=== PATIENT | female | born 1955 | race Caucasian/White ===

== ENCOUNTER 2016-03-15 18:53 | Inpatient (IN) | payer MEDICARE ==
[2016-03-15] MEDS ORDERED: MAGNESIUM SULFATE/D5W 100 ML IV ONE (19:25)
[2016-03-15] MEDS ORDERED: NORMAL SALINE 1000 ML 1,000 ML IV ONE ×3 (19:26→19:59)
[2016-03-15] MEDS ORDERED: VANCOMYCIN HCL INJ 1000 MG VIAL IV ONE (19:57)
--- NOTE | 2016-03-15 19:57 | ER Document Report ---
ED Respiratory Problem - General Stated Complaint: RESPIRATORY DISTRESS Time seen by provider: 19:50 Notes: Patient is a 60-year-old female that comes by EMS for chief complaint of respiratory distress. HEENT was found to be wheezing with poor air movement, given 3 treatments of DuoNeb, given Solu-Medrol, patient states she has been sick with a cough for the past several days and was "too sick to move", family had difficulty moving her reportedly. Patient has a history of asthma/COPD, has inhalers but is not on home oxygen. TRAVEL OUTSIDE OF THE [place] IN LAST 30 DAYS: No - Related Data Allergies/Adverse Reactions: No Known Allergies Allergy (Verified 01/06/15 15:02) Past Medical History - General Information source: Patient, Emergency Med Personnel - Social History Smoking Status: Current Every Day Smoker Frequency of alcohol use: None Drug Abuse: None Lives with: Family Family History: Reviewed & Not Pertinent - Past Medical History Cardiac Medical History: Reports: Hx Hypercholesterolemia, Hx Hypertension Denies: Hx Heart Attack Pulmonary Medical History: Reports: Hx Asthma, Hx COPD GI Medical History: Reports: Hx Gastroesophageal Reflux Disease Musculoskeltal Medical History: Reports Hx Arthritis Skin Medical History: Reports Hx Cellulitis Psychiatric Medical History: Reports: Hx Depression - Not currently depressed Past Surgical History: Reports: Hx Bowel Surgery, Hx Hysterectomy, Hx Tonsillectomy - Immunizations Hx Pneumococcal Vaccination: 03/03/12 Review of Systems - Review of Systems Constitutional: No symptoms reported EENT: No symptoms reported Cardiovascular: See HPI Respiratory: See HPI Gastrointestinal: No symptoms reported Genitourinary: No symptoms reported Female Genitourinary: No symptoms reported Musculoskeletal: No symptoms reported Skin: No symptoms reported Hematologic/Lymphatic: No symptoms reported Neurological/Psychological: No symptoms reported Physical Exam - Vital signs Vitals: Pulse Ox 87 L 03/15/16 19:17 Interpretation: Normal - General General appearance: Anxious In distress: Moderate - Patient with labored breathing and coughing - HEENT Head: Normocephalic, Atraumatic Eyes: Normal Pupils: PERRL - Respiratory Respiratory status: Respiratory distress, Labored, Tachypnea Breath sounds: Decreased air movement, Nonproductive cough, Rhonchi, Wheezing - Cardiovascular Rhythm: Regular, Tachycardia Heart sounds: Normal auscultation, S1 appreciated, S2 appreciated Murmur: No - Abdominal Inspection: Normal Distension: No distension Bowel sounds: Normal Tenderness: Nontender. No: Tender - Back Back: Normal, Nontender - Extremities General upper extremity: Normal inspection, Nontender, Normal color, Normal ROM , Normal temperature General lower extremity: Normal inspection, Nontender, Normal color, Normal ROM , Normal temperature, Normal weight bearing. No: Amado's sign - Neurological Neuro grossly intact: Yes Cognition: Normal Orientation: AAOx4 Jojo Coma Scale Eye Opening: Spontaneous [place] Coma Scale Verbal: Oriented [place] Coma Scale Motor: Obeys Commands [place] Coma Scale Total: 15 Speech: Normal Motor strength normal: LUE, RUE, LLE, RLE Sensory: Normal - Psychological Associated symptoms: Anxious - Skin Skin irregularity: other - Patient with widespread skin breakdown over her lower extremities, thighs, groin, and even on her back. Patient with excoriations all over her arms and hands. Built up urine and excrement in the groin region Course - Re-evaluation Re-evalutation: On initial examination patient in respiratory distress with tachypnea and hypoxia, labored breathing, wheezing and decreased lung sounds throughout. Patient also noted to be tachycardic, hypotensive, sepsis suspected. Referral lines placed, patient immediately placed on BiPAP, has already been given 3 DuoNeb treatments and Solu-Medrol, patient treated with magnesium, treating with broad-spectrum antibiotics. Patient reevaluated multiple times, given additional IV fluids, blood pressure is maintaining around 90s systolic on average. Patient is much improved after BiPAP therapy. Leukocytosis noted at 22.8 with elevation of neutrophils, lactic acid elevated at 4.1, bicarbonate and pH are low. Attempted to place a Woods catheter, however patient appears to have remained immobile for a long time, patient unable to open her legs, we are unable to open her legs to place a Woods catheter. We did clean the groin areas. Patient with widespread skin breakdown, most likely from lying in her excrement. I strongly suspect that a urinary tract infection as the source of her sepsis although this cannot be confirmed. Discussed with Dr. Kay, internal medicine, he will admit to the ICU. - Vital Signs Vital signs: Temp Pulse Resp BP Pulse Ox 23 H 93/73 L 100 03/15/16 19:51 03/15/16 19:51 03/15/16 19:51 - Laboratory Result Diagrams: 03/15/16 19:35 03/15/16 19:35 Laboratory results interpreted by me: 03/15/16 03/15/16 03/15/16 19:35 19:35 19:35 WBC 22.8 H RBC 3.69 L Hgb 10.4 L Hct 33.2 L MCHC 31.3 L RDW 16.2 H Seg Neuts % (Manual) 86 H Lymphocytes % (Manual) 7 L Abs Neuts (Manual) 19.6 H VBG pH 7.27 L Sodium 145.1 H Potassium 3.3 L Carbon Dioxide 20 L Glucose 129 H Lactic Acid Albumin 3.2 L 03/15/16 19:35 WBC RBC Hgb Hct MCHC RDW Seg Neuts % (Manual) Lymphocytes % (Manual) Abs Neuts (Manual) VBG pH Sodium Potassium Carbon Dioxide Glucose Lactic Acid 4.1 H Albumin Critical Care Note - Critical Care Note Total time excluding time spent on procedures (mins): 40 - severe sepsis, respiratory distress, hypoxia Comments: Please allow 40 minutes of critical care time for evaluation and treatment of patient with respiratory distress, SIRS, hypotension, tachycardia. Treatments of BiPAP therapy, IV fluids, antibiotics, magnesium, multiple re-evaluations, consultation and admission to the ICU. Discharge - Discharge Clinical Impression: Respiratory distress, SIRS (systemic inflammatory response syndrome), Tachycardia, COPD exacerbation, Hypoxia Hypotension Qualifiers: Hypotension type: unspecified hypotension type Qualified Code(s): I95.9 - Hypotension, unspecified Disposition: ADMITTED INPATIENT Admitting Provider: Hospitalist - Dr. Kay Unit Admitted: ICU
[2016-03-15] MEDS ORDERED: PIPERACILLIN/TAZOBACTAM 3.375 GM VIAL IV ONE (19:59)
[2016-03-15 20:43] LABS: VENOUS BLOOD BASE EXCESS -5.8 mmol/L; VENOUS BLOOD HCO3 21.4 mmol/L (20-32); VENOUS BLOOD PCO2 47.8 mmHg (35-63); VENOUS BLOOD PH 7.27 (7.30-7.42)
[2016-03-15 20:58] LABS: HEMATOCRIT 33.2 % (36.0-47.0); HEMOGLOBIN 10.4 g/dL (12.0-15.5); MEAN CORPUSCULAR HEMOGLOBIN 28.1 pg (27.0-33.4); MEAN CORPUSCULAR HGB CONC 31.3 g/dL (32.0-36.0); MEAN CORPUSCULAR VOLUME 90 fl (80-97); RED BLOOD COUNT 3.69 10^6/uL (3.72-5.28); RED CELL DISTRIBUTION WIDTH 16.2 % (11.5-14.0); WHITE BLOOD COUNT 22.8 10^3/uL (4.0-10.5)
[2016-03-15 21:03] LABS: ALANINE AMINOTRANSFERASE 19 U/L (9-52); ALBUMIN 3.2 g/dL (3.5-5.0); ALKALINE PHOSPHATASE 117 U/L (38-126); ANION GAP 19 (5-19); ASPARTATE AMINO TRANSFERASE 20 U/L (14-36); BILIRUBIN,TOTAL 0.9 mg/dL (0.2-1.3); BLOOD UREA NITROGEN 16 mg/dL (7-20); CALCIUM 8.6 mg/dL (8.4-10.2); CARBON DIOXIDE 20 mmol/L (22-30); CHLORIDE 106 mmol/L (98-107); CREATINE KINASE 33 U/L (30-135); CREATININE RESULT 0.89 mg/dL (0.52-1.25); GLUCOSE 129 mg/dL (75-110); POTASSIUM 3.3 mmol/L (3.6-5.0); SODIUM 145.1 mmol/L (137-145); TOTAL PROTEIN 6.3 g/dL (6.3-8.2)
[2016-03-15 21:11] LABS: CREATINE KINASE MB 0.84 ng/mL (<4.55)
[2016-03-15 21:12] LABS: TROPONIN I < 0.012 ng/mL
[2016-03-15 21:19] LABS: BASOPHILS % (MANUAL) 0 % (0-2); EOSINOPHILS % (MANUAL) 2 % (0-6); LYMPHOCYTES % (MANUAL) 7 % (13-45); TOTAL CELLS COUNTED 100
[2016-03-15 21:20] LABS: ANISOCYTOSIS SLIGHT; TOXIC GRANULATION SLIGHT
[2016-03-16] MEDS ORDERED: 1/2 NORMAL SALINE 1,000 ML IV ONE (00:22)
[2016-03-16] MEDS ORDERED: ALBUTEROL SULFATE 0.083% NEB 2.5 MG/3 ML AMPUL NEB PRN (00:50)
[2016-03-16 00:59] LABS: VENOUS BLOOD BASE EXCESS -5.7 mmol/L; VENOUS BLOOD HCO3 20.7 mmol/L (20-32); VENOUS BLOOD PCO2 44.6 mmHg (35-63); VENOUS BLOOD PH 7.28 (7.30-7.42)
[2016-03-16] MEDS ORDERED: VANCOMYCIN HCL 0 MG in DEXTROSE 5%-WATER 250 ML IV NR (01:00)
[2016-03-16] MEDS ORDERED: DEXTROSE 50%-WATER 25 GM/50 ML DISP.SYRIN IV PRN ×2 (01:01)
[2016-03-16] MEDS ORDERED: DEXTROSE 40% GEL 15 GM TUBE PO PRN ×2 (01:01)
[2016-03-16] MEDS ORDERED: GLUCAGON,HUMAN RECOMB 1 MG INJ IM PRN (01:01)
[2016-03-16] MEDS ORDERED: INSULIN LISPRO 100 UNIT/ML 3 ML VIAL SUBCUT PRN (01:01)
[2016-03-16] MEDS: POTASSI CL 20 MEQ/50 ML RIDER 50 ML IV SCH ×2 (01:57→07:00)
[2016-03-16] MEDS: POTASSI CL 20 MEQ/1/2NS 1L 1,000 ML IV PRN ×2 (01:58→06:53)
[2016-03-16] MEDS ORDERED: PIPERACILLIN/TAZOBACTAM 4.5 GM VIAL IV PRN (02:24)
[2016-03-16] MEDS ORDERED: VANCOMYCIN HCL INJ 1000 MG VIAL IV PRN (02:25)
[2016-03-16] MEDS ORDERED: VANCOMYCIN HCL 2,000 MG in DEXTROSE 5%-WATER 500 ML IV ONE (04:00)
--- NOTE | 2016-03-16 05:08 | PDOC H&P ---
History of Present Illness Admission Date/PCP: 03/15/16 22:39 Patient complains of: resp distress History of Present Illness: MARTIR CALIX is a 60 year old female with underlying asthma and COPD, not on home O2, who presents to ER via EMS for evaluation of above complaint. Patient has been discussed with emergency room nurse practitioner who evaluated the patient. Patient only mumbles incoherently and is able to provide no history whatsoever in terms of acute or chronic events, review of systems, personal habits, family history, etc. No friends or family are present. Old inpatient records are reviewed.. According to EMS, family stated she has been sick for with a cough for the past several days and was "too sick to move," with family having difficulty moving her reportedly. Patient apparently has been nonambulatory for some time, and has a hospital bed at home. Patient reportedly had urine and feces on her when initially evaluated by EMS. No further information available this point in time. Despite a number of attempts by ER personnel, Woods insertion attempts were unsuccessful due to inability to properly spread her thighs, felt due to chronic stiffness, combined with her body habitus, According to the ER staff. Laboratory results are listed in [employer] and are reviewed. X-ray summary results are listed below, with full report(s) reviewed. . EKG reviewed. Compared to tracing from 01/06/2015. Social history/personal habits: Per old records, was smoking at one time. No further information available this point in time. Allergies/adverse reactions NKDA. Home medications Home medications initially autopopulated into [employer] may not accurately reflect patient's true medications, dosages, and/or frequencies. Order has been entered for staff to contact family, outpatient physician, and/ or pharmacy to more accurately determine medications, dosages, and frequencies and to contact physician when that has been accomplished. REVIEW OF SYSTEMS: See history and present illness. No further information available this point in time. PHYSICAL EXAMINATION: 110.2 kg. Height is not recorded on the chart. Temperature 97.4. Blood pressure 110/74. Pulse 119 and regular. Respirations are 20 and unlabored. 100 percent saturation on BiPAP 50% /. Obese chronically ill appearing disheveled female appearing a number of years older than her stated age. Female emergency room nurse Marianne is present Skin is warm and dry. No grossly obvious evidence of rash in areas of skin examined. No subcutaneous nodules palpated. Per nursing staff, patient has extensive decubiti, combination stage I and stage II, on back and buttocks. Patient has areas of inflammation and excoriation, with eschar, on her upper medial thighs, right greater than left, along with her suprapubic region. ENT: Hearing grossly normal to normal conversation. Does Not protrude tongue on request. No Lock sign. Exam slightly limited by BiPAP mask with attaching straps. Eyes: No scleral icterus. Pupils equal and reactive to light at 5 mm. [place] conjunctivae. No raccoon eyes. Neck is supple and nontender to gentle active range of motion and palpation. Midline trachea. No palpable thyroid nodule mass enlargement or tenderness. Lymphatic: No palpable cervical or clavicular nodes. Neck and lymphatic exams limited by patient body habitus. Exam slightly limited by BiPAP mask with attaching straps. Psychiatric: Can't be adequately evaluated due to her current status. Lungs: Auscultation reveals equal breath sounds bilaterally. No use of accessory respiratory muscles. Slightly coarse breath sounds medially in each hemithorax. No wheezing. Cardiovascular: Heart regular rate and rhythm, without gallop murmur or rub. No carotid or abdominal aortic bruits. Very mild bilateral symmetric ankle and pedal edema. Faintly palpable dorsalis pedis pulses. Abdomen: soft, obese, somewhat distended nontender with positive bowel sounds. Unable to adequately evaluate abdomen for masses or organomegaly due to body habitus and distention. Extremities: Feet are warm and dry. No calf tenderness to compression. No grossly obvious visual evidence of calf swelling. manipulation of lower extremities quite limited due to what feels to be combination of chronic stiffness along with patient not understanding request to relax her muscles and bend her legs at the knees and hips. Neurologic: Moves upper extremities grossly normally. Patellar reflexes absent. Absent Babinski. Light touch can't be determined due to her current status.. Dorsiflexion and plantarflexion of feet 5 / 5 and symmetric. Does look at examiner when spoken to in a normal volume voice. Mumbles quietly, incoherently. Past Medical History Cardiac Medical History: Reports: Hyperlipidema, Hypertension Denies: Myocardial Infarction Pulmonary Medical History: Reports: Asthma, Chronic Obstructive Pulmonary Disease (COPD) Neurological Medical History: Reports: Other - Chronic inability to walk, of uncertain specific etiology. GI Medical History: Reports: Gastroesophageal Reflux Disease Musculoskeltal Medical History: Reports: Arthritis Psychiatric Medical History: Reports: Depression - Not currently depressed, Other - History of opiate dependency Past Surgical History Past Surgical History: Reports: Hysterectomy, Tonsillectomy Social History Information Source: Emergency Med Personnel, [facility] Lives with: Family Smoking Status: Current Every Day Smoker Frequency of Alcohol Use: Occasional Hx Recreational Drug Use: No Hx Prescription Drug Abuse: No - Advance Directive Resuscitation Status: Full Code Surrogate healthcare decision maker:: Her daughter jackelyn [place] old records. Family History Family History: Reviewed & Not Pertinent Parental Family History Reviewed: Yes - per old records Children Family History Reviewed: Yes Sibling(s) Family History Reviewed.: Yes Medication/Allergy Home Medications: Albuterol Sulfate [Proair Respiclick] 2 puff IH QIDP PRN 03/16/16 Amitriptyline HCl [Elavil 150 mg Tablet] 150 mg PO QHS 03/16/16 Cyclobenzaprine HCl [Flexeril 10 mg Tablet] 10 mg PO TID 03/16/16 Duloxetine HCl 30 mg PO DAILY 03/16/16 Ergocalciferol (Vitamin D2) [Drisdol 50,000 unit (1.25MG) Capsule] 50,000 unit PO MO@1000 03/16/16 Fesoterodine Fumarate [Toviaz] 8 mg PO QHS 03/16/16 Fluticasone Propionate [Flonase Nasal [place] 50 Mcg/[place] 16 gm] 1 spray NASL BIDP PRN 03/16/16 Lisinopril [Prinivil] 20 mg PO DAILY 03/16/16 Methadone HCl [Dolophine 10 mg Tablet] 5 mg PO QID 03/16/16 Nystatin [Mycostatin Cream 15 gm] 1 applic TOP QID 03/16/16 Omeprazole 40 mg PO DAILY 03/16/16 Simvastatin [Zocor 40 mg Tablet] 40 mg PO DAILY 03/16/16 Tramadol HCl [Tramadol HCl ER] 300 mg PO DAILY 03/16/16 Allergies/Adverse Reactions: No Known Allergies Allergy (Verified 03/16/16 23:43) Physical Exam Vital Signs: Temp Pulse Resp BP Pulse Ox 23 H 93/73 L 100 03/15/16 19:51 03/15/16 19:51 03/15/16 19:51 Results Impressions: Chest X-Ray 03/15/16 19:21 IMPRESSION: NO ACUTE RADIOGRAPHIC FINDING IN THE CHEST. Assessment & Plan - Diagnosis (1) Acute and chronic respiratory failure with hypercapnia Is this a current diagnosis for this admission?: YesPlan: Patient will be admitted under COPD exacerbation and pneumonia protocol. Scheduled DuoNeb's. PRN albuterol nebs Solu-Medrol IV Pepcid for gastritis prophylaxis. Antibiotics will consist of intravenous Levaquin and vancomycin, along with Zosyn, for possible community-acquired pneumonia, with ICU admission. Pharmacy to assist with vancomycin dosing.. Patient is a full code. Knee high SCDs for DVT prophylaxis, along with subcutaneous Lovenox Time spent in evaluation and management of patient: 65 minutes. (2) Acute encephalopathy Is this a current diagnosis for this admission?: YesPlan: Likely multifactorial, including infection and possible dehydration. Hopefully will resolve with time and treatment. CT scan of brain without contrast. Nothing by mouth for the present time. (3) Anemia Qualifiers: Anemia type: unspecified type Qualified Code(s): D64.9 - Anemia, unspecified Is this a current diagnosis for this admission?: YesPlan: Chronic problem. Repeat CBC with differential. No need for transfusion at present. (4) COPD exacerbation Is this a current diagnosis for this admission?: Yes (5) Hypernatremia Is this a current diagnosis for this admission?: YesPlan: Likely due to an element of dehydration. IV fluids. Follow-up chemistry. (6) Hypokalemia Is this a current diagnosis for this admission?: YesPlan: Potassium supplement. Follow-up chemistry. (7) Hypotension Qualifiers: Hypotension type: unspecified hypotension type Qualified Code(s): I95.9 - Hypotension, unspecified Is this a current diagnosis for this admission?: YesPlan: Likely due to at least an element of dehydration, along with possibly sepsis also. Has responded nicely to IV fluid boluses and maintenance IV fluid. Follow closely. When necessary vasopressor. (8) Multiple excoriations Is this a current diagnosis for this admission?: YesPlan: Local wound care, including bacitracin ointment. (9) Decubitus ulcer of back, unstageable Is this a current diagnosis for this admission?: YesPlan: Innovative mattress. Turn every 2 hours. Dietary consult. Discharge planning to assess for needs; may need half-way placement. (10) Decubitus ulcer of buttock, unstageable Qualifiers: Laterality: unspecified laterality Qualified Code(s): L89.300 - Pressure ulcer of unspecified buttock, unstageable Is this a current diagnosis for this admission?: Yes (11) Unable to ambulate Is this a current diagnosis for this admission?: Yes - Inpatient Certification Based on my medical assessment, after consideration of the patient's comorbidities, presenting symptoms, or acuity I expect that the services needed warrant INPATIENT care.: Yes I certify that my determination is in accordance with my understanding of Medicare's requirements for reasonable and necessary INPATIENT services [42 CFR 412.3e].: Yes Medical Necessity: Significant Comorbidiites Make Outpatient Treatment Too Risky , Need Close Monitoring Due to Risk of Patient Decompensation, Need For IV Fluids, Need For Continuous Telemetry Monitoring, Need for Nebulizer Therapy and Monitoring of Response, Need for IV Antibiotics, Risk of Complication if Not Cared For in Hospital, Risk of Diagnosis Which Will Require Inpatient Eval/ Care/Monitoring Post Hospital Care: D/C or Transfer Summary
[2016-03-16 05:38] LABS: APPEARANCE,URINE TURBID; BILIRUBIN,URINE NEGATIVE (NEGATIVE); GLUCOSE, URINE NEGATIVE (NEGATIVE); KETONES,URINE NEGATIVE (NEGATIVE); LEUKOCYTE ESTERASE,URINE MODERATE (NEGATIVE); NITRITE,URINE POSITIVE (NEGATIVE); PROTEIN,URINE 100 mg/dL (NEGATIVE); URINE SPECIFIC GRAVITY 1.016
[2016-03-16 06:16] LABS: VENOUS BLOOD BASE EXCESS -4.1 mmol/L; VENOUS BLOOD HCO3 23.7 mmol/L (20-32); VENOUS BLOOD PCO2 57.5 mmHg (35-63); VENOUS BLOOD PH 7.23 (7.30-7.42)
[2016-03-16 06:23] LABS: HEMATOCRIT 30.3 % (36.0-47.0); HEMOGLOBIN 8.9 g/dL (12.0-15.5); HGB HCT DIFFERENCE -3.6; MEAN CORPUSCULAR HEMOGLOBIN 27.1 pg (27.0-33.4); MEAN CORPUSCULAR HGB CONC 29.5 g/dL (32.0-36.0); MEAN CORPUSCULAR VOLUME 92 fl (80-97); RED BLOOD COUNT 3.29 10^6/uL (3.72-5.28); RED CELL DISTRIBUTION WIDTH 16.4 % (11.5-14.0)
[2016-03-16 06:29] LABS: ANION GAP 12 (5-19); BLOOD UREA NITROGEN 16 mg/dL (7-20); CALCIUM 8.1 mg/dL (8.4-10.2); CARBON DIOXIDE 23 mmol/L (22-30); CHLORIDE 112 mmol/L (98-107); CREATININE RESULT 0.77 mg/dL (0.52-1.25); GLUCOSE 153 mg/dL (75-110); POTASSIUM 3.4 mmol/L (3.6-5.0); SODIUM 147.1 mmol/L (137-145)
[2016-03-16] MEDS: METHYLPREDNISOLONE INJ 125 MG/2 ML SDV IV SCH ×3 (06:51→21:18)
[2016-03-16 07:10] LABS: BASOPHILS % (MANUAL) 0 % (0-2); EOSINOPHILS % (MANUAL) 0 % (0-6); LYMPHOCYTES % (MANUAL) 2 % (13-45); TOTAL CELLS COUNTED 100
[2016-03-16 07:13] LABS: ACANTHOCYTES 1+; ANISOCYTOSIS 1+; TOXIC GRANULATION 1+
[2016-03-16 07:14] LABS: BURR CELLS 2+
[2016-03-16] MEDS ORDERED: INFLUENZA ADLT QUAD (36MOS+) 2016-17 VAC 0.5 ML SYR IM PRN (08:19)
[2016-03-16] MEDS: IPRATROPIUM/ALBUTEROL 0.5-2.5 MG/3 ML AMPUL NEB SCH ×3 (08:28→20:59)
[2016-03-16] MEDS ORDERED: VANCOMYCIN HCL 1,250 MG in DEXTROSE 5%-WATER 250 ML IV ONE (08:45)
[2016-03-16] MEDS: PIPERACILLIN SODIUM/TAZOBACTAM 4.5 GM in NORMAL SALINE 100 ML IV SCH ×3 (09:14→21:18)
[2016-03-16] MEDS: VANCOMYCIN HCL 1,250 MG in DEXTROSE 5%-WATER 250 ML IV SCH ×2 (09:15→22:45)
[2016-03-16] MEDS: ENOXAPARIN SODIUM INJ 40 MG/0.4 ML DISP.SYRIN SUBCUT SCH (09:25)
--- NOTE | 2016-03-16 09:25 | EKG REPORT ---
SEVERITY:- ABNORMAL ECG - SINUS TACHYCARDIA FIRST DEGREE AV BLOCK LOW VOLTAGE THROUGHOUT BORDERLINE T ABNORMALITIES, ANT-LAT LEADS : Confirmed by: Marily Duarte MD 16-Mar-2016 09:24:00
[2016-03-16] MEDS: FAMOTIDINE INJ/PF 20 MG/2 ML SDV IV SCH ×2 (09:27→21:18)
[2016-03-16] MEDS: 1/2 NORMAL SALINE 1,000 ML IV PRN ×2 (09:27→21:18)
[2016-03-16] MEDS ORDERED: POTASSI CL 20 MEQ/50 ML RIDER 20 MEQ/50 ML RTUPB IV SCH (09:45)
[2016-03-16] MEDS ORDERED: LEVOFLOXACIN 750 MG/D5W RTU 150 ML IV SCH (10:00)
[2016-03-16] MEDS ORDERED: MORPHINE SULFATE 10 MG/ML INJ IV ONE (11:30)
[2016-03-16] MEDS: BACITRACIN ZINC OINTMENT 15 GM TP SCH (12:33)
[2016-03-16] MEDS: LEVOFLOXACIN 750 MG/D5W RTU 750 MG/150 ML RTUPB IV SCH (14:42)
[2016-03-16] MEDS ORDERED: POTASSIUM CHLORIDE 10 MEQ TABLET.SA PO ONE (17:00)
--- NOTE | 2016-03-16 19:37 | XCELERA REPORT ---
[address] [address] Transthoracic Echocardiogram Report Name: MARTIR CALIX Age: 60 yrs Gender: Female : 1955 Patient Status: Inpatient Patient Location: ICU\S\610\S\A Study Date: 03/16/2016 11:25 AM Weight: 243 lb Procedure: A complete two-dimensional transthoracic echocardiogram was performed (2D, M-mode, spectral and color flow Doppler). The study was technically difficult with many images being suboptimal in quality. Reason For Study: abn ct head Ordering Physician: YAZ SAENZ Performed By: Vickie Caballero Interpretation Summary The study was technically difficult with many images being suboptimal in quality. The left ventricular ejection fraction is normal. There is borderline concentric left ventricular hypertrophy. The left ventricle is grossly normal size. Doppler measurements suggest reversible restrictive left ventricular relaxation, which is associated with grade III/IV or moderate diastolic dysfunction Not all wall segments were well visualized. Regional wall motion abnormalities cannot be excluded due to limited visualization. The right ventricle is mildly dilated. The left atrial size is normal. The right atrium is normal. There is a trace amount of mitral regurgitation There is no mitral valve stenosis. No aortic regurgitation is present. There is no aortic valve stenosis There is a trace or physiologic amount of tricuspid regurgitation Tricuspid regurgitation jet envelope not well defined to measure RV systolic pressure accurately. Minimal pericardial effusion. Consider JUSTICE if clinically indicated. May consider mobile cardiac telemetry monitoring (MCT) for ruling out transient AFIB. MMode/2D Measurements \T\ Calculations RVDd: 3.6 cm LVIDd: 4.1 cm FS: 34.5 % Ao root diam: 3.1 cm IVSd: 0.96 cm LVIDs: 2.7 cm EDV(Teich): 72.3 ml Ao root area: 7.5 cm2 LVPWd: 1.0 cm ESV(Teich): 25.9 ml LA dimension: 3.1 cm EF(Teich): 64.1 % Doppler Measurements \T\ Calculations MV E max favian: MV P1/2t max favian: Ao V2 max: LV V1 max P.2 cm/sec 96.7 cm/sec 109.9 cm/sec 1.9 mmHg MV A max favian: MV P1/2t: 38.8 msec Ao max PG: LV V1 max: 47.4 cm/sec MVA(P1/2t): 5.7 cm2 4.8 mmHg 68.6 cm/sec MV E/A: 2.1 MV dec slope: 731.2 cm/sec2 MV dec time: 0.12 sec PA V2 max: TR max favian: 102.7 cm/sec 226.9 cm/sec PA max PG: TR max P.6 mmHg 4.2 mmHg Left Ventricle The left ventricle is grossly normal size. There is borderline concentric left ventricular hypertrophy. The left ventricular ejection fraction is normal. Doppler measurements suggest reversible restrictive left ventricular relaxation, which is associated with grade III/IV or moderate diastolic dysfunction. Not all wall segments were well visualized. Regional wall motion abnormalities cannot be excluded due to limited visualization. Right Ventricle The right ventricle is mildly dilated. The right ventricle appears to be hypertrophied. The right ventricular systolic function is normal. Atria The right atrium is normal. The left atrial size is normal. Interarterial septum not well visualized and not well dopplered. Cannot comment on ASD/PFO presence. Mitral Valve There is mild mitral annular calcification. There is no mitral valve stenosis. There is a trace amount of mitral regurgitation. Aortic Valve The aortic valve is not well visualized secondary to technical limitations. There is no aortic valve stenosis. No aortic regurgitation is present. Tricuspid Valve The tricuspid valve is not well visualized secondary to technical limitations. There is no tricuspid stenosis. There is a trace or physiologic amount of tricuspid regurgitation. Tricuspid regurgitation jet envelope not well defined to measure RV systolic pressure accurately. Pulmonic Valve The pulmonic valve is not well visualized. Great Vessels The aortic root is not well visualized. The inferior vena cava appeared normal and decreased < 50% with respiration (RAP 10-15 mmHg). Effusions Minimal pericardial effusion. Incidental Findings Consider JUSTICE if clinically indicated. May consider mobile cardiac telemetry monitoring (MCT) for ruling out transient AFIB. : YAZ SAENZ > Farzana Murillo
[2016-03-17] MEDS: PIPERACILLIN SODIUM/TAZOBACTAM 4.5 GM in NORMAL SALINE 100 ML IV SCH ×2 (02:39→08:42)
[2016-03-17] MEDS ORDERED: GUAIFENESIN SYRP 200 MG/10 ML UDC PO PRN (02:59)
[2016-03-17 04:53] LABS: HEMATOCRIT 29.8 % (36.0-47.0); HEMOGLOBIN 8.8 g/dL (12.0-15.5); HGB HCT DIFFERENCE -3.4; MEAN CORPUSCULAR HEMOGLOBIN 27.5 pg (27.0-33.4); MEAN CORPUSCULAR HGB CONC 29.6 g/dL (32.0-36.0); MEAN CORPUSCULAR VOLUME 93 fl (80-97); RED BLOOD COUNT 3.21 10^6/uL (3.72-5.28); RED CELL DISTRIBUTION WIDTH 16.6 % (11.5-14.0); WHITE BLOOD COUNT 11.3 10^3/uL (4.0-10.5)
[2016-03-17 05:14] LABS: ANION GAP 11 (5-19); BLOOD UREA NITROGEN 16 mg/dL (7-20); CALCIUM 8.3 mg/dL (8.4-10.2); CARBON DIOXIDE 21 mmol/L (22-30); CHLORIDE 110 mmol/L (98-107); CREATININE RESULT 0.74 mg/dL (0.52-1.25); GLUCOSE 138 mg/dL (75-110); SODIUM 142.4 mmol/L (137-145)
[2016-03-17] MEDS: METHYLPREDNISOLONE INJ 125 MG/2 ML SDV IV SCH ×3 (05:27→21:13)
[2016-03-17 05:35] LABS: POTASSIUM 4.5 mmol/L (3.6-5.0)
[2016-03-17] MEDS: IPRATROPIUM/ALBUTEROL 0.5-2.5 MG/3 ML AMPUL NEB SCH (07:44)
[2016-03-17] MEDS: ENOXAPARIN SODIUM INJ 40 MG/0.4 ML DISP.SYRIN SUBCUT SCH (08:41)
[2016-03-17] MEDS ORDERED: LEVALBUTEROL HCL NEB 1.25 MG/3 ML AMPUL NEB PRN (09:11)
--- NOTE | 2016-03-17 09:25 | PDOC PROGRESS REPORT ---
Subjective Progress Note for:: 03/17/16 Subjective:: Patient is more awake and alert. Patient is off BiPAP. Patient is tolerating oral intake. She complains of shortness of breath earlier and having asthma. She also has left upper extremity weakness for a week. Head CT scan on presentation was abnormal. Patient is nonambulatory however due to chronic debility. Multiple decubitus ulcers. Physical Exam Vital Signs: Temp Pulse Resp BP Pulse Ox 98.1 F 109 H 24 H 132/85 H 98 03/17/16 08:39 03/17/16 08:39 03/17/16 08:39 03/17/16 08:39 03/17/16 08:39 Intake & Output 03/16/16 03/17/16 03/18/16 06:59 06:59 06:59 Intake Total 3217 Output Total 250 1120 Balance -250 2097 Weight 101.3 kg 101.4 kg General appearance: PRESENT: no acute distress, cooperative, morbidly obese Head exam: PRESENT: normocephalic Eye exam: PRESENT: EOMI Mouth exam: PRESENT: moist, neck supple Neck exam: ABSENT: JVD Respiratory exam: PRESENT: rhonchi - Minimal bilateral, unlabored, wheezes - Minimal Cardiovascular exam: PRESENT: RRR. ABSENT: gallop GI/Abdominal exam: PRESENT: hypoactive bowel sounds, soft. ABSENT: distended, tenderness Extremities exam: PRESENT: +1 edema Neurological exam: PRESENT: alert, awake Psychiatric exam: PRESENT: normal mood Skin exam: PRESENT: dry, warm, other - Multiple dried scars both upper and lower extremities. Has multiple wounds on the thigh medial aspect, perineal area, hips and buttocks stage I to 2.. ABSENT: cyanosis Results Laboratory Results: 03/17/16 04:09 03/17/16 04:09 03/16/16 03/17/16 03/17/16 09:21 04:09 04:09 WBC 11.3 H RBC 3.21 L Hgb 8.8 L Hct 29.8 L MCV 93 MCH 27.5 MCHC 29.6 L RDW 16.6 H Plt Count 239 Sodium 142.4 Potassium 4.5 D Chloride 110 H Carbon Dioxide 21 L Anion Gap 11 BUN 16 Creatinine 0.74 Est GFR ( Amer) > 60 Est GFR (Non-Af Amer) > 60 Glucose 138 H Calcium 8.3 L Free T4 2.31 H 03/16/16 06:04 Troponin I < 0.012 Impressions: Chest X-Ray 03/15/16 19:21 IMPRESSION: NO ACUTE RADIOGRAPHIC FINDING IN THE CHEST. Carotid Doppler Study 03/16/16 00:00 IMPRESSION: NO HEMODYNAMICALLY SIGNIFICANT STENOSIS. Head CT 03/16/16 00:00 IMPRESSION: Diminished bernal-white differentiation of the inferior right frontal lobe may indicate evolving ischemia or artifact ; consider CT/MR surveillance within 48-72 hours. Assessment & Plan - Diagnosis (1) Acute and chronic respiratory failure with hypercapnia Is this a current diagnosis for this admission?: Yes (2) Acute encephalopathy Is this a current diagnosis for this admission?: Yes (3) COPD exacerbation Is this a current diagnosis for this admission?: Yes (4) Hypotension Qualifiers: Hypotension type: unspecified hypotension type Qualified Code(s): I95.9 - Hypotension, unspecified Is this a current diagnosis for this admission?: Yes (5) Multiple excoriations Is this a current diagnosis for this admission?: Yes (6) Decubitus ulcer limited to breakdown of skin (stage 2) Qualifiers: Pressure ulcer location: unspecified location Qualified Code(s): L89.92 - Pressure ulcer of unspecified site, stage 2 Is this a current diagnosis for this admission?: Yes (7) UTI (urinary tract infection) Qualifiers: Urinary tract infection type: site unspecified Hematuria presence: with hematuria Qualified Code(s): N39.0 - Urinary tract infection, site not specified (8) Dehydration Is this a current diagnosis for this admission?: Yes (9) Anemia Qualifiers: Anemia type: unspecified type Qualified Code(s): D64.9 - Anemia, unspecified Is this a current diagnosis for this admission?: Yes (10) Ambulatory dysfunction Is this a current diagnosis for this admission?: Yes (11) GERD (gastroesophageal reflux disease) Qualifiers: Esophagitis presence: without esophagitis Qualified Code(s): K21.9 - Gastro-esophageal reflux disease without esophagitis Is this a current diagnosis for this admission?: Yes (12) Hypertension Qualifiers: Hypertension type: essential hypertension Qualified Code(s): I10 - Essential (primary) hypertension Is this a current diagnosis for this admission?: Yes (13) Hyperlipidemia Qualifiers: Hyperlipidemia type: unspecified Qualified Code(s): E78.5 - Hyperlipidemia, unspecified Is this a current diagnosis for this admission?: Yes (14) Depression Qualifiers: Depression Type: unspecified Qualified Code(s): F32.9 - Major depressive disorder, single episode, unspecified Is this a current diagnosis for this admission?: Yes - Time Time Spent with patient: 25-34 minutes - Plan Summary Plan Summary: We will continue IV hydration. Obtain MRI of the brain. Discontinue vancomycin and Zosyn but keep the Levaquin. Follow urine culture. Patient's mental status changes likely was medication induced and metabolic in nature. We will consult senior media planner for placement. Reported family unable to care. Wound care as per protocol. Monitor hematocrit. H&H reviewed and seems to be patient is approaching baseline but we will continue to monitor.
[2016-03-17] MEDS ORDERED: LORAZEPAM 1 MG TABLET PO PRN (10:08)
--- NOTE | 2016-03-17 10:12 | EKG REPORT ---
SEVERITY:- ABNORMAL ECG - JUNCTIONAL TACHYCARDIA LOW VOLTAGE THROUGHOUT ST ELEVATION, CONSIDER ANTEROLATERAL INJURY : Confirmed by: Marily Duarte MD 17-Mar-2016 10:11:25
[2016-03-17] MEDS: FAMOTIDINE INJ/PF 20 MG/2 ML SDV IV SCH ×2 (10:36→21:13)
[2016-03-17] MEDS: LEVOFLOXACIN 750 MG/D5W RTU 750 MG/150 ML RTUPB IV SCH (11:21)
[2016-03-17] MEDS: BACITRACIN ZINC OINTMENT 15 GM TP SCH (12:25)
[2016-03-17] MEDS: LEVALBUTEROL HCL NEB 1.25 MG/3 ML AMPUL NEB SCH ×2 (14:42→21:09)
[2016-03-17] MEDS: IPRATROPIUM BROMIDE 0.02% NEB 0.5 MG/2.5 ML AMPUL NEB SCH ×2 (14:43→21:10)
[2016-03-17] MEDS: 1/2 NORMAL SALINE 1,000 ML IV PRN (15:12)
[2016-03-18] MEDS: LEVALBUTEROL HCL NEB 1.25 MG/3 ML AMPUL NEB SCH ×4 (02:44→20:34)
[2016-03-18] MEDS: IPRATROPIUM BROMIDE 0.02% NEB 0.5 MG/2.5 ML AMPUL NEB SCH ×4 (02:44→20:33)
[2016-03-18] MEDS: METHYLPREDNISOLONE INJ 125 MG/2 ML SDV IV SCH (05:59)
[2016-03-18 07:49] LABS: HEMATOCRIT 27.2 % (36.0-47.0); HEMOGLOBIN 8.4 g/dL (12.0-15.5); MEAN CORPUSCULAR HEMOGLOBIN 27.7 pg (27.0-33.4); MEAN CORPUSCULAR HGB CONC 30.7 g/dL (32.0-36.0); MEAN CORPUSCULAR VOLUME 90 fl (80-97); RED BLOOD COUNT 3.02 10^6/uL (3.72-5.28); RED CELL DISTRIBUTION WIDTH 16.1 % (11.5-14.0); WHITE BLOOD COUNT 6.7 10^3/uL (4.0-10.5)
[2016-03-18] MEDS: FAMOTIDINE INJ/PF 20 MG/2 ML SDV IV SCH ×2 (09:53→22:34)
[2016-03-18] MEDS: ENOXAPARIN SODIUM INJ 40 MG/0.4 ML DISP.SYRIN SUBCUT SCH (09:53)
[2016-03-18] MEDS: BACITRACIN ZINC OINTMENT 15 GM TP SCH (09:53)
--- NOTE | 2016-03-18 11:32 | PDOC PROGRESS REPORT ---
Subjective Progress Note for:: 03/18/16 Subjective:: Patient is awake alert and denies any new complaints. COPD exacerbation is better. Patient reports breathing is better. Denies having any diarrhea. No temperature spikes nausea or vomiting. Patient is wanting to eat. Patient reports she couldn't take care of herself as well as her family. Physical Exam Vital Signs: Temp Pulse Resp BP Pulse Ox 98.2 F 108 H 20 122/86 H 98 03/18/16 07:38 03/18/16 08:00 03/18/16 07:55 03/18/16 07:38 03/18/16 07:38 Intake & Output 03/17/16 03/18/16 03/19/16 06:59 06:59 06:59 Intake Total 3217 3540 Output Total 1120 800 Balance 2097 2740 Weight 101.4 kg 100.4 kg 100.4 kg General appearance: PRESENT: no acute distress, cooperative, morbidly obese Head exam: PRESENT: normocephalic Eye exam: PRESENT: EOMI Mouth exam: PRESENT: moist, neck supple Neck exam: ABSENT: JVD Respiratory exam: PRESENT: rhonchi - Scattered bilateral, unlabored. ABSENT: wheezes Cardiovascular exam: PRESENT: RRR. ABSENT: gallop GI/Abdominal exam: PRESENT: hypoactive bowel sounds, soft. ABSENT: distended, tenderness Extremities exam: PRESENT: +1 edema Neurological exam: PRESENT: alert, awake Psychiatric exam: PRESENT: normal mood. ABSENT: agitated Focused psych exam: ABSENT: restlessness Skin exam: PRESENT: other - Multiple stage I to 2 unstageable wounds on the thigh and buttocks, perineum.. ABSENT: cyanosis Results Laboratory Results: 03/18/16 06:13 03/17/16 04:09 03/18/16 06:13 WBC 6.7 RBC 3.02 L Hgb 8.4 L Hct 27.2 L MCV 90 MCH 27.7 MCHC 30.7 L RDW 16.1 H Plt Count 224 03/16/16 05:10 Catheterized Urine Urine Culture - Final Escherichia Coli 03/16/16 06:04 Troponin I < 0.012 Impressions: Chest X-Ray 03/15/16 19:21 IMPRESSION: NO ACUTE RADIOGRAPHIC FINDING IN THE CHEST. Carotid Doppler Study 03/16/16 00:00 IMPRESSION: NO HEMODYNAMICALLY SIGNIFICANT STENOSIS. Head MRI 03/18/16 00:00 IMPRESSION: No evidence of acute infarct. Head CT 03/18/16 06:00 IMPRESSION: CHRONIC CHANGES OF ATROPHY AND MICROVASCULAR ISCHEMIA. NO ACUTE PROCESS. Assessment & Plan - Diagnosis (1) Acute and chronic respiratory failure with hypercapnia Is this a current diagnosis for this admission?: Yes (2) Acute encephalopathy Is this a current diagnosis for this admission?: Yes (3) COPD exacerbation Is this a current diagnosis for this admission?: Yes (4) Hypotension Qualifiers: Hypotension type: unspecified hypotension type Qualified Code(s): I95.9 - Hypotension, unspecified Is this a current diagnosis for this admission?: Yes (5) Multiple excoriations Is this a current diagnosis for this admission?: Yes (6) Decubitus ulcer limited to breakdown of skin (stage 2) Qualifiers: Pressure ulcer location: unspecified location Qualified Code(s): L89.92 - Pressure ulcer of unspecified site, stage 2 Is this a current diagnosis for this admission?: Yes (7) UTI (urinary tract infection) Qualifiers: Urinary tract infection type: site unspecified Hematuria presence: with hematuria Qualified Code(s): N39.0 - Urinary tract infection, site not specified (8) Dehydration Is this a current diagnosis for this admission?: Yes (9) Anemia Qualifiers: Anemia type: unspecified type Qualified Code(s): D64.9 - Anemia, unspecified Is this a current diagnosis for this admission?: Yes (10) Ambulatory dysfunction Is this a current diagnosis for this admission?: Yes (11) GERD (gastroesophageal reflux disease) Qualifiers: Esophagitis presence: without esophagitis Qualified Code(s): K21.9 - Gastro-esophageal reflux disease without esophagitis Is this a current diagnosis for this admission?: Yes (12) Hypertension Qualifiers: Hypertension type: essential hypertension Qualified Code(s): I10 - Essential (primary) hypertension Is this a current diagnosis for this admission?: Yes (13) Hyperlipidemia Qualifiers: Hyperlipidemia type: unspecified Qualified Code(s): E78.5 - Hyperlipidemia, unspecified Is this a current diagnosis for this admission?: Yes (14) Depression Qualifiers: Depression Type: unspecified Qualified Code(s): F32.9 - Major depressive disorder, single episode, unspecified Is this a current diagnosis for this admission?: Yes - Time Time Spent with patient: 25-34 minutes - Plan Summary Plan Summary: Continue hydration but decrease the rate. Begin diet. CT and MRI did not reveal any acute stroke. We will switch to oral steroids. Continue bronchodilators. Discontinue Levaquin as urine culture shows resistance. Begin ceftriaxone. Consult network planner for placement.
--- NOTE | 2016-03-18 12:17 | EKG REPORT ---
SEVERITY:- DEFECTIVE ECG - SINUS TACHYCARDIA LOW VOLTAGE THROUGHOUT NONSPECIFIC T ABNORMALITIES, ANT-LAT LEADS : Confirmed by: Maximilian Ornelas MD 18-Mar-2016 12:17:01
[2016-03-18] MEDS ORDERED: PROPRANOLOL HCL 10 MG TABLET PO SCH (14:00)
[2016-03-18] MEDS: CEFTRIAXONE 1 GM/D5W RTU 1 GM/50 ML RTUPB IV SCH (14:21)
[2016-03-18] MEDS ORDERED: METHYLPREDNISOLONE INJ 125 MG/2 ML SDV IV ONE (19:30)
[2016-03-18] MEDS ORDERED: FUROSEMIDE INJ/PF 40 MG/4 ML SDV IV ONE (19:30)
[2016-03-18] MEDS ORDERED: FUROSEMIDE INJ/PF 20 MG/2 ML SDV IV ONE (21:45)
[2016-03-18] MEDS ORDERED: AMITRIPTYLINE HCL 75 MG TABLET PO SCH (22:00)
[2016-03-18] MEDS: CLINDAMYCIN 600 MG/D5W RTU 50 ML IV SCH (22:34)
[2016-03-18] MEDS: METHADONE HCL 10 MG TABLET PO SCH (22:34)
[2016-03-19] MEDS: IPRATROPIUM BROMIDE 0.02% NEB 0.5 MG/2.5 ML AMPUL NEB SCH ×4 (01:54→19:41)
[2016-03-19] MEDS: LEVALBUTEROL HCL NEB 1.25 MG/3 ML AMPUL NEB SCH ×4 (01:54→19:42)
[2016-03-19] MEDS: METHADONE HCL 10 MG TABLET PO SCH ×4 (04:11→22:01)
[2016-03-19] MEDS ORDERED: METHYLPREDNISOLONE INJ 125 MG/2 ML SDV IV SCH (06:00)
[2016-03-19] MEDS: 1/2 NORMAL SALINE 1,000 ML IV PRN (06:14)
[2016-03-19] MEDS: CLINDAMYCIN 600 MG/D5W RTU 50 ML IV SCH ×3 (06:15→22:02)
[2016-03-19] MEDS: ENOXAPARIN SODIUM INJ 40 MG/0.4 ML DISP.SYRIN SUBCUT SCH (08:29)
[2016-03-19] MEDS ORDERED: PREDNISONE 20 MG TABLET PO SCH (10:00)
[2016-03-19] MEDS: FAMOTIDINE INJ/PF 20 MG/2 ML SDV IV SCH ×2 (10:22→22:02)
[2016-03-19] MEDS: BACITRACIN ZINC OINTMENT 15 GM TP SCH (10:22)
--- NOTE | 2016-03-19 10:37 | PDOC PROGRESS REPORT ---
Subjective Progress Note for:: 03/19/16 Subjective:: Patient's main complaint is that she cannot find her glasses. She reports that her breathing is doing better. Physical Exam Vital Signs: Temp Pulse Resp BP Pulse Ox 98.5 F 102 H 18 107/63 100 03/19/16 08:02 03/19/16 08:10 03/19/16 08:10 03/19/16 08:02 03/19/16 08:10 Intake & Output 03/18/16 03/19/16 03/20/16 06:59 06:59 06:59 Intake Total 3540 3333 Output Total 800 2000 Balance 2740 1333 Weight 100.4 kg 107.5 kg General appearance: PRESENT: no acute distress Eye exam: PRESENT: conjunctiva pink Mouth exam: PRESENT: moist, tongue midline Neck exam: ABSENT: JVD Respiratory exam: PRESENT: wheezes - Weeks is mostly in the left lung.. ABSENT : rales, rhonchi Cardiovascular exam: PRESENT: RRR. ABSENT: diastolic murmur, rubs, systolic murmur GI/Abdominal exam: PRESENT: normal bowel sounds, soft. ABSENT: distended, guarding, mass, organolmegaly, rebound, tenderness Extremities exam: ABSENT: calf tenderness, clubbing, pedal edema Neurological exam: PRESENT: other - Patient is slightly confused but is able to be reoriented. Psychiatric exam: PRESENT: appropriate affect Skin exam: PRESENT: other - Several excoriations on her thighs. Results Laboratory Results: 03/18/16 06:13 03/17/16 04:09 03/16/16 05:10 Catheterized Urine Urine Culture - Final Escherichia Coli 03/16/16 06:04 Troponin I < 0.012 Impressions: Carotid Doppler Study 03/16/16 00:00 IMPRESSION: NO HEMODYNAMICALLY SIGNIFICANT STENOSIS. Chest X-Ray 03/18/16 00:00 IMPRESSION: Minimal right basilar densities as noted above. Remaining lung gonzalez are clear. Other findings as noted above Head MRI 03/18/16 00:00 IMPRESSION: No evidence of acute infarct. Head CT 03/18/16 06:00 IMPRESSION: CHRONIC CHANGES OF ATROPHY AND MICROVASCULAR ISCHEMIA. NO ACUTE PROCESS. Thyroid Ultrasound 03/19/16 00:00 IMPRESSION: No suspicious findings. Assessment & Plan - Diagnosis (1) Acute and chronic respiratory failure with hypercapnia Is this a current diagnosis for this admission?: YesPlan: This is secondary to an acute COPD exacerbation. The patient is slowly improving. (2) COPD exacerbation Is this a current diagnosis for this admission?: YesPlan: The patient is on steroids, nebulizers, antibiotics. She is slowly improving. (3) Acute encephalopathy Is this a current diagnosis for this admission?: YesPlan: Patient was slightly confused today but overall has improved. This most likely secondary to her urinary tract infection as well as acute COPD exacerbation. (4) Depression Qualifiers: Depression Type: unspecified Qualified Code(s): F32.9 - Major depressive disorder, single episode, unspecified Is this a current diagnosis for this admission?: Yes (5) Anemia Qualifiers: Anemia type: unspecified type Qualified Code(s): D64.9 - Anemia, unspecified Is this a current diagnosis for this admission?: YesPlan: Hemoglobin has drifted down slightly but no evidence for active bleeding. (6) GERD (gastroesophageal reflux disease) Qualifiers: Esophagitis presence: without esophagitis Qualified Code(s): K21.9 - Gastro-esophageal reflux disease without esophagitis Is this a current diagnosis for this admission?: YesPlan: Asymptomatic (7) Hyperlipidemia Qualifiers: Hyperlipidemia type: unspecified Qualified Code(s): E78.5 - Hyperlipidemia, unspecified Is this a current diagnosis for this admission?: YesPlan: Continue with diet (8) Hypernatremia Is this a current diagnosis for this admission?: YesPlan: Resolved. (9) Hypertension Qualifiers: Hypertension type: essential hypertension Qualified Code(s): I10 - Essential (primary) hypertension Is this a current diagnosis for this admission?: YesPlan: Blood pressure stable without medications currently. (10) Hypokalemia Is this a current diagnosis for this admission?: YesPlan: Resolved. (11) Multiple excoriations Is this a current diagnosis for this admission?: YesPlan: Continue with local wound care. (12) Decubitus ulcer of buttock, unstageable Qualifiers: Laterality: unspecified laterality Qualified Code(s): L89.300 - Pressure ulcer of unspecified buttock, unstageable Is this a current diagnosis for this admission?: YesPlan: Continue local wound care. (13) UTI (urinary tract infection) Qualifiers: Urinary tract infection type: site unspecified Hematuria presence: with hematuria Qualified Code(s): N39.0 - Urinary tract infection, site not specified Is this a current diagnosis for this admission?: YesPlan: Growing Escherichia coli that was resistant to Levaquin. Continue with Rocephin. (14) Tobacco dependence Is this a current diagnosis for this admission?: Yes (15) Opiate dependence, continuous Is this a current diagnosis for this admission?: YesPlan: The patient is chronically on methadone. - Time Time Spent with patient: 25-34 minutes - Inpatient Certification Medical Necessity: Need for IV Antibiotics
[2016-03-19] MEDS ORDERED: PREDNISONE 20 MG TABLET PO ONE (12:30)
[2016-03-19] MEDS: CEFTRIAXONE 1 GM/D5W RTU 1 GM/50 ML RTUPB IV SCH (12:40)
[2016-03-20] MEDS: LEVALBUTEROL HCL NEB 1.25 MG/3 ML AMPUL NEB SCH ×3 (01:51→13:53)
[2016-03-20] MEDS: IPRATROPIUM BROMIDE 0.02% NEB 0.5 MG/2.5 ML AMPUL NEB SCH ×3 (01:51→13:53)
[2016-03-20] MEDS: METHADONE HCL 10 MG TABLET PO SCH ×3 (03:56→15:00)
[2016-03-20] MEDS: 1/2 NORMAL SALINE 1,000 ML IV PRN (04:00)
[2016-03-20] MEDS: CLINDAMYCIN 600 MG/D5W RTU 50 ML IV SCH ×2 (06:29→14:59)
[2016-03-20 07:18] LABS: HEMATOCRIT 30.5 % (36.0-47.0); HEMOGLOBIN 9.5 g/dL (12.0-15.5); MEAN CORPUSCULAR HEMOGLOBIN 27.6 pg (27.0-33.4); MEAN CORPUSCULAR HGB CONC 31.2 g/dL (32.0-36.0); MEAN CORPUSCULAR VOLUME 89 fl (80-97); RED BLOOD COUNT 3.44 10^6/uL (3.72-5.28); RED CELL DISTRIBUTION WIDTH 16.1 % (11.5-14.0); WHITE BLOOD COUNT 5.7 10^3/uL (4.0-10.5)
[2016-03-20 07:32] LABS: ANION GAP 11 (5-19); BLOOD UREA NITROGEN 18 mg/dL (7-20); CALCIUM 7.7 mg/dL (8.4-10.2); CARBON DIOXIDE 28 mmol/L (22-30); CHLORIDE 98 mmol/L (98-107); CREATININE RESULT 0.93 mg/dL (0.52-1.25); GLUCOSE 85 mg/dL (75-110); POTASSIUM 3.2 mmol/L (3.6-5.0); SODIUM 136.6 mmol/L (137-145)
[2016-03-20 08:27] LABS: BAND NEUTROPHILS % (MANUAL) 1 % (3-5); BASOPHILS % (MANUAL) 0 % (0-2); EOSINOPHILS % (MANUAL) 0 % (0-6); LYMPHOCYTES % (MANUAL) 27 % (13-45); NUCLEATED RED BLOOD CELLS 1 /100 WBC (0); TOTAL CELLS COUNTED 100
[2016-03-20 08:28] LABS: ANISOCYTOSIS 1+; HYPOCHROMASIA SLIGHT; POLYCHROMASIA SLIGHT; TOXIC GRANULATION SLIGHT
[2016-03-20] MEDS: ENOXAPARIN SODIUM INJ 40 MG/0.4 ML DISP.SYRIN SUBCUT SCH (09:02)
[2016-03-20] MEDS: BACITRACIN ZINC OINTMENT 15 GM TP SCH (09:04)
[2016-03-20] MEDS: FAMOTIDINE INJ/PF 20 MG/2 ML SDV IV SCH (09:19)
--- NOTE | 2016-03-20 09:49 | PDOC DISCHARGE SUMMARY ---
General - Admit/Disc Date/PCP Admission Date/Primary Care Provider: 03/16/16 00:50 Discharge Date: 03/20/16 - Discharge Diagnosis (1) Acute and chronic respiratory failure with hypercapnia Is this a current diagnosis for this admission?: YesSummary: Secondary to acute COPD exacerbation. (2) COPD exacerbation Is this a current diagnosis for this admission?: Yes (3) Acute encephalopathy Is this a current diagnosis for this admission?: YesSummary: Most likely secondary to both acute COPD exacerbation and urinary tract infection with Escherichia coli. (4) Depression Is this a current diagnosis for this admission?: Yes (5) Anemia Is this a current diagnosis for this admission?: Yes (6) GERD (gastroesophageal reflux disease) Is this a current diagnosis for this admission?: Yes (7) Hyperlipidemia Is this a current diagnosis for this admission?: Yes (8) Hypernatremia Is this a current diagnosis for this admission?: Yes (9) Hypertension Is this a current diagnosis for this admission?: Yes (10) Hypokalemia Is this a current diagnosis for this admission?: Yes (11) Multiple excoriations Is this a current diagnosis for this admission?: Yes (12) Decubitus ulcer of buttock, unstageable Is this a current diagnosis for this admission?: Yes (13) UTI (urinary tract infection) Is this a current diagnosis for this admission?: YesSummary: With Escherichia coli. (14) Tobacco dependence Is this a current diagnosis for this admission?: Yes (15) Opiate dependence, continuous Is this a current diagnosis for this admission?: YesSummary: On chronic methadone treatment - Additional Information Resuscitation Status: Full Code Discharge Diet: Diabetic Discharge Activity: Activity As Tolerated Home Medications: Albuterol Sulfate [Proair Respiclick] 2 puff IH QIDP PRN 03/16/16 Amitriptyline HCl [Elavil 150 mg Tablet] 150 mg PO QHS 03/16/16 Duloxetine HCl 30 mg PO DAILY 03/16/16 Ergocalciferol (Vitamin D2) [Drisdol 50,000 unit (1.25MG) Capsule] 50,000 unit PO MO@1000 03/16/16 Fesoterodine Fumarate [Toviaz] 8 mg PO QHS 03/16/16 Fluticasone Propionate [Flonase Nasal Willows 50 Mcg/Willows 16 gm] 1 spray NASL BIDP PRN 03/16/16 Lisinopril [Prinivil] 20 mg PO DAILY 03/16/16 Nystatin [Mycostatin Cream 15 gm] 1 applic TOP QID 03/16/16 Omeprazole 40 mg PO DAILY 03/16/16 Simvastatin [Zocor 40 mg Tablet] 40 mg PO DAILY 03/16/16 Cefuroxime Axetil [Ceftin 500 mg Tablet] 1 tab PO BID #14 tablet 03/20/16 Insulin Lispro [Humalog Insulin (Lispro) 100 unit/mL] 0 - 12 unit SUBCUT Q6HP PRN unit 03/20/16 Methadone HCl [Dolophine 10 mg Tablet] 5 mg PO QID #120 tablet 03/20/16 Prednisone [Deltasone 20 mg Tablet] 10 mg PO DAILY #39 tablet 03/20/16 Tramadol HCl [Tramadol HCl ER] 300 mg PO DAILY #30 tab.er.24h 03/20/16 History of Present Illness History of Present Illness: MARTIR CALIX is a 60 year old female who has a history of COPD who presented with acute encephalopathy as well as an acute COPD exacerbation. The patient was unable to give any history because of her acute encephalopathy however she was noted to have a urinary tract infection. Hospital Course Hospital Course: 60-year-old female who has a history of COPD who presented with acute encephalopathy. The patient was noted to have a urinary tract infection along with an acute COPD exacerbation. The patient's urinary tract infection was treated with IV antibiotics and she eventually grew out Escherichia coli. She will be sent home with a 7 additional days Ceftin by mouth for treatment of her urinary tract infection. Patient also was noted have acute hypoxic respiratory failure secondary to an acute COPD exacerbation. Patient did require BiPAP at one time during the hospitalization. The patient was treated with IV steroids and had improvement summary date of discharge no longer had any wheezing. The patient was had significant weakness and is being discharged to [facility] for PT and OT for strengthening. The patient also has had problems with depression and she's been restarted on her outpatient regiment. Physical Exam Vital Signs: Temp Pulse Resp BP Pulse Ox 98.8 F 104 H 18 101/64 96 03/20/16 04:16 03/20/16 08:08 03/20/16 08:08 03/20/16 04:16 03/20/16 08:08 Intake & Output 03/19/16 03/20/16 03/21/16 06:59 06:59 06:59 Intake Total 3333 1940 Output Total 1999 4100 Balance 1333 -2160 Weight 107.5 kg 108.5 kg General appearance: PRESENT: no acute distress Eye exam: PRESENT: conjunctiva pink Mouth exam: PRESENT: moist, tongue midline Neck exam: ABSENT: carotid bruit, JVD, lymphadenopathy, thyromegaly Respiratory exam: PRESENT: clear to auscultation marko. ABSENT: rales, rhonchi, wheezes Cardiovascular exam: PRESENT: RRR. ABSENT: diastolic murmur, rubs, systolic murmur GI/Abdominal exam: PRESENT: normal bowel sounds, soft. ABSENT: distended, guarding, mass, organolmegaly, rebound, tenderness Extremities exam: ABSENT: calf tenderness, clubbing, pedal edema Neurological exam: PRESENT: alert, awake, oriented to person, oriented to place , oriented to time, oriented to situation Psychiatric exam: PRESENT: appropriate affect Skin exam: PRESENT: dry, intact, warm. ABSENT: cyanosis, rash Results Laboratory Results: 03/20/16 06:21 03/20/16 06:21 03/20/16 03/20/16 06:21 06:21 WBC 5.7 RBC 3.44 L Hgb 9.5 L Hct 30.5 L MCV 89 MCH 27.6 MCHC 31.2 L RDW 16.1 H Plt Count 225 Seg Neutrophils % Not Reportable Lymphocytes % Not Reportable Monocytes % Not Reportable Eosinophils % Not Reportable Basophils % Not Reportable Absolute Neutrophils Not Reportable Absolute Lymphocytes Not Reportable Absolute Monocytes Not Reportable Absolute Eosinophils Not Reportable Absolute Basophils Not Reportable Sodium 136.6 L Potassium 3.2 L Chloride 98 Carbon Dioxide 28 Anion Gap 11 BUN 18 Creatinine 0.93 Est GFR ( Amer) > 60 Est GFR (Non-Af Amer) > 60 Glucose 85 Calcium 7.7 L 03/16/16 06:04 Troponin I < 0.012 Impressions: Carotid Doppler Study 03/16/16 00:00 IMPRESSION: NO HEMODYNAMICALLY SIGNIFICANT STENOSIS. Chest X-Ray 03/18/16 00:00 IMPRESSION: Minimal right basilar densities as noted above. Remaining lung gonzalez are clear. Other findings as noted above Head MRI 03/18/16 00:00 IMPRESSION: No evidence of acute infarct. Head CT 03/18/16 06:00 IMPRESSION: CHRONIC CHANGES OF ATROPHY AND MICROVASCULAR ISCHEMIA. NO ACUTE PROCESS. Thyroid Ultrasound 03/19/16 00:00 IMPRESSION: No suspicious findings. Qualifiers PATEINT BEING DISCHARGED WITH ANY OF THE FOLLOWING DIAGNOSIS?: No Plan Discharge Plan: she is discharged to [facility] for physical therapy and occupational therapy. Time Spent: Greater than 30 Minutes
[2016-03-20] MEDS ORDERED: PREDNISONE 20 MG TABLET PO SCH (10:00)
[2016-03-20] MEDS: CEFTRIAXONE 1 GM/D5W RTU 1 GM/50 ML RTUPB IV SCH (12:54)
[2016-03-20 15:31] VITALS: BP 114/67
== END 2016-03-20 17:15 | DRG 190 ==
LOC: ER 18:53 → UNDOADMIN 22:39 → EH 22:39 → ICU 03-16 04:06 → 4W 03-16 17:03 → 3W 03-18 20:26
PROVIDERS: ADMIT Family Medicine; ATTEND Family Medicine
DX: J44.1 Chronic obstructive pulmonary disease with (acute) exacerbation (principal); J96.22 Acute and chronic respiratory failure with hypercapnia; G93.40 Encephalopathy, unspecified; N39.0 Urinary tract infection, site not specified; E87.0 Hyperosmolality and hypernatremia; F11.20 Opioid dependence, uncomplicated; Z68.41 Body mass index [BMI] 40.0-44.9, adult; E78.5 Hyperlipidemia, unspecified; I10 Essential (primary) hypertension; K21.9 Gastro-esophageal reflux disease without esophagitis; L89.102 Pressure ulcer of unspecified part of back, stage 2; L89.302 Pressure ulcer of unspecified buttock, stage 2; D64.9 Anemia, unspecified; E86.0 Dehydration; E87.6 Hypokalemia; J45.909 Unspecified asthma, uncomplicated; B96.20 Unspecified Escherichia coli [E. coli] as the cause of diseases classified elsewhere; T14.8 Other injury of unspecified body region; F17.210 Nicotine dependence, cigarettes, uncomplicated; F32.9 Major depressive disorder, single episode, unspecified; E66.9 Obesity, unspecified
CPT/HCPCS: 36415; 70450; 70551; 71010; 76536; 80048; 80053; 81001; 82550; 82553; 82803; 82962; 83605; 83735; 84439; 84443; 84484; 85025; 85027; 87040; 87045; 87086; 87088; 87186; 87205; 87493; 87804; 93005; 93010; 93306; 93880; 94660; 96365; 96367; 99291; J0696; J1650; J1940; J1956; J2270; J2543; J2930; J3370; J3475; J3480; J3490; J7030; J7060; J7512; J7620; S0028

== ENCOUNTER 2016-04-08 21:33 | Inpatient (IN) | payer MEDICARE ==
[2016-04-08] MEDS ORDERED: NORMAL SALINE 1000 ML 1,000 ML IV ONE (21:40)
--- NOTE | 2016-04-08 22:33 | ER Document Report ---
ED General - General Stated Complaint: BLOOD PRESSURE PROBLEMS Time seen by provider: 22:33 Mode of Arrival: Stretcher Information source: Outside Facility Records TRAVEL OUTSIDE OF THE [place] IN LAST 30 DAYS: No - HPI Patient complains to provider of: hypotension Onset: Just prior to arrival Onset/Duration: Sudden Notes: Patient is a 60-year-old female sent from local [facility] for low blood pressure, patient has a history of dementia and is difficult to obtain any additional information from her, however she is tachycardic and hypotensive when EMS arrived - Related Data Allergies/Adverse Reactions: No Known Allergies Allergy (Verified 03/16/16 23:43) Past Medical History - General Information source: Outside Facility Records - Social History Smoking Status: Unknown if Ever Smoked Family History: Reviewed & Not Pertinent - Past Medical History Cardiac Medical History: Reports: Hx Hypercholesterolemia, Hx Hypertension Denies: Hx Heart Attack Pulmonary Medical History: Reports: Hx Asthma, Hx COPD GI Medical History: Reports: Hx Gastroesophageal Reflux Disease Musculoskeltal Medical History: Reports Hx Arthritis Skin Medical History: Reports Hx Cellulitis Psychiatric Medical History: Reports: Hx Depression - Not currently depressed Past Surgical History: Reports: Hx Bowel Surgery, Hx Hysterectomy, Hx Tonsillectomy - Immunizations Hx Pneumococcal Vaccination: 03/03/12 Review of Systems - Review of Systems -: Yes ROS unobtainable due to patient's medical condition Physical Exam - Vital signs Vitals: Resp BP 14 113/72 04/08/16 21:41 04/08/16 21:41 Interpretation: Tachycardic - General General appearance: Other - Somnolent, easily arousable In distress: None - HEENT Head: Normocephalic, Atraumatic Eyes: Normal Conjunctiva: Normal Extraocular movements intact: Yes Eyelashes: Normal Pupils: PERRL Mucous membranes: Dry Pharynx: Normal Neck: Normal - Respiratory Respiratory status: No respiratory distress Chest status: Nontender Breath sounds: Normal Chest palpation: Normal - Cardiovascular Rhythm: Regular, Tachycardia - Abdominal Inspection: Normal Distension: Distended Bowel sounds: Normal Tenderness: Other - Mild diffuse tenderness - Back Back: Normal - Extremities General upper extremity: Normal inspection General lower extremity: Normal inspection - Neurological Cognition: Confused Orientation: Disoriented to events [place] Coma Scale Eye Opening: To Voice [place] Coma Scale Verbal: Confused [place] Coma Scale Motor: Withdraws to Pain [place] Coma Scale Total: 11 - Psychological Associated symptoms: Normal affect - Skin Skin Temperature: Warm Skin Moisture: Dry Skin Color: Pale Course - Re-evaluation Re-evalutation: 04/09/16 05:35 Patient resting comfortably, her blood pressure is significantly improved after IV fluids, laboratory evaluation is fairly unremarkable except for a urinary tract infection, there is no leukocytosis, no metabolic derangement 04/09/16 06:29 Patient remains tachycardic, a dose of pain medication was given to her as I believe this may be related to opiate withdrawal since she is opiate dependent, this did not change her heart rate at all, I evaluated patient at bedside, she was a awake and oriented to self, requesting that I turn of the volume of the TV so she could hear better, she remains tachycardic although her blood pressure has improved, I am unsure why she is still tachycardic, I believe it is likely related to an infectious process 04/09/16 06:38 Patient was discussed with Dr. Brown, hospitalist who agrees to admit for further evaluation and treatment - Vital Signs Vital signs: Temp Pulse Resp BP Pulse Ox 98.2 F 16 111/73 98 04/09/16 05:31 04/09/16 05:01 04/09/16 05:01 04/09/16 05:01 - Laboratory Result Diagrams: 04/08/16 23:00 04/09/16 04:17 Laboratory results interpreted by me: 04/08/16 04/08/16 04/09/16 23:00 23:00 03:58 RBC 2.97 L Hgb 8.3 L Hct 26.1 L MCHC 31.8 L RDW 16.9 H BUN 28 H Creatinine 1.98 H Est GFR ( Amer) 31 L Est GFR (Non-Af Amer) 26 L Calcium AST 12 L Total Protein 5.8 L Albumin 3.0 L Ur Leukocyte Esterase LARGE H 04/09/16 04:17 RBC Hgb Hct MCHC RDW BUN 28 H Creatinine 1.57 H Est GFR ( Amer) 41 L Est GFR (Non-Af Amer) 34 L Calcium 8.0 L AST Total Protein Albumin Ur Leukocyte Esterase - Diagnostic Test Radiology reviewed: Image reviewed, Reports reviewed - EKG Interpretation by Me EKG shows normal: Sinus rhythm Rate: Tachycardia Discharge - Discharge Clinical Impression: SIRS (systemic inflammatory response syndrome), Tachycardia Urinary tract infection Qualifiers: Urinary tract infection type: site unspecified Hematuria presence: without hematuria Qualified Code(s): N39.0 - Urinary tract infection, site not specified Condition: Stable Disposition: HOME, SELF-CARE Admitting Provider: Hospitalist Unit Admitted: Telemetry Additional Instructions: Follow up with your primary care provider in one to 2 days. Return to the emergency room immediately if symptoms worsen or any additional concerns. Prescriptions: Sulfamethoxazole/Trimethoprim [Bactrim Ds Tablet] 1 each PO BID #20 tablet Referrals: STEPHANI ODEN MD [Primary Care Provider] - Follow up as needed
[2016-04-08 23:55] LABS: ABSOLUTE BASOPHILS # (AUTO) 0.1 10^3/uL (0.0-0.2); ABSOLUTE EOSINOPHILS # (AUTO) 0.4 10^3/uL (0.0-0.6); ABSOLUTE LYMPHOCYTES (AUTO) 1.5 10^3/uL (0.5-4.7); ABSOLUTE MONOCYTES (AUTO) 0.7 10^3/uL (0.1-1.4); ABSOLUTE NEUT (AUTO) 5.7 10^3/uL (1.7-8.2); BASOPHILS % (AUTO) 0.9 % (0-2); HEMATOCRIT 26.1 % (36.0-47.0); HEMOGLOBIN 8.3 g/dL (12.0-15.5); HGB HCT DIFFERENCE -1.2; LYMPHOCYTES % (AUTO) 17.3 % (13-45); MEAN CORPUSCULAR HEMOGLOBIN 27.9 pg (27.0-33.4); MEAN CORPUSCULAR HGB CONC 31.8 g/dL (32.0-36.0); MEAN CORPUSCULAR VOLUME 88 fl (80-97); MONOCYTES % (AUTO) 8.4 % (3-13); RED BLOOD COUNT 2.97 10^6/uL (3.72-5.28); RED CELL DISTRIBUTION WIDTH 16.9 % (11.5-14.0); SEGMENTED NEUTROPHILS % (AUTO) 68.4 % (42-78); VENOUS BLOOD BASE EXCESS 3.1 mmol/L; VENOUS BLOOD HCO3 29.8 mmol/L (20-32); VENOUS BLOOD PCO2 56.7 mmHg (35-63); VENOUS BLOOD PH 7.34 (7.30-7.42); WHITE BLOOD COUNT 8.4 10^3/uL (4.0-10.5)
[2016-04-09] LABS: PROTHROMBIN TIME 14.8 SEC (11.4-15.4)
[2016-04-09 00:15] LABS: ALANINE AMINOTRANSFERASE 23 U/L (9-52); ALKALINE PHOSPHATASE 96 U/L (38-126); ANION GAP 12 (5-19); ASPARTATE AMINO TRANSFERASE 12 U/L (14-36); BILIRUBIN,TOTAL 0.5 mg/dL (0.2-1.3); BLOOD UREA NITROGEN 28 mg/dL (7-20); CALCIUM 8.5 mg/dL (8.4-10.2); CARBON DIOXIDE 28 mmol/L (22-30); CHLORIDE 102 mmol/L (98-107); CREATININE RESULT 1.98 mg/dL (0.52-1.25); GLUCOSE 96 mg/dL (75-110); POTASSIUM 4.3 mmol/L (3.6-5.0); SODIUM 141.7 mmol/L (137-145); TOTAL PROTEIN 5.8 g/dL (6.3-8.2)
[2016-04-09] MEDS: NORMAL SALINE 1000 ML 1,000 ML IV PRN ×6 (02:54→09:18)
[2016-04-09 04:33] LABS: APPEARANCE,URINE SLIGHTLY-CLOUDY; BILIRUBIN,URINE NEGATIVE (NEGATIVE); GLUCOSE, URINE NEGATIVE (NEGATIVE); KETONES,URINE NEGATIVE (NEGATIVE); LEUKOCYTE ESTERASE,URINE LARGE (NEGATIVE); NITRITE,URINE NEGATIVE (NEGATIVE); PROTEIN,URINE NEGATIVE (NEGATIVE); URINE SPECIFIC GRAVITY 1.013; UROBILINOGEN,URINE NEGATIVE mg/dL (<2.0)
[2016-04-09] MEDS ORDERED: SULFAMETHOXAZOLE/TRIMETHOPRIM 800-160 MG TABLET PO ONE (04:40)
[2016-04-09 04:43] LABS: ANION GAP 10 (5-19); BLOOD UREA NITROGEN 28 mg/dL (7-20); CARBON DIOXIDE 27 mmol/L (22-30); CHLORIDE 105 mmol/L (98-107); CREATININE RESULT 1.57 mg/dL (0.52-1.25); GLUCOSE 92 mg/dL (75-110); POTASSIUM 4.3 mmol/L (3.6-5.0); SODIUM 141.7 mmol/L (137-145)
[2016-04-09] MEDS ORDERED: FENTANYL CITRATE INJ/PF 100 MCG/2 ML AMPUL IV ONE (05:52)
[2016-04-09] MEDS ORDERED: FENTANYL CITRATE INJ/PF 100 MCG/2 ML AMPUL ONE (05:55)
--- NOTE | 2016-04-09 08:08 | EKG REPORT ---
SEVERITY:- ABNORMAL ECG - SINUS TACHYCARDIA FIRST DEGREE AV BLOCK NONSPECIFIC INTRAVENTRICULAR CONDUCTION DELAY NONSPECIFIC ST-T CHANGES, DIFFUSE : Confirmed by: Maximilian Ornelas MD 09-Apr-2016 08:08:07
[2016-04-09] MEDS ORDERED: ONDANSETRON HCL INJ/PF 4 MG/2 ML SDV IV PRN (08:16)
[2016-04-09] MEDS ORDERED: NORMAL SALINE 1000 ML 1,000 ML IV PRN (08:16)
[2016-04-09] MEDS ORDERED: ACETAMINOPHEN 325 MG TABLET PO PRN (08:16)
--- NOTE | 2016-04-09 08:42 | PDOC H&P ---
History of Present Illness Admission Date/PCP: 04/09/16 06:47 STEPHANI ODEN Patient complains of: Hypotension History of Present Illness: MARTIR CALIX is a 60 year old female, with underlying dementia, hypertension , chronic back pain on methadone apparently sent to the hospital for low blood pressure. Patient resides in a local custodial and noted to have a low blood pressure. There was no reported discomfort, respiratory distress or coughing, nausea or vomiting, diarrhea. The patient was brought to the emergency room. The lowest blood pressure was 84 systolic and 52 diastolic. Saline boluses were given and her blood pressure improved. She remained tachycardic however. Urinalysis suggestive of urinary tract infection. No temperature spikes or elevated WBC noted. Patient was given intravenous antibiotic, likewise given fentanyl for pain and was referred for admission. Patient with underlying dementia and unable to provide information. Very unreliable. Information obtained from old records and from the transfer form. Past Medical History Past Medical History: Medication reconciliation pending verification from the patient's pharmacist. Cardiac Medical History: Reports: Hyperlipidema, Hypertension Denies: Myocardial Infarction Pulmonary Medical History: Reports: Asthma, Chronic Obstructive Pulmonary Disease (COPD) GI Medical History: Reports: Gastroesophageal Reflux Disease Musculoskeltal Medical History: Reports: Arthritis, Other - Chronic back pain Psychiatric Medical History: Reports: Depression - Not currently depressed, Other - Opiate dependency Hematology: Reports: Anemia, Other - B12 deficiency Past Surgical History Past Surgical History: Reports: Hysterectomy, Tonsillectomy Social History Information Source: Transfer Record, [facility] Records Smoking Status: Unknown if Ever Smoked Frequency of Alcohol Use: Occasional Hx Recreational Drug Use: No Drugs: None Hx Prescription Drug Abuse: No - Advance Directive Resuscitation Status: Do Not Resuscitate Family History Family History: Other - Unobtainable from the patient Parental Family History Reviewed: Yes Children Family History Reviewed: Unknown Sibling(s) Family History Reviewed.: Unknown Medication/Allergy Home Medications: Albuterol Sulfate [Proair Respiclick] 2 puff IH QIDP PRN 03/16/16 Amitriptyline HCl [Elavil 150 mg Tablet] 150 mg PO QHS 03/16/16 Duloxetine HCl 30 mg PO DAILY 03/16/16 Ergocalciferol (Vitamin D2) [Drisdol 50,000 unit (1.25MG) Capsule] 50,000 unit PO MO@1000 03/16/16 Fesoterodine Fumarate [Toviaz] 8 mg PO QHS 03/16/16 Fluticasone Propionate [Flonase Nasal [place] 50 Mcg/[place] 16 gm] 1 spray NASL BIDP PRN 03/16/16 Lisinopril [Prinivil] 20 mg PO DAILY 03/16/16 Nystatin [Mycostatin Cream 15 gm] 1 applic TOP QID 03/16/16 Omeprazole 40 mg PO DAILY 03/16/16 Simvastatin [Zocor 40 mg Tablet] 40 mg PO DAILY 03/16/16 Cefuroxime Axetil [Ceftin 500 mg Tablet] 1 tab PO BID #14 tablet 03/20/16 Insulin Lispro [Humalog Insulin (Lispro) 100 unit/mL] 0 - 12 unit SUBCUT Q6HP PRN unit 03/20/16 Methadone HCl [Dolophine 10 mg Tablet] 5 mg PO QID #120 tablet 03/20/16 Prednisone [Deltasone 20 mg Tablet] 10 mg PO DAILY #39 tablet 03/20/16 Tramadol HCl [Tramadol HCl ER] 300 mg PO DAILY #30 tab.er.24h 03/20/16 Sulfamethoxazole/Trimethoprim [Bactrim Ds Tablet] 1 each PO BID #20 tablet 04/09 Allergies/Adverse Reactions: No Known Allergies Allergy (Verified 03/16/16 23:43) Review of Systems ROS unobtainable: Due to mental status - Reported out of facility DO NOT RESUSCITATE, has decubitus ulcers on the lumbosacral area and right thigh. Physical Exam Vital Signs: Temp Pulse Resp BP Pulse Ox 98.3 F 20 143/90 H 99 04/09/16 06:48 04/09/16 07:02 04/09/16 07:02 04/09/16 07:02 General appearance: PRESENT: no acute distress, morbidly obese Head exam: PRESENT: atraumatic, normocephalic Eye exam: PRESENT: conjunctiva pink, EOMI, PERRLA - Sluggish. ABSENT: scleral icterus Ear exam: PRESENT: normal external ear exam. ABSENT: drainage Mouth exam: PRESENT: dry mucosa, neck supple, tongue midline Neck exam: ABSENT: carotid bruit, JVD, lymphadenopathy, thyromegaly Respiratory exam: PRESENT: clear to auscultation marko, other - Poor effort. ABSENT: rales, rhonchi, wheezes Cardiovascular exam: PRESENT: RRR, +S1, +S2, tachycardia. ABSENT: diastolic murmur, gallop, rubs, systolic murmur Pulses: PRESENT: +1 pedal pulses bilateral Vascular exam: PRESENT: normal capillary refill GI/Abdominal exam: PRESENT: hypoactive bowel sounds, soft, tenderness - Minimal diffusely. ABSENT: distended, guarding, mass, organolmegaly, rebound Rectal exam: PRESENT: deferred Extremities exam: PRESENT: full ROM. ABSENT: calf tenderness, clubbing, pedal edema Neurological exam: PRESENT: alert, awake, other - Unable to follow commands at this time Psychiatric exam: PRESENT: appropriate affect. ABSENT: agitated Focused psych exam: ABSENT: restlessness Skin exam: PRESENT: dry, rash - Chronic lower extremity hyperpigmentation, lichenification bilaterally, warm. ABSENT: cyanosis Results Impressions: Chest X-Ray 04/08/16 21:40 IMPRESSION: Small left basilar atelectasis, scar, and/or effusion. Assessment & Plan - Diagnosis (1) Hypotension Qualifiers: Hypotension type: unspecified hypotension type Qualified Code(s): I95.9 - Hypotension, unspecified Is this a current diagnosis for this admission?: Yes (2) Acute renal failure Qualifiers: Acute renal failure type: unspecified Qualified Code(s): N17.9 - Acute kidney failure, unspecified Is this a current diagnosis for this admission?: Yes (3) Dehydration Is this a current diagnosis for this admission?: Yes (4) UTI (urinary tract infection) Qualifiers: Urinary tract infection type: site unspecified Hematuria presence: with hematuria Qualified Code(s): N39.0 - Urinary tract infection, site not specified Is this a current diagnosis for this admission?: Yes (5) Decubitus ulcer limited to breakdown of skin (stage 2) Qualifiers: Pressure ulcer location: unspecified location Qualified Code(s): L89.92 - Pressure ulcer of unspecified site, stage 2 Is this a current diagnosis for this admission?: Yes (6) Depression Qualifiers: Depression Type: unspecified Qualified Code(s): F32.9 - Major depressive disorder, single episode, unspecified Is this a current diagnosis for this admission?: Yes (7) GERD (gastroesophageal reflux disease) Qualifiers: Esophagitis presence: without esophagitis Qualified Code(s): K21.9 - Gastro-esophageal reflux disease without esophagitis Is this a current diagnosis for this admission?: Yes (8) Hyperlipidemia Qualifiers: Hyperlipidemia type: unspecified Qualified Code(s): E78.5 - Hyperlipidemia, unspecified Is this a current diagnosis for this admission?: Yes (9) Hypertension Qualifiers: Hypertension type: essential hypertension Qualified Code(s): I10 - Essential (primary) hypertension Is this a current diagnosis for this admission?: Yes (10) Opiate dependence, continuous Is this a current diagnosis for this admission?: Yes (11) Dementia Qualifiers: Dementia type: unspecified type Dementia behavioral disturbance: without behavioral disturbance Qualified Code(s): F03.90 - Unspecified dementia without behavioral disturbance Is this a current diagnosis for this admission?: Yes (12) COPD (chronic obstructive pulmonary disease) Qualifiers: COPD type: unspecified COPD Qualified Code(s): J44.9 - Chronic obstructive pulmonary disease, unspecified Is this a current diagnosis for this admission?: Yes (13) Anemia of chronic disease Is this a current diagnosis for this admission?: Yes (14) Chronic venous stasis dermatitis Qualifiers: Laterality: unspecified laterality Qualified Code(s): I83.10 - Varicose veins of unspecified lower extremity with inflammation Is this a current diagnosis for this admission?: Yes - Time Time Spent: 50 to 70 Minutes - Inpatient Certification Based on my medical assessment, after consideration of the patient's comorbidities, presenting symptoms, or acuity I expect that the services needed warrant INPATIENT care.: Yes I certify that my determination is in accordance with my understanding of Medicare's requirements for reasonable and necessary INPATIENT services [42 CFR 412.3e].: Yes Medical Necessity: Significant Comorbidiites Make Outpatient Treatment Too Risky , Need Close Monitoring Due to Risk of Patient Decompensation, Need For IV Fluids, Need for IV Antibiotics Post Hospital Care: D/C Drafter Landscape Documentation - Plan Summary Plan Summary: The patient will be admitted to [facility]. The patient has an out of facility DO NOT RESUSCITATE form. I will hydrate the patient with normal saline, start intravenous Invanz, culture her urine and blood. I will hold antihypertensive medications at this time. I will continue her methadone at a lower dose. We will monitor creatinine. We'll check TSH and free T4. We will monitor electrolytes. I will also check a KUB for impaction. We will have wound care for her decubitus ulcers. DVT prophylaxis with Lovenox would be placed. Further testing depends on the initial evaluation and response to treatment as outlined above.
[2016-04-09 09:43] LABS: THYROID STIMULATING HORMONE 3.09 uIU/mL (0.47-4.68)
[2016-04-09] MEDS ORDERED: ERTAPENEM SODIUM INJ 1 GM VIAL IV SCH (10:00)
[2016-04-09] MEDS: DOCUSATE SODIUM 100 MG CAPSULE PO SCH ×2 (10:28→17:27)
[2016-04-09] MEDS: DULOXETINE HCL 30 MG CAPSULE.DR PO SCH (10:28)
[2016-04-09] MEDS ORDERED: ENOXAPARIN SODIUM INJ 40 MG/0.4 ML DISP.SYRIN SUBCUT ONE (11:00)
[2016-04-09] MEDS: ERTAPENEM SODIUM 1 GM in NORMAL SALINE 50 ML IV SCH (12:13)
[2016-04-09] MEDS ORDERED: INFLUENZA ADLT QUAD (36MOS+) 2016-17 VAC 0.5 ML SYR IM PRN (15:15)
[2016-04-09] MEDS: METHADONE HCL 10 MG TABLET PO SCH ×2 (16:17→22:46)
[2016-04-10] MEDS: METHADONE HCL 10 MG TABLET PO SCH ×3 (06:17→21:07)
[2016-04-10] MEDS: LANSOPRAZOLE 30 MG TAB.RAP.DR PO SCH (06:18)
[2016-04-10 06:37] LABS: ANION GAP 7 (5-19); BLOOD UREA NITROGEN 15 mg/dL (7-20); CALCIUM 7.9 mg/dL (8.4-10.2); CARBON DIOXIDE 25 mmol/L (22-30); CHLORIDE 110 mmol/L (98-107); CREATININE RESULT 0.85 mg/dL (0.52-1.25); GLUCOSE 65 mg/dL (75-110); MAGNESIUM 1.4 mg/dL (1.6-2.3); PHOSPHORUS 3.5 mg/dL (2.5-4.5); POTASSIUM 4.3 mmol/L (3.6-5.0); SODIUM 141.8 mmol/L (137-145)
[2016-04-10 08:44] LABS: HEMATOCRIT 25.2 % (36.0-47.0); HGB HCT DIFFERENCE -1.5; MEAN CORPUSCULAR HEMOGLOBIN 27.9 pg (27.0-33.4); MEAN CORPUSCULAR HGB CONC 31.5 g/dL (32.0-36.0); MEAN CORPUSCULAR VOLUME 89 fl (80-97); RED BLOOD COUNT 2.84 10^6/uL (3.72-5.28); RED CELL DISTRIBUTION WIDTH 16.6 % (11.5-14.0); WHITE BLOOD COUNT 5.1 10^3/uL (4.0-10.5)
[2016-04-10 08:47] LABS: HEMOGLOBIN 7.9 g/dL (12.0-15.5)
[2016-04-10] MEDS: DULOXETINE HCL 30 MG CAPSULE.DR PO SCH (09:10)
[2016-04-10] MEDS: DOCUSATE SODIUM 100 MG CAPSULE PO SCH ×2 (09:10→17:02)
[2016-04-10] MEDS: ENOXAPARIN SODIUM INJ 40 MG/0.4 ML DISP.SYRIN SUBCUT SCH (09:11)
[2016-04-10 10:25] LABS: HEMATOCRIT 24.7 % (36.0-47.0); MEAN CORPUSCULAR HEMOGLOBIN 28.2 pg (27.0-33.4); MEAN CORPUSCULAR HGB CONC 31.9 g/dL (32.0-36.0); MEAN CORPUSCULAR VOLUME 88 fl (80-97); WHITE BLOOD COUNT 4.5 10^3/uL (4.0-10.5)
[2016-04-10 10:29] LABS: HEMOGLOBIN 7.9 g/dL (12.0-15.5)
[2016-04-10] MEDS: ERTAPENEM SODIUM 1 GM in NORMAL SALINE 50 ML IV SCH (11:17)
[2016-04-10] MEDS ORDERED: NORMAL SALINE 1000 ML 1,000 ML IV PRN (14:13)
--- NOTE | 2016-04-10 14:18 | PDOC PROGRESS REPORT ---
Subjective Progress Note for:: 04/10/16 Subjective:: Patient is more awake and alert. Has baseline underlying confusion however. Patient tolerating oral intake. No reported temperature spikes, nausea or vomiting, respiratory distress. Patient denies any diarrhea. Physical Exam Vital Signs: Temp Pulse Resp BP Pulse Ox 97.5 F 117 H 17 113/63 89 L 04/10/16 11:29 04/10/16 11:29 04/10/16 07:12 04/10/16 11:29 04/10/16 11:29 Intake & Output 04/09/16 04/10/16 04/11/16 06:59 06:59 06:59 Intake Total 1809 Output Total 2475 Balance -666 Weight 97.5 kg General appearance: PRESENT: no acute distress, cooperative, obese Head exam: PRESENT: normocephalic Eye exam: PRESENT: conjunctiva pale Mouth exam: PRESENT: moist, neck supple Neck exam: ABSENT: JVD Respiratory exam: PRESENT: clear to auscultation marko. ABSENT: rhonchi, wheezes Cardiovascular exam: PRESENT: RRR. ABSENT: gallop GI/Abdominal exam: PRESENT: hypoactive bowel sounds, soft. ABSENT: distended, tenderness Extremities exam: ABSENT: pedal edema Neurological exam: PRESENT: alert, awake Psychiatric exam: ABSENT: agitated Focused psych exam: ABSENT: restlessness Skin exam: PRESENT: dry, warm. ABSENT: cyanosis Results Laboratory Results: 04/10/16 09:43 04/10/16 05:09 04/10/16 04/10/16 04/10/16 05:09 08:32 09:43 WBC 5.1 4.5 RBC 2.84 L 2.80 L Hgb 7.9 L 7.9 L Hct 25.2 L 24.7 L MCV 89 88 MCH 27.9 28.2 MCHC 31.5 L 31.9 L RDW 16.6 H 17.0 H Plt Count 252 242 Sodium 141.8 Potassium 4.3 Chloride 110 H Carbon Dioxide 25 Anion Gap 7 BUN 15 Creatinine 0.85 Est GFR ( Amer) > 60 Est GFR (Non-Af Amer) > 60 Glucose 65 L Calcium 7.9 L Phosphorus 3.5 Magnesium 1.4 L Blood Type Antibody Screen 04/10/16 12:23 WBC RBC Hgb Hct MCV MCH MCHC RDW Plt Count Sodium Potassium Chloride Carbon Dioxide Anion Gap BUN Creatinine Est GFR ( Amer) Est GFR (Non-Af Amer) Glucose Calcium Phosphorus Magnesium Blood Type O POSITIVE Antibody Screen NEGATIVE Impressions: Chest X-Ray 04/08/16 21:40 IMPRESSION: Small left basilar atelectasis, scar, and/or effusion. KUB X-Ray 04/09/16 00:00 IMPRESSION: NO RADIOGRAPHIC EVIDENCE FOR ACUTE ABDOMINAL DISEASE. Assessment & Plan - Diagnosis (1) Hypotension Qualifiers: Hypotension type: unspecified hypotension type Qualified Code(s): I95.9 - Hypotension, unspecified Is this a current diagnosis for this admission?: Yes (2) Acute renal failure Qualifiers: Acute renal failure type: unspecified Qualified Code(s): N17.9 - Acute kidney failure, unspecified Is this a current diagnosis for this admission?: Yes (3) Dehydration Is this a current diagnosis for this admission?: Yes (4) UTI (urinary tract infection) Qualifiers: Urinary tract infection type: site unspecified Hematuria presence: with hematuria Qualified Code(s): N39.0 - Urinary tract infection, site not specified Is this a current diagnosis for this admission?: Yes (5) Decubitus ulcer limited to breakdown of skin (stage 2) Qualifiers: Pressure ulcer location: unspecified location Qualified Code(s): L89.92 - Pressure ulcer of unspecified site, stage 2 Is this a current diagnosis for this admission?: Yes (6) Depression Qualifiers: Depression Type: unspecified Qualified Code(s): F32.9 - Major depressive disorder, single episode, unspecified Is this a current diagnosis for this admission?: Yes (7) GERD (gastroesophageal reflux disease) Qualifiers: Esophagitis presence: without esophagitis Qualified Code(s): K21.9 - Gastro-esophageal reflux disease without esophagitis Is this a current diagnosis for this admission?: Yes (8) Hyperlipidemia Qualifiers: Hyperlipidemia type: unspecified Qualified Code(s): E78.5 - Hyperlipidemia, unspecified Is this a current diagnosis for this admission?: Yes (9) Hypertension Qualifiers: Hypertension type: essential hypertension Qualified Code(s): I10 - Essential (primary) hypertension Is this a current diagnosis for this admission?: Yes (10) Opiate dependence, continuous Is this a current diagnosis for this admission?: Yes (11) Dementia Qualifiers: Dementia type: unspecified type Dementia behavioral disturbance: without behavioral disturbance Qualified Code(s): F03.90 - Unspecified dementia without behavioral disturbance Is this a current diagnosis for this admission?: Yes (12) COPD (chronic obstructive pulmonary disease) Qualifiers: COPD type: unspecified COPD Qualified Code(s): J44.9 - Chronic obstructive pulmonary disease, unspecified Is this a current diagnosis for this admission?: Yes (13) Anemia of chronic disease Is this a current diagnosis for this admission?: Yes (14) Chronic venous stasis dermatitis Qualifiers: Laterality: unspecified laterality Qualified Code(s): I83.10 - Varicose veins of unspecified lower extremity with inflammation Is this a current diagnosis for this admission?: Yes - Time Time Spent with patient: 25-34 minutes - Plan Summary Plan Summary: Begin diet. Continue antibiotics. Decrease intravenous fluids however. We will correct magnesium, transfuse 1 unit of packed RBC, recheck hemoglobin and hematocrit in the morning. Continue supportive care. Out of bed with PT.
[2016-04-10] MEDS ORDERED: MAGNESIUM SULFATE/D5W 1 GM/100 ML RTUPB IV SCH (16:00)
[2016-04-10 18:51] LABS: HEMATOCRIT 27.2 % (36.0-47.0); HGB HCT DIFFERENCE -0.2; MEAN CORPUSCULAR HGB CONC 33.1 g/dL (32.0-36.0); MEAN CORPUSCULAR VOLUME 88 fl (80-97); RED BLOOD COUNT 3.11 10^6/uL (3.72-5.28); WHITE BLOOD COUNT 5.2 10^3/uL (4.0-10.5)
[2016-04-10] MEDS ORDERED: MAGNESIUM SULFATE/D5W 1 GM/100 ML RTUPB IV ONE (20:00)
[2016-04-11] MEDS: METHADONE HCL 10 MG TABLET PO SCH ×3 (05:19→21:39)
[2016-04-11] MEDS: LANSOPRAZOLE 30 MG TAB.RAP.DR PO SCH (05:19)
[2016-04-11] MEDS: ENOXAPARIN SODIUM INJ 40 MG/0.4 ML DISP.SYRIN SUBCUT SCH (08:26)
[2016-04-11] MEDS: DOCUSATE SODIUM 100 MG CAPSULE PO SCH ×2 (10:21→17:24)
[2016-04-11] MEDS: DULOXETINE HCL 30 MG CAPSULE.DR PO SCH (10:21)
[2016-04-11] MEDS: ERTAPENEM SODIUM 1 GM in NORMAL SALINE 50 ML IV SCH (12:29)
--- NOTE | 2016-04-11 14:25 | Physician Advisory Note ---
Physician Advisor ProgressNote .: Pursuant to the plan for Cathie [facility], I have reviewed the medical record for this patient. Physician Advisor Statement: Quite a list of co-morbidities! Minor possible documentation opportunities if attending agrees: 1. "ACD likely due to " [CKD? hypothyroidism? ...] 2. Please continue to list "obesity with BMI 43.8", & locations of decubiti in notes. Thanks! CK
[2016-04-11] MEDS ORDERED: NORMAL SALINE 1000 ML 1,000 ML IV PRN (15:33)
--- NOTE | 2016-04-11 15:39 | PDOC PROGRESS REPORT ---
Subjective Progress Note for:: 04/11/16 Subjective:: Patient is more awake and alert. Has chronic baseline underlying confusion. Patient tolerating oral intake. No reported temperature spikes, nausea or vomiting, respiratory distress. Patient denies any diarrhea. Has some abdominal discomfort intermittently and complains of constipation. Physical Exam Vital Signs: Temp Pulse Resp BP Pulse Ox 98.8 F 118 H 18 117/77 97 04/11/16 11:43 04/11/16 14:00 04/11/16 11:43 04/11/16 11:43 04/11/16 11:43 Intake & Output 04/10/16 04/11/16 04/12/16 06:59 06:59 06:59 Intake Total 1809 1804 240 Output Total 1119 0518 600 Balance -603 -395 -360 Weight 97.5 kg 101.8 kg General appearance: PRESENT: no acute distress, cooperative, obese Head exam: PRESENT: normocephalic Eye exam: PRESENT: conjunctiva pale Mouth exam: PRESENT: moist, neck supple Neck exam: ABSENT: JVD Respiratory exam: PRESENT: clear to auscultation marko. ABSENT: rhonchi, wheezes Cardiovascular exam: PRESENT: RRR. ABSENT: gallop GI/Abdominal exam: PRESENT: hypoactive bowel sounds, soft, tenderness - Mild diffusely. ABSENT: distended Extremities exam: ABSENT: pedal edema Neurological exam: PRESENT: alert, awake Skin exam: PRESENT: dry, warm. ABSENT: cyanosis Results Laboratory Results: 04/10/16 18:45 04/10/16 05:09 04/10/16 04/10/16 04/11/16 12:23 18:45 04:47 WBC 5.2 RBC 3.11 L Hgb 9.0 L Hct 27.2 L MCV 88 MCH 29.0 MCHC 33.1 RDW 16.0 H Plt Count 264 Magnesium 1.8 Blood Type O POSITIVE Antibody Screen NEGATIVE Impressions: Chest X-Ray 04/08/16 21:40 IMPRESSION: Small left basilar atelectasis, scar, and/or effusion. KUB X-Ray 04/09/16 00:00 IMPRESSION: NO RADIOGRAPHIC EVIDENCE FOR ACUTE ABDOMINAL DISEASE. Assessment & Plan - Diagnosis (1) Hypotension Qualifiers: Hypotension type: unspecified hypotension type Qualified Code(s): I95.9 - Hypotension, unspecified Is this a current diagnosis for this admission?: Yes (2) Acute renal failure Qualifiers: Acute renal failure type: unspecified Qualified Code(s): N17.9 - Acute kidney failure, unspecified Is this a current diagnosis for this admission?: Yes (3) Dehydration Is this a current diagnosis for this admission?: Yes (4) UTI (urinary tract infection) Qualifiers: Urinary tract infection type: site unspecified Hematuria presence: with hematuria Qualified Code(s): N39.0 - Urinary tract infection, site not specified Is this a current diagnosis for this admission?: Yes (5) Decubitus ulcer limited to breakdown of skin (stage 2) Qualifiers: Pressure ulcer location: unspecified location Qualified Code(s): L89.92 - Pressure ulcer of unspecified site, stage 2 Is this a current diagnosis for this admission?: Yes (6) Depression Qualifiers: Depression Type: unspecified Qualified Code(s): F32.9 - Major depressive disorder, single episode, unspecified Is this a current diagnosis for this admission?: Yes (7) GERD (gastroesophageal reflux disease) Qualifiers: Esophagitis presence: without esophagitis Qualified Code(s): K21.9 - Gastro-esophageal reflux disease without esophagitis Is this a current diagnosis for this admission?: Yes (8) Hyperlipidemia Qualifiers: Hyperlipidemia type: unspecified Qualified Code(s): E78.5 - Hyperlipidemia, unspecified Is this a current diagnosis for this admission?: Yes (9) Hypertension Qualifiers: Hypertension type: essential hypertension Qualified Code(s): I10 - Essential (primary) hypertension Is this a current diagnosis for this admission?: Yes (10) Opiate dependence, continuous Is this a current diagnosis for this admission?: Yes (11) Dementia Qualifiers: Dementia type: unspecified type Dementia behavioral disturbance: without behavioral disturbance Qualified Code(s): F03.90 - Unspecified dementia without behavioral disturbance Is this a current diagnosis for this admission?: Yes (12) COPD (chronic obstructive pulmonary disease) Qualifiers: COPD type: unspecified COPD Qualified Code(s): J44.9 - Chronic obstructive pulmonary disease, unspecified Is this a current diagnosis for this admission?: Yes (13) Anemia of chronic disease Is this a current diagnosis for this admission?: Yes (14) Chronic venous stasis dermatitis Qualifiers: Laterality: unspecified laterality Qualified Code(s): I83.10 - Varicose veins of unspecified lower extremity with inflammation Is this a current diagnosis for this admission?: Yes - Time Time Spent with patient: 25-34 minutes - Plan Summary Plan Summary: We are going to try him some Dulcolax suppositories see if it will help her abdominal discomfort and constipation. We are going to decrease intravenous fluids. Continue current antibiotics and follow cultures. Family wanted to change his [place] [facility] therefore we will consult industrial sociologist. Continue supportive care.
[2016-04-11] MEDS ORDERED: BISACODYL 10 MG SUPP.RECT PR ONE (15:45)
[2016-04-12] MEDS: METHADONE HCL 10 MG TABLET PO SCH ×3 (05:19→21:05)
[2016-04-12] MEDS: LANSOPRAZOLE 30 MG TAB.RAP.DR PO SCH (05:19)
[2016-04-12 05:53] LABS: HEMATOCRIT 28.7 % (36.0-47.0); HEMOGLOBIN 9.3 g/dL (12.0-15.5); HGB HCT DIFFERENCE -0.8; MEAN CORPUSCULAR HGB CONC 32.2 g/dL (32.0-36.0); MEAN CORPUSCULAR VOLUME 87 fl (80-97); RED CELL DISTRIBUTION WIDTH 16.4 % (11.5-14.0); WHITE BLOOD COUNT 4.4 10^3/uL (4.0-10.5)
[2016-04-12] MEDS: ENOXAPARIN SODIUM INJ 40 MG/0.4 ML DISP.SYRIN SUBCUT SCH (08:39)
[2016-04-12] MEDS: DOCUSATE SODIUM 100 MG CAPSULE PO SCH ×2 (10:55→17:37)
[2016-04-12] MEDS: DULOXETINE HCL 30 MG CAPSULE.DR PO SCH (10:56)
--- NOTE | 2016-04-12 11:23 | PDOC PROGRESS REPORT ---
Subjective Progress Note for:: 04/12/16 Subjective:: Patient is more awake and alert and responsive today. Has chronic baseline underlying confusion. Patient tolerating oral intake well. Has nausea but no vomiting. No Respiratory distress nor temperature spikes. Patient denies any diarrhea. Has stomach cramping today. Physical Exam Vital Signs: Temp Pulse Resp BP Pulse Ox 98.4 F 114 H 19 141/99 H 97 04/12/16 07:40 04/12/16 07:40 04/12/16 07:40 04/12/16 07:40 04/12/16 07:40 Intake & Output 04/11/16 04/12/16 04/13/16 06:59 06:59 06:59 Intake Total 1804 8827 Output Total 6703 3470 Balance -271 -1353 Weight 101.8 kg 102.8 kg General appearance: PRESENT: no acute distress, cooperative Head exam: PRESENT: normocephalic Eye exam: PRESENT: conjunctiva pale Mouth exam: PRESENT: moist, neck supple Neck exam: ABSENT: JVD Respiratory exam: PRESENT: clear to auscultation marko. ABSENT: rhonchi, wheezes Cardiovascular exam: PRESENT: RRR, tachycardia GI/Abdominal exam: PRESENT: hyperactive bowel sounds, soft. ABSENT: tenderness Extremities exam: ABSENT: pedal edema Neurological exam: PRESENT: alert, awake, other - Appropriately responds to questions. Skin exam: PRESENT: dry, warm. ABSENT: cyanosis Results Laboratory Results: 04/12/16 05:06 04/10/16 05:09 04/12/16 05:06 WBC 4.4 RBC 3.30 L Hgb 9.3 L Hct 28.7 L MCV 87 MCH 28.0 MCHC 32.2 RDW 16.4 H Plt Count 316 Impressions: Chest X-Ray 04/08/16 21:40 IMPRESSION: Small left basilar atelectasis, scar, and/or effusion. KUB X-Ray 04/09/16 00:00 IMPRESSION: NO RADIOGRAPHIC EVIDENCE FOR ACUTE ABDOMINAL DISEASE. Assessment & Plan - Diagnosis (1) Hypotension Qualifiers: Hypotension type: unspecified hypotension type Qualified Code(s): I95.9 - Hypotension, unspecified Is this a current diagnosis for this admission?: Yes (2) Acute renal failure Qualifiers: Acute renal failure type: unspecified Qualified Code(s): N17.9 - Acute kidney failure, unspecified Is this a current diagnosis for this admission?: Yes (3) Dehydration Is this a current diagnosis for this admission?: Yes (4) UTI (urinary tract infection) Qualifiers: Urinary tract infection type: site unspecified Hematuria presence: with hematuria Qualified Code(s): N39.0 - Urinary tract infection, site not specified Is this a current diagnosis for this admission?: Yes (5) Decubitus ulcer limited to breakdown of skin (stage 2) Qualifiers: Pressure ulcer location: unspecified location Qualified Code(s): L89.92 - Pressure ulcer of unspecified site, stage 2 Is this a current diagnosis for this admission?: Yes (6) Depression Qualifiers: Depression Type: unspecified Qualified Code(s): F32.9 - Major depressive disorder, single episode, unspecified Is this a current diagnosis for this admission?: Yes (7) GERD (gastroesophageal reflux disease) Qualifiers: Esophagitis presence: without esophagitis Qualified Code(s): K21.9 - Gastro-esophageal reflux disease without esophagitis Is this a current diagnosis for this admission?: Yes (8) Hyperlipidemia Qualifiers: Hyperlipidemia type: unspecified Qualified Code(s): E78.5 - Hyperlipidemia, unspecified Is this a current diagnosis for this admission?: Yes (9) Hypertension Qualifiers: Hypertension type: essential hypertension Qualified Code(s): I10 - Essential (primary) hypertension Is this a current diagnosis for this admission?: Yes (10) Opiate dependence, continuous Is this a current diagnosis for this admission?: Yes (11) Dementia Qualifiers: Dementia type: unspecified type Dementia behavioral disturbance: without behavioral disturbance Qualified Code(s): F03.90 - Unspecified dementia without behavioral disturbance Is this a current diagnosis for this admission?: Yes (12) COPD (chronic obstructive pulmonary disease) Qualifiers: COPD type: unspecified COPD Qualified Code(s): J44.9 - Chronic obstructive pulmonary disease, unspecified Is this a current diagnosis for this admission?: Yes (13) Anemia of chronic disease Is this a current diagnosis for this admission?: Yes (14) Chronic venous stasis dermatitis Qualifiers: Laterality: unspecified laterality Qualified Code(s): I83.10 - Varicose veins of unspecified lower extremity with inflammation Is this a current diagnosis for this admission?: Yes - Time Time Spent with patient: 15-24 minutes - Plan Summary Plan Summary: We will continue current medications. Add metoprolol for blood pressure control. The patient's symptoms improved by tomorrow morning we will transfer back to his nursing facility. Discontinue Woods catheter. Continue PT.
[2016-04-12] MEDS: ERTAPENEM SODIUM 1 GM in NORMAL SALINE 50 ML IV SCH (11:25)
[2016-04-12] MEDS ORDERED: METOPROLOL TARTRATE 25 MG TABLET PO ONE (12:00)
[2016-04-12] MEDS: METOPROLOL TARTRATE 25 MG TABLET PO SCH (21:04)
[2016-04-12] MEDS: CEFUROXIME 500 MG TABLET PO SCH (21:05)
[2016-04-13] MEDS: METHADONE HCL 10 MG TABLET PO SCH ×3 (05:44→22:57)
[2016-04-13] MEDS: LANSOPRAZOLE 30 MG TAB.RAP.DR PO SCH (05:44)
[2016-04-13] MEDS: ENOXAPARIN SODIUM INJ 40 MG/0.4 ML DISP.SYRIN SUBCUT SCH (08:37)
[2016-04-13] MEDS: METOPROLOL TARTRATE 25 MG TABLET PO SCH ×2 (09:51→23:00)
[2016-04-13] MEDS: DULOXETINE HCL 30 MG CAPSULE.DR PO SCH (09:51)
[2016-04-13] MEDS: CEFUROXIME 500 MG TABLET PO SCH ×2 (09:51→22:59)
[2016-04-13] MEDS: DOCUSATE SODIUM 100 MG CAPSULE PO SCH ×2 (09:51→17:51)
--- NOTE | 2016-04-13 14:24 | PDOC PROGRESS REPORT ---
Subjective Progress Note for:: 04/13/16 Subjective:: Patient is more awake and alert and responsive today. Has chronic baseline underlying confusion. Patient tolerating oral intake well. Has nausea but no vomiting. Still complaining of not feeling well. No Respiratory distress nor temperature spikes. Patient denies any diarrhea. Still has stomach cramping and discomfort. Physical Exam Vital Signs: Temp Pulse Resp BP Pulse Ox 98.5 F 93 20 108/77 96 04/13/16 11:45 04/13/16 14:00 04/13/16 11:45 04/13/16 11:45 04/13/16 11:45 Intake & Output 04/12/16 04/13/16 04/14/16 06:59 06:59 06:59 Intake Total 1847 995 459 Output Total 3200 1000 Balance -1353 -5 459 Weight 102.8 kg 100.8 kg General appearance: PRESENT: no acute distress, cooperative Head exam: PRESENT: normocephalic Eye exam: PRESENT: EOMI Mouth exam: PRESENT: moist, neck supple Neck exam: ABSENT: JVD Respiratory exam: PRESENT: clear to auscultation marko. ABSENT: rhonchi, wheezes Cardiovascular exam: PRESENT: RRR. ABSENT: gallop GI/Abdominal exam: PRESENT: normal bowel sounds, soft. ABSENT: distended, tenderness Extremities exam: ABSENT: pedal edema Neurological exam: PRESENT: alert, awake Skin exam: PRESENT: dry, warm. ABSENT: cyanosis Results Laboratory Results: 04/12/16 05:06 04/10/16 05:09 Impressions: Chest X-Ray 04/08/16 21:40 IMPRESSION: Small left basilar atelectasis, scar, and/or effusion. KUB X-Ray 04/09/16 00:00 IMPRESSION: NO RADIOGRAPHIC EVIDENCE FOR ACUTE ABDOMINAL DISEASE. Abdomen/Pelvis CT 04/13/16 00:00 IMPRESSION: NO SIGNIFICANT OR ACUTE PROCESS IN THE ABDOMEN OR PELVIS. Assessment & Plan - Diagnosis (1) Hypotension Qualifiers: Hypotension type: unspecified hypotension type Qualified Code(s): I95.9 - Hypotension, unspecified Is this a current diagnosis for this admission?: Yes (2) Acute renal failure Qualifiers: Acute renal failure type: unspecified Qualified Code(s): N17.9 - Acute kidney failure, unspecified Is this a current diagnosis for this admission?: Yes (3) Dehydration Is this a current diagnosis for this admission?: Yes (4) UTI (urinary tract infection) Qualifiers: Urinary tract infection type: site unspecified Hematuria presence: with hematuria Qualified Code(s): N39.0 - Urinary tract infection, site not specified Is this a current diagnosis for this admission?: Yes (5) Decubitus ulcer limited to breakdown of skin (stage 2) Qualifiers: Pressure ulcer location: unspecified location Qualified Code(s): L89.92 - Pressure ulcer of unspecified site, stage 2 Is this a current diagnosis for this admission?: Yes (6) Depression Qualifiers: Depression Type: unspecified Qualified Code(s): F32.9 - Major depressive disorder, single episode, unspecified Is this a current diagnosis for this admission?: Yes (7) GERD (gastroesophageal reflux disease) Qualifiers: Esophagitis presence: without esophagitis Qualified Code(s): K21.9 - Gastro-esophageal reflux disease without esophagitis Is this a current diagnosis for this admission?: Yes (8) Hyperlipidemia Qualifiers: Hyperlipidemia type: unspecified Qualified Code(s): E78.5 - Hyperlipidemia, unspecified Is this a current diagnosis for this admission?: Yes (9) Hypertension Qualifiers: Hypertension type: essential hypertension Qualified Code(s): I10 - Essential (primary) hypertension Is this a current diagnosis for this admission?: Yes (10) Opiate dependence, continuous Is this a current diagnosis for this admission?: Yes (11) Dementia Qualifiers: Dementia type: unspecified type Dementia behavioral disturbance: without behavioral disturbance Qualified Code(s): F03.90 - Unspecified dementia without behavioral disturbance Is this a current diagnosis for this admission?: Yes (12) COPD (chronic obstructive pulmonary disease) Qualifiers: COPD type: unspecified COPD Qualified Code(s): J44.9 - Chronic obstructive pulmonary disease, unspecified Is this a current diagnosis for this admission?: Yes (13) Anemia of chronic disease Is this a current diagnosis for this admission?: Yes (14) Chronic venous stasis dermatitis Qualifiers: Laterality: unspecified laterality Qualified Code(s): I83.10 - Varicose veins of unspecified lower extremity with inflammation Is this a current diagnosis for this admission?: Yes - Time Time Spent with patient: 25-34 minutes - Plan Summary Plan Summary: We will put back the patient on her regular dose of methadone. We will resume amitriptyline as well. CT of the abdomen and pelvis is nondiagnostic and showing no acute abnormality. Hopefully when her medications are at baseline, she will have symptomatic improvement. Continue supportive care for now. Hold transfer for now.
[2016-04-13] MEDS ORDERED: DULOXETINE HCL 30 MG CAPSULE.DR PO SCH (14:30)
[2016-04-13] MEDS ORDERED: AMITRIPTYLINE HCL 75 MG TABLET PO SCH (22:00)
[2016-04-13] MEDS ORDERED: AMITRIPTYLINE HCL 100 MG PO SCH (22:00)
[2016-04-14] MEDS: METHADONE HCL 10 MG TABLET PO SCH ×3 (03:50→15:20)
[2016-04-14] MEDS: LANSOPRAZOLE 30 MG TAB.RAP.DR PO SCH (05:12)
[2016-04-14] MEDS: ENOXAPARIN SODIUM INJ 40 MG/0.4 ML DISP.SYRIN SUBCUT SCH (07:30)
[2016-04-14] MEDS: CEFUROXIME 500 MG TABLET PO SCH (09:20)
[2016-04-14] MEDS: DULOXETINE HCL 30 MG CAPSULE.DR PO SCH (09:20)
[2016-04-14] MEDS: METOPROLOL TARTRATE 25 MG TABLET PO SCH (09:21)
[2016-04-14] MEDS: DOCUSATE SODIUM 100 MG CAPSULE PO SCH (09:21)
--- NOTE | 2016-04-14 10:41 | PDOC TRANSFER SUMMARY ---
General - Admit/Disc Date/PCP Admission Date/Primary Care Provider: 04/09/16 08:16 STEPHANI ODEN Discharge Date: 04/14/16 - Discharge Diagnosis (1) Hypotension Is this a current diagnosis for this admission?: Yes (2) Acute renal failure Is this a current diagnosis for this admission?: Yes (3) Dehydration Is this a current diagnosis for this admission?: Yes (4) UTI (urinary tract infection) Is this a current diagnosis for this admission?: Yes (5) Decubitus ulcer limited to breakdown of skin (stage 2) Is this a current diagnosis for this admission?: Yes (6) Depression Is this a current diagnosis for this admission?: Yes (7) GERD (gastroesophageal reflux disease) Is this a current diagnosis for this admission?: Yes (8) Hyperlipidemia Is this a current diagnosis for this admission?: Yes (9) Hypertension Is this a current diagnosis for this admission?: Yes (10) Opiate dependence, continuous Is this a current diagnosis for this admission?: Yes (11) Dementia Is this a current diagnosis for this admission?: Yes (12) COPD (chronic obstructive pulmonary disease) Is this a current diagnosis for this admission?: Yes (13) Anemia of chronic disease Is this a current diagnosis for this admission?: Yes (14) Chronic venous stasis dermatitis Is this a current diagnosis for this admission?: Yes - Additional Information Resuscitation Status: Do Not Resuscitate Discharge Diet: Cardiac - low-fat low-salt Discharge Activity: Activity As Tolerated, Balance Activity w/Rest Home Medications: Albuterol Sulfate [Proair HFA] 1 puff PO QIDP PRN 04/09/16 Dextran 70/Hypromellose [Artificial Tears Drops] 1 drop OU DAILYP PRN 04/09/16 Duloxetine HCl 30 mg PO DAILY 04/09/16 Ergocalciferol (Vitamin D2) [Drisdol 50,000 unit (1.25MG) Capsule] 50,000 units PO Q7D 04/09/16 Fesoterodine Fumarate [Toviaz] 8 mg PO QHS 04/09/16 Fluticasone Propionate 1 spray NASL BIDP PRN 04/09/16 Nystatin [Mycostatin Cream 15 gm] 1 appful TOP QID 04/09/16 Omeprazole 40 mg PO QAM 04/09/16 Simvastatin [Zocor 40 mg Tablet] 40 mg PO DAILY 04/09/16 Amitriptyline HCl [Elavil 150 mg Tablet] 150 mg PO QHS #30 tablet 04/14/16 Docusate Sodium [Colace 100 mg Capsule] 100 mg PO BID capsule 04/14/16 Methadone HCl [Dolophine 10 mg Tablet] 5 mg PO QID #20 tablet 04/14/16 Metoprolol Tartrate [Lopressor 25 mg Tablet] 25 mg PO Q12 #60 tablet 04/14/16 Additional Information: Clean wound daily with normal saline and apply Allevyn dressing. History of Present Illness Admission Date/PCP: 04/09/16 08:16 STEPHANI ODEN Patient complains of: Hypotension History of Present Illness: MARTIR CALIX is a 60 year old female, with underlying dementia, hypertension , chronic back pain on methadone apparently sent to the hospital for low blood pressure. Patient resides in a local half-way and noted to have a low blood pressure. There was no reported discomfort, respiratory distress or coughing, nausea or vomiting, diarrhea. The patient was brought to the emergency room. The lowest blood pressure was 84 systolic and 52 diastolic. Saline boluses were given and her blood pressure improved. She remained tachycardic however. Urinalysis suggestive of urinary tract infection. No temperature spikes or elevated WBC noted. Patient was given intravenous antibiotic, likewise given fentanyl for pain and was referred for admission. Patient with underlying dementia and unable to provide information. Very unreliable. Information obtained from old records and from the transfer form. Hospital Course Hospital Course: The patient was admitted to [facility]. The patient was hydrated with intravenous fluids. With hydration, hypotension resolved, and her creatinine normalized. Her JERAMIE inhibitor was discontinued as her blood pressure has been normal while on the sequeira. She does have urinary tract infection with Escherichia coli versus was treated with intravenous antibiotic and appropriately completed treatment. Course was noted for abdominal discomfort where KUB did not reveal any obstruction and a CT of the abdomen and pelvis did not reveal any acute abnormality. Patient was resumed back on her medications for pain and her symptomatology resolved. The rest of the hospital stays unremarkable. Physical Exam Vital Signs: Temp Pulse Resp BP Pulse Ox 98.3 F 92 16 108/80 96 04/14/16 07:24 04/14/16 07:24 04/14/16 07:24 04/14/16 07:24 04/14/16 07:24 Intake & Output 04/13/16 04/14/16 04/15/16 06:59 06:59 06:59 Intake Total 995 1125 Output Total 1000 200 Balance -5 1125 -200 Weight 100.8 kg 100.8 kg General appearance: PRESENT: no acute distress, cooperative Head exam: PRESENT: normocephalic Eye exam: PRESENT: EOMI Mouth exam: PRESENT: moist, neck supple Neck exam: ABSENT: JVD Respiratory exam: PRESENT: clear to auscultation marko Cardiovascular exam: PRESENT: RRR. ABSENT: gallop GI/Abdominal exam: PRESENT: hypoactive bowel sounds, soft. ABSENT: distended, tenderness Extremities exam: ABSENT: pedal edema Neurological exam: PRESENT: alert, awake Skin exam: PRESENT: dry, warm. ABSENT: cyanosis Results Laboratory Results: 04/12/16 05:06 04/10/16 05:09 Impressions: Chest X-Ray 04/08/16 21:40 IMPRESSION: Small left basilar atelectasis, scar, and/or effusion. KUB X-Ray 04/09/16 00:00 IMPRESSION: NO RADIOGRAPHIC EVIDENCE FOR ACUTE ABDOMINAL DISEASE. Abdomen/Pelvis CT 04/13/16 00:00 IMPRESSION: NO SIGNIFICANT OR ACUTE PROCESS IN THE ABDOMEN OR PELVIS. Transfer Plan - Disposition Transfer Plan: [facility] The patient will be followed by the physician at the facility. - Time Spent with Patient Time spent with patient: Less than 30 Minutes Qualifiers PATEINT BEING DISCHARGED WITH ANY OF THE FOLLOWING DIAGNOSIS?: No Plan Discharge Plan: Follow-up with primary care physician in one week. Time Spent: Less than 30 Minutes
[2016-04-14 12:24] VITALS: BP 105/65
[2016-04-14] MEDS ORDERED: AMITRIPTYLINE HCL 75 MG TABLET PO SCH (22:00)
== END 2016-04-14 16:00 | DRG 683 ==
LOC: ER 21:33 → EH 04-09 06:47 → UNDOADMIN 04-09 06:47 → EH 04-09 08:16 → 3S 04-09 14:43 → 3W 04-09 20:28
PROVIDERS: ADMIT Internal Medicine; ATTEND Internal Medicine
PROC: 30233N1 Transfusion of Nonautologous Red Blood Cells into Peripheral Vein, Percutaneous Approach (ICD-10-PCS; principal; 2016-04-10)
DX: N17.9 Acute kidney failure, unspecified (principal); N39.0 Urinary tract infection, site not specified; I95.9 Hypotension, unspecified; E86.0 Dehydration; F32.9 Major depressive disorder, single episode, unspecified; K21.9 Gastro-esophageal reflux disease without esophagitis; E78.5 Hyperlipidemia, unspecified; I10 Essential (primary) hypertension; F03.90 Unspecified dementia, unspecified severity, without behavioral disturbance, psychotic disturbance, mood disturbance, and anxiety; J44.9 Chronic obstructive pulmonary disease, unspecified; D63.8 Anemia in other chronic diseases classified elsewhere; I87.2 Venous insufficiency (chronic) (peripheral); G89.29 Other chronic pain; J45.909 Unspecified asthma, uncomplicated; B96.20 Unspecified Escherichia coli [E. coli] as the cause of diseases classified elsewhere; M54.9 Dorsalgia, unspecified; M19.90 Unspecified osteoarthritis, unspecified site; D51.9 Vitamin B12 deficiency anemia, unspecified; L89.42 Pressure ulcer of contiguous site of back, buttock and hip, stage 2; L89.892 Pressure ulcer of other site, stage 2; E78.00 Pure hypercholesterolemia, unspecified; Z66 Do not resuscitate; Z79.891 Long term (current) use of opiate analgesic; Z79.899 Other long term (current) drug therapy; Z90.710 Acquired absence of both cervix and uterus; Z79.4 Long term (current) use of insulin
CPT/HCPCS: 36415; 36430; 51702; 71010; 74000; 74176; 80048; 80053; 81001; 82803; 83605; 83735; 84100; 84439; 84443; 85025; 85027; 85610; 86850; 86900; 86901; 86920; 87040; 87086; 87088; 87186; 93005; 93010; 96361; 96374; 99285; G8978-GP; G8979-GP; J1335; J1650; J3010; J3475; J3490; J7030; P9016

== ENCOUNTER → 2016-12-02 | Outpatient (CLI) | payer MEDICARE, MEDICAID ==
--- NOTE | 2016-12-02 15:05 | RADIOLOGY REPORT (SQ) ---
EXAM DESCRIPTION: CT ABDOMEN NO ORAL OR IV COMPLETED DATE/TIME: 12/02/2016 2:31 pm REASON FOR STUDY: UNSPECIFIED ABDOMINAL HERNIA WITHOUT OBSTRUCTION OR GANGRENE K46.9 UNSPECIFIED AB DOMINAL HERNIA WITHOUT OBSTRUCTION OR GA COMPARISON: 04/13/2016 TECHNIQUE: CT scan of the abdomen performed without intravenous contrast and without oral contrast. Images reviewed with lung, soft tissue, and bone windows. Reconstructed coronal and sagittal MPR im ages reviewed. All images stored on PACS. All CT scanners at this facility use dose modulation, iterative reconstruction, and/or weight based d osing when appropriate to reduce radiation dose to as low as reasonably achievable (ALARA). [facility]: Dose Right [facility]: CareDose [facility]: Dose Right [facility]: Teradose 4D [facility]: [employer] RADIATION DOSE: Up-to-date CT equipment and radiation dose reduction techniques were employed. CTDIv ol: 26.3 mGy. DLP: 970 mGy-cm.mGy. LIMITATIONS: None. FINDINGS: LOWER CHEST: No significant findings. No nodules or infiltrates. NONCONTRASTED LIVER, SPLEEN, ADRENALS: Evaluation limited by lack of IV contrast. No identified sign ificant masses. PANCREAS: No masses. No peripancreatic inflammatory changes. GALLBLADDER: Gallstones. No inflammatory changes to suggest cholecystitis. RIGHT KIDNEY AND URETER: No suspicious masses. Assessment limited by lack of IV contrast. No signif icant calcifications. No hydronephrosis or hydroureter. LEFT KIDNEY AND URETER: No suspicious masses. Assessment limited by lack of IV contrast. No signifi cant calcifications. No hydronephrosis or hydroureter. AORTA AND RETROPERITONEUM: No aneurysm. No retroperitoneal masses or adenopathy. BOWEL AND PERITONEAL CAVITY: Anastomosis sigmoid colon. Abundant fecal material. Redundant, dilated transverse colon approximately 9 cm. No obvious dilatation of the cecum although the majority is ex cluded from the field of view. Descending colon is normal in caliber. No ascites or free air. APPENDIX: Not visualized. ABDOMINAL WALL: Postsurgical changes left lower quadrant anterior abdominal wall. No recurrent herni a identified. BONES: No acute findings. OTHER: No other significant finding. IMPRESSION: Postsurgical changes. Partial colonic obstruction versus pseudo-obstruction. TECHNICAL DOCUMENTATION: JOB ID: [id number] Quality ID # [id number]: Final reports with documentation of one or more dose reduction techniques (e.g., Au tomated exposure control, adjustment of the mA and/or kV according to patient size, use of iterative reconstruction technique) 2010 [employer]- All Rights Reserved
== END ==
LOC: RAD 14:05
PROVIDERS: ATTEND Internal Medicine
DX: K46.9 Unspecified abdominal hernia without obstruction or gangrene (principal)
CPT/HCPCS: 74150

== ENCOUNTER 2017-01-21 16:29 | Day surgery (SDC) | payer MEDICARE, MEDICAID ==
[~2017-01-21 16:29] MED LIST: EPINEPHRINE INJ 1 MG/10 ML DISP.SYRIN ONE; FENTANYL CITRATE INJ/PF 100 MCG/2 ML AMPUL ONE; FLUMAZENIL INJ 0.5 MG/5 ML VIAL ONE; GLUCAGON,HUMAN RECOMB 1 MG INJ ONE; MIDAZOLAM 2 MG/2 ML INJ ONE; NALOXONE HCL INJ/PF 0.4 MG/1 ML SDV ONE
--- NOTE | 2017-01-21 17:33 | Operative Report ---
Operative Report DATE OF SURGERY: 01/21/17 Operative Report: Pre-op diagnosis: History of dilated colon on CAT scan Post-op diagnosis: 1. Dilated transverse and distal ascending colon 2. Limited view of the colon 3. Sigmoid diverticulum Surgery: Colonoscopy Medications: Versed 1mg, Fentanyl 50mcg IV push Tissue removed: None Procedure: After informed consent obtained from patient, conscious sedation was achieved. A digital rectal examination was performed and this was unremarkable. The colonoscope was inserted into the rectum and advanced to the ileocolonic anastomosis in the distal ascending colon. The mucosa was examined into details as the colonoscope was slowly pulled out of the patient. The endoscope was retroflexed in the rectum. Patient tolerated the procedure well. Findings Ascending colon: Normal anastomosis with dilated colon Transverse colon: Marked dilation Descending colon: Limited view due to stool Sigmoid colon: Limited view. Sigmoid diverticula Rectum: Normal except for internal hemorrhoids Plan: Repeat colonoscopy with better preparation OPERATION: .
[2017-01-21 18:41] VITALS: BP 114/91
== END 2017-01-21 18:36 | disposition home or self-care (01) ==
LOC: END 16:29
PROVIDERS: ATTEND Internal Medicine Gastroenterology
PROC: 0DJD8ZZ Inspection of Lower Intestinal Tract, Via Natural or Artificial Opening Endoscopic (ICD-10-PCS; principal; 2017-01-21 16:15)
DX: K57.30 Diverticulosis of large intestine without perforation or abscess without bleeding (principal); K59.39 Other megacolon; K64.8 Other hemorrhoids; I10 Essential (primary) hypertension; D64.9 Anemia, unspecified; J44.9 Chronic obstructive pulmonary disease, unspecified
CPT/HCPCS: 45378; J2250; J0171; J1610; J2310; J3010; J3490

== ENCOUNTER 2017-02-18 15:18 | Day surgery (SDC) | payer MEDICARE, MEDICAID ==
--- NOTE | 2017-02-18 16:41 | Operative Report ---
Operative Report DATE OF SURGERY: 02/18/17 Operative Report: Pre-op diagnosis: Dilated colon on CAT scan Post-op diagnosis: 1. Dilated transverse colon close to ileocolonic anastomotic area Surgery: Colonoscopy Medications: Versed 2mg, Fentanyl 50mcg IV push Tissue removed: None Procedure: After informed consent obtained from patient, conscious sedation was achieved. A digital rectal examination was performed and this was unremarkable. The colonoscope was inserted into the rectum and advanced to the ileocolonic anastomosis in the transverse colon at about 65-70 cm. The appendiceal orifice and the terminal ileum were both identified. The mucosa was examined into details as the colonoscope was slowly pulled out of the patient. The endoscope was retroflexed in the rectum. Patient tolerated the procedure well. Findings Transverse colon: Marked dilation with some residual stool around the anastomosis and the transverse colon. View was slightly limited Descending colon: Normal Sigmoid colon: Normal Rectum: Normal except for internal hemorrhoids Plan: Continue MiraLAX and fiber supplements OPERATION: .
[2017-02-18] MEDS ORDERED: FENTANYL CITRATE INJ/PF 100 MCG/2 ML AMPUL ONE (17:23)
[2017-02-18 17:54] VITALS: BP 132/65
== END 2017-02-18 17:50 ==
LOC: END 15:18
PROVIDERS: ATTEND Internal Medicine Gastroenterology
PROC: 0DJD8ZZ Inspection of Lower Intestinal Tract, Via Natural or Artificial Opening Endoscopic (ICD-10-PCS; principal; 2017-02-18 15:30)
DX: K64.8 Other hemorrhoids (principal); K59.39 Other megacolon; R93.3 Abnormal findings on diagnostic imaging of other parts of digestive tract
CPT/HCPCS: 45378; J2250; J3010; J0171; J1610; J2310; J3490

== ENCOUNTER 2017-05-28 21:49 | Inpatient (IN) | payer MEDICARE, MEDICAID ==
[2017-05-28] MEDS ORDERED: VANCOMYCIN HCL INJ 1000 MG VIAL IV ONE (22:14)
[2017-05-28] MEDS ORDERED: PIPERACILLIN/TAZOBACTAM 4.5 GM VIAL IV ONE (22:14)
[2017-05-28] MEDS ORDERED: NORMAL SALINE 1000 ML 1,000 ML IV ONE (22:16)
--- NOTE | 2017-05-28 22:19 | ER Document Report ---
ED General - General Stated Complaint: FEVER Time Seen by Provider: 05/28/17 21:59 Notes: Patient is 61-year-old female from the [facility] with history of dementia who presents with redness along the skin along the left flank and to the left hip and left leg. She also has a fever. She is also tachycardic. She is unable to give much history due to her dementia and altered mental status. TRAVEL OUTSIDE OF THE [place] IN LAST 30 DAYS: No - Related Data Allergies/Adverse Reactions: No Known Allergies Allergy (Verified 02/18/17 15:28) Past Medical History - Social History Smoking Status: Never Smoker Frequency of alcohol use: None Drug Abuse: None Family History: Reviewed & Not Pertinent, Other - Unobtainable from the patient - Past Medical History Cardiac Medical History: Reports: Hx Hypercholesterolemia, Hx Hypertension Denies: Hx Coronary Artery Disease, Hx Heart Attack Pulmonary Medical History: Reports: Hx Asthma, Hx Bronchitis, Hx COPD Denies: Hx Pneumonia Neurological Medical History: Denies: Hx Cerebrovascular Accident, Hx Seizures GI Medical History: Reports: Hx Gastroesophageal Reflux Disease Musculoskeltal Medical History: Reports Hx Arthritis Skin Medical History: Reports Hx Cellulitis Psychiatric Medical History: Reports: Hx Depression - Not currently depressed Past Surgical History: Reports: Hx Bowel Surgery, Hx Hysterectomy, Hx Tonsillectomy - Immunizations Hx Diphtheria, Pertussis, Tetanus Vaccination: No Hx Pneumococcal Vaccination: 03/03/12 Review of Systems - Review of Systems -: Yes ROS unobtainable due to patient's medical condition - Patient has altered mental status. Physical Exam - Vital signs Vitals: Resp Pulse Ox 29 H 99 05/28/17 21:58 05/28/17 21:58 - Notes Notes: General Appearance: Well nourished, alert, patient does not appear to be in discomfort. She will randomly answer some questions but her answers do not always make sense. Vitals: reviewed, See vital signs table. Head: no swelling or tenderness to the head Eyes: PERRL, EOMI, Conjuctiva clear Mouth: No decreasd moisture Throat: No tonsillar inflammation, No airway obstruction, No lymphadenopathy Neck: Supple, no neck swelling Lungs: No wheezing, No rales, No rhonci, No accessory muscle use, good air exchange bilaterally. Heart: Tachycardic rate, Regular rythm, No murmur, no rub Abdomen: Normal BS, soft, No rigidity, abdomen is distended with mild pain to palpation. Extremities: strength 5/5 in all extremities, good pulses in all extremities, no swelling or tenderness in the extremities, no edema. Skin: warm, dry, appropriate color, patient has erythema redness along the left hip and left thigh and into the left flank. She does have some skin breakdown along the inner thighs. Neuro: speech clear, oriented x 1, awake and alert. Unable to sit up in bed on her own. Does pick up driver her arms on her own. She is able to move her legs some but has overall global weakness. Course - Re-evaluation Re-evalutation: 05/28/17 22:21 Patient comes in with signs of sepsis patient has fever and obvious cellulitis of the left side. I do not see an area of skin breakdown or ulceration at this time. Do not feel any crepitance and she does not have pain out of proportion to suggest necrotizing fasciitis. Will start on broad-spectrum antibiotics and obtain laboratory evaluation. She does have some distended abdomen. I will obtain acute abdominal series. 05/29/17 01:25 Chest x-ray does show evidence of a bowel obstruction. I have ordered a CT scan and also an NG tube to be placed. Reevaluation patient's mental status remains the same. 05/29/17 02:[address] scan shows that the findings on her acute abdominal series are actually more consistent with a chronic process. She does not have a bowel obstruction. An NG tube was placed it just brought back here. NG tube therefore is pulled. Patient does not have a bowel obstruction. Patient is being treated for sepsis with urinary tract infection and cellulitis. I did speak with Dr. Brown, hospitalist, who agrees to accept the patient for admission. On reevaluation the patient's tachycardia is improving. Her blood pressure is normal. Her mental status has improved significantly in the last hour. Dictation of this chart was performed using voice recognition software; therefore, there may be some unintended grammatical errors. - Vital Signs Vital signs: Temp Pulse Resp BP Pulse Ox 103.2 F H 16 103/79 97 05/28/17 23:44 05/29/17 00:01 05/29/17 00:00 05/29/17 00:01 - Laboratory Result Diagrams: 05/28/17 21:23 05/28/17 21:23 Laboratory results interpreted by me: 05/28/17 05/28/17 05/28/17 21:23 21:23 23:43 WBC 14.1 H Hgb 11.1 L Hct 34.7 L RDW 15.4 H Seg Neutrophils % 88.5 H Lymphocytes % 5.8 L Absolute Neutrophils 12.5 H Carbon Dioxide 33 H Glucose 115 H Urine Protein 30 H Urine Blood SMALL H Urine Urobilinogen 4.0 H Ur Leukocyte Esterase MODERATE H - EKG Interpretation by Me Additional EKG results interpreted by me: 05/28/17 22:17 EKG is reviewed and interpreted by me. EKG shows sinus tachycardia with a rate of [address] segment elevation or depression. No ischemic T-wave inversions. VT interval, QRS duration, QTc intervals are within normal range. No old EKG available for comparison at this time. Critical Care Note - Critical Care Note Total time excluding time spent on procedures (mins): 50 Comments: Critical care time spent on this patient not including time spent on procedures approximately 50 minutes due to frequent re-evaluations and management of sepsis. Discharge - Discharge Clinical Impression: SIRS (systemic inflammatory response syndrome) UTI (urinary tract infection) Qualifiers: Urinary tract infection type: site unspecified Hematuria presence: without hematuria Qualified Code(s): N39.0 - Urinary tract infection, site not specified Cellulitis Qualifiers: Site of cellulitis: unspecified site Qualified Code(s): L03.90 - Cellulitis, unspecified Condition: Stable Disposition: ADMITTED INPATIENT Admitting Provider: Hospitalist Unit Admitted: [facility]
[2017-05-28 22:41] LABS: ABSOLUTE BASOPHILS # (AUTO) 0.1 10^3/uL (0.0-0.2); ABSOLUTE EOSINOPHILS # (AUTO) 0.2 10^3/uL (0.0-0.6); ABSOLUTE LYMPHOCYTES (AUTO) 0.8 10^3/uL (0.5-4.7); ABSOLUTE MONOCYTES (AUTO) 0.5 10^3/uL (0.1-1.4); ABSOLUTE NEUT (AUTO) 12.5 10^3/uL (1.7-8.2); BASOPHILS % (AUTO) 0.4 % (0-2); EOSINOPHILS % (AUTO) 1.7 % (0-6); HEMATOCRIT 34.7 % (36.0-47.0); HEMOGLOBIN 11.1 g/dL (12.0-15.5); LYMPHOCYTES % (AUTO) 5.8 % (13-45); MEAN CORPUSCULAR HEMOGLOBIN 29.3 pg (27.0-33.4); MEAN CORPUSCULAR VOLUME 91 fl (80-97); MONOCYTES % (AUTO) 3.6 % (3-13); PLATELET COUNT 246 10^3/uL (150-450); RED CELL DISTRIBUTION WIDTH 15.4 % (11.5-14.0); SEGMENTED NEUTROPHILS % (AUTO) 88.5 % (42-78); TOTAL CELLS COUNTED % (AUTO) 100 %; WHITE BLOOD COUNT 14.1 10^3/uL (4.0-10.5)
[2017-05-28 22:45] LABS: ALANINE AMINOTRANSFERASE 20 U/L (9-52); ALKALINE PHOSPHATASE 109 U/L (38-126); ANION GAP 9 (5-19); ASPARTATE AMINO TRANSFERASE 24 U/L (14-36); BILIRUBIN,DIRECT 0.2 mg/dL (0.0-0.4); BILIRUBIN,TOTAL 0.4 mg/dL (0.2-1.3); BLOOD UREA NITROGEN 15 mg/dL (7-20); CARBON DIOXIDE 33 mmol/L (22-30); CHLORIDE 101 mmol/L (98-107); GLUCOSE 115 mg/dL (75-110); SODIUM 142.7 mmol/L (137-145); TOTAL PROTEIN 7.4 g/dL (6.3-8.2)
[2017-05-29 00:01] LABS: APPEARANCE,URINE TURBID; BILIRUBIN,URINE NEGATIVE (NEGATIVE); COLOR,URINE YELLOW; GLUCOSE, URINE NEGATIVE (NEGATIVE); KETONES,URINE NEGATIVE (NEGATIVE); LEUKOCYTE ESTERASE,URINE MODERATE (NEGATIVE); NITRITE,URINE NEGATIVE (NEGATIVE); PROTEIN,URINE 30 mg/dL (NEGATIVE); URINE SPECIFIC GRAVITY 1.012
[2017-05-29] MEDS ORDERED: LIDOCAINE 2% INJ-PF (20 MG/ML) 10 ML AMPUL NEB ONE (01:23)
[2017-05-29] MEDS ORDERED: LIDOCAINE 1% INJ-PF (10 MG/ML) 30 ML SDV NEB ONE (01:23)
--- NOTE | 2017-05-29 01:43 | RADIOLOGY REPORT (SQ) ---
EXAM DESCRIPTION: ACUTE ABDOMEN SERIES CLINICAL HISTORY: 61 years, Female, fever, abdominal distention COMPARISON: CT, 12/02/2016, report only. CR, chest, report only, 03/18/2016. TECHNIQUE: Five views LIMITATIONS: None. FINDINGS: Chronic dilated large bowel measures up to 12.7 cm in diameter in the right colon, mild right colonic bowel wall thickening, no free air, lower abdominal clips, and mild pulmonary interstitial markings. Chronic deformity of bilateral femoral heads. Mildly enlarged cardiac silhouette. Atherosclerosis. IMPRESSION: 1. Colonic ileus pattern, chronic. Differential diagnosis includes large bowel obstructive process. 2. Mild right colitis pattern. Infectious, inflammatory, neoplastic etiologies are in the differential diagnosis. 3. Mild chronic interstitial lung disease pattern. Differential diagnosis includes atypical pneumonitis and mild pulmonary edema.
--- NOTE | 2017-05-29 02:13 | RADIOLOGY REPORT (SQ) ---
EXAM DESCRIPTION: CT ABD/PELVIS WITH IV ONLY CLINICAL HISTORY: 61 years Female, abdominal pain, obstruction COMPARISON: 12.02.16 TECHNIQUE: IV contrast. Coronal and sagittal reformat. This exam was performed according to our departmental dose-optimization program, which includes automated exposure control, adjustment of the mA and/or kV according to patient size and/or use of iterative reconstruction technique. FINDINGS: No acute findings. No free fluid/air. Small atelectasis or scar bilateral lung bases. Moderate coronary arterial calcification. Calcification associated with the aortic valve. Mild hepatic steatosis. Moderate pancreatic atrophy. Woods catheter and bulb. Dilated transverse colon measuring up to 8.5 cm in diameter consistent with colonic ileus. Atherosclerosis. Chronic bilateral femoral heads with moderate bilateral hip osteoarthritis. Grade 1 L4 and L5 anterolisthesis. Stable. Liver, gallbladder, spleen, adrenals, renal system, pelvic organs, lymphatics, vasculature, and musculoskeleton appear otherwise unremarkable. IMPRESSION: No acute findings. Colonic ileus pattern.
[2017-05-29] MEDS ORDERED: MINERAL OIL ENEMA 133 ML PR ONE (02:25)
[2017-05-29] MEDS ORDERED: MAG HYDROX/AL HYDROX/SIMETH SUSP 30 ML UDCUP PO PRN (02:25)
[2017-05-29] MEDS ORDERED: ACETAMINOPHEN 325 MG TABLET PO PRN (02:25)
[2017-05-29] MEDS ORDERED: MAGNESIUM HYDROXIDE SUSP 30 ML UDCUP PO ONE (02:29)
[2017-05-29] MEDS ORDERED: VANCOMYCIN HCL 0 MG in DEXTROSE 5%-WATER 250 ML IV NR (02:30)
[2017-05-29] MEDS ORDERED: PIPERACILLIN/TAZOBACTAM 4.5 GM VIAL IV PRN (02:43)
[2017-05-29] MEDS: NORMAL SALINE 1000 ML 1,000 ML IV SCH ×3 (03:24→08:46)
[2017-05-29] MEDS ORDERED: PIPERACILLIN/TAZOBACTAM 4.5 GM VIAL IV ONE (04:55)
[2017-05-29] MEDS: HEPARIN SOD (PORCINE) 5,000 UNIT/ML 1 ML SYRINGE SUBCUT SCH ×3 (05:19→21:48)
--- NOTE | 2017-05-29 05:43 | PDOC H&P ---
History of Present Illness Admission Date/PCP: 05/29/17 02:31 Patient complains of: Hypotension History of Present Illness: MARTIR CALIX is a 61 year old long-term detention resident with a past medical history of profound dementia, hypertension, chronic pain on methadone is referred to the emergency room with hypotension, fever, left leg erythema and delirium. In the emergency room she is found to have a blood pressure of 80 /50 and a temperature of 103.5. She is arousable but unable to provide history. CT imaging of the abdomen revealed ileus and constipation, urinalysis shows significant pyuria. She started on empiric antibiotics and referred to the hospitalist for admission. Past Medical History Cardiac Medical History: Reports: Hyperlipidema, Hypertension Denies: Coronary Artery Disease, Myocardial Infarction Pulmonary Medical History: Reports: Asthma, Bronchitis, Chronic Obstructive Pulmonary Disease (COPD) Denies: Pneumonia Neurological Medical History: Denies: Seizures Endocrine Medical History: Reports: Obesity GI Medical History: Reports: Gastroesophageal Reflux Disease Musculoskeltal Medical History: Reports: Arthritis Psychiatric Medical History: Reports: Depression - Not currently depressed Hematology: Reports: Anemia Past Surgical History Past Surgical History: Reports: Hysterectomy, Tonsillectomy Social History Information Source: Emergency Med Personnel, [facility] Records Lives with: Detention Smoking Status: Never Smoker Frequency of Alcohol Use: None Hx Recreational Drug Use: No Drugs: None Hx Prescription Drug Abuse: No - Advance Directive Resuscitation Status: Do Not Resuscitate Family History Family History: Other - Unobtainable from the patient Parental Family History Reviewed: No - Unobtainable Children Family History Reviewed: No - Unobtainable Sibling(s) Family History Reviewed.: No - Unobtainable Medication/Allergy Home Medications: Albuterol Sulfate [Proair HFA] 1 puff PO QIDP PRN 04/09/16 Duloxetine HCl 30 mg PO DAILY 04/09/16 Ergocalciferol (Vitamin D2) [Drisdol 50,000 unit (1.25MG) Capsule] 50,000 units PO Q7D 04/09/16 Fesoterodine Fumarate [Toviaz] 8 mg PO QHS 04/09/16 Fluticasone Propionate 2 spray NASL DAILY 04/09/16 Omeprazole 20 mg PO QAM 04/09/16 Simvastatin [Zocor 40 mg Tablet] 40 mg PO DAILY 04/09/16 Metoprolol Tartrate [Lopressor 25 mg Tablet] 25 mg PO Q12 #60 tablet 04/14/16 Cyclobenzaprine HCl [Flexeril 10 mg Tablet] 10 mg PO BID 01/14/17 Lorazepam [Ativan 0.5 mg Tablet] 0.5 mg PO DAILY PRN 01/14/17 Polyethylene Glycol 3350 [Miralax Powder 17 gm/Packet] 1 packet PO BID 01/14/17 Polyvinyl Alcohol [Liquid Tears] 2 drop OU QID 01/14/17 Amitriptyline HCl [Elavil 150 mg Tablet] 150 mg PO QHS 02/18/17 Ascorbic Acid [Vitamin C] 2 tab PO DAILY 02/18/17 Carvedilol 25 mg PO Q12 02/18/17 Clonidine HCl [Catapres 0.2 mg Tablet] 0.2 mg PO Q12 02/18/17 Cyanocobalamin (Vitamin B-12) [Vitamin B-12 Inj 1000 Mcg/1 ml Vial] 1,000 mcg IM .MONTHLY 02/18/17 Febuxostat [Uloric 40 mg Tablet] 40 mg PO DAILY 02/18/17 Folic Acid 1 mg PO DAILY 02/18/17 Furosemide [Lasix 20 mg Tablet] 20 mg PO QAM 02/18/17 Gabapentin [Neurontin 300 mg Capsule] 300 mg PO Q8 02/18/17 Guar Gum [Benefiber] 1 tbs PO BID 02/18/17 Hydralazine HCl [Apresoline 50 mg Tablet] 50 mg PO TID 02/18/17 Hydrocortisone 10 mg PO DAILY 02/18/17 L.acidoph,Paracasei, B.lactis [Probiotic] 1 each PO BID 02/18/17 Losartan Potassium [Cozaar 50 mg Tablet] 50 mg PO DAILY 02/18/17 Magnesium Oxide [Magnesium] 400 mg PO DAILY 02/18/17 Methadone HCl [Dolophine 10 mg Tablet] 5 mg PO QID 02/18/17 Montelukast Sodium [Singulair 10 mg Tablet] 10 mg PO DAILY 02/18/17 Multivitamin/Iron/Folic Acid [Centrum Adults Tablet] 1 each PO DAILY 02/18/17 [place]-3 Fatty Acids/Fish Oil [Fish Oil 1,000 mg Capsule] 2 each PO BID 02/18/17 Potassium Chloride 10 meq PO DAILY 02/18/17 Ranitidine HCl [Zantac] 300 mg PO BID 02/18/17 Ropinirole HCl [Requip] 1 mg PO BID 02/18/17 Allergies/Adverse Reactions: No Known Allergies Allergy (Verified 02/18/17 15:28) Review of Systems ROS unobtainable: Due to mental status - Profound dementia unobtainable Physical Exam Vital Signs: Temp Pulse Resp BP Pulse Ox 97.6 F 97 15 82/45 L 100 05/29/17 03:55 05/29/17 04:05 05/29/17 03:58 05/29/17 03:58 05/29/17 03:58 Intake & Output 05/27/17 05/28/17 05/29/17 11:59 11:59 11:59 Weight 120.3 kg General appearance: PRESENT: no acute distress, morbidly obese. ABSENT: disheveled Head exam: PRESENT: atraumatic, normocephalic Eye exam: PRESENT: conjunctiva pink, EOMI, PERRLA. ABSENT: scleral icterus Ear exam: PRESENT: normal external ear exam Mouth exam: PRESENT: moist, tongue midline Neck exam: ABSENT: carotid bruit, JVD, lymphadenopathy, thyromegaly Respiratory exam: PRESENT: clear to auscultation marko. ABSENT: rales, rhonchi, wheezes Cardiovascular exam: PRESENT: RRR. ABSENT: diastolic murmur, rubs, systolic murmur Pulses: PRESENT: normal dorsalis pedis pul Vascular exam: PRESENT: normal capillary refill GI/Abdominal exam: PRESENT: distended, firm, hernia, hypoactive bowel sounds, normal bowel sounds, soft. ABSENT: guarding, mass, organolmegaly, rebound, tenderness Rectal exam: PRESENT: deferred Extremities exam: PRESENT: full ROM, +1 edema - Left leg with circumferential erythema and 2 x 2 centimeter stage II decubiti lower left leg without exudate. ABSENT: calf tenderness, clubbing, pedal edema Musculoskeletal exam: PRESENT: full ROM Neurological exam: PRESENT: altered, reflexes normal, CN II-XII grossly intact. ABSENT: oriented to time, oriented to situation Psychiatric exam: PRESENT: appropriate affect, normal mood. ABSENT: homicidal ideation, suicidal ideation Skin exam: PRESENT: dry, erythema - Erythema of the groin, intact, warm. ABSENT : cyanosis, rash Results Impressions: Acute Abdomen Series 05/28/17 22:16 IMPRESSION: 1. Colonic ileus pattern, chronic. Differential diagnosis includes large bowel obstructive process. 2. Mild right colitis pattern. Infectious, inflammatory, neoplastic etiologies are in the differential diagnosis. 3. Mild chronic interstitial lung disease pattern. Differential diagnosis includes atypical pneumonitis and mild pulmonary edema. Abdomen/Pelvis CT 05/29/17 01:07 IMPRESSION: No acute findings. Colonic ileus pattern. Assessment & Plan - Diagnosis (1) SIRS (systemic inflammatory response syndrome) Is this a current diagnosis for this admission?: Yes Plan: Cellulitis of the left leg versus UTI, empiric antibiotics IV fluid challenge, follow-up CBC, blood and urine culture (2) Encephalopathy Is this a current diagnosis for this admission?: Yes Plan: Multifactorial secondary to acute illness, methadone and possibly hypercapnia given elevated bicarb. Follow-up ABG versus trial low-dose Narcan. (3) Cellulitis Qualifiers: Site of cellulitis: unspecified site Qualified Code(s): L03.90 - Cellulitis , unspecified Is this a current diagnosis for this admission?: Yes Plan: History of chronic venous stasis, elevate left lower leg, follow-up blood culture, empiric antibiotics initiated (4) Urinary tract infection Qualifiers: Urinary tract infection type: site unspecified Hematuria presence: without hematuria Qualified Code(s): N39.0 - Urinary tract infection, site not specified Is this a current diagnosis for this admission?: Yes Plan: Empiric antibiotics follow-up microbiology and CBC (5) Ileus Is this a current diagnosis for this admission?: Yes Plan: Secondary to Sirs and constipation, correct the above and fleet enema (6) Constipation Is this a current diagnosis for this admission?: Yes Plan: Fleet enema (7) Tinea corporis Is this a current diagnosis for this admission?: Yes Plan: Diflucan - Time Time Spent: 50 to 70 Minutes - Inpatient Certification Medical Necessity: Need Close Monitoring Due to Risk of Patient Decompensation
[2017-05-29] MEDS ORDERED: NALOXONE HCL INJ/PF 0.4 MG/1 ML SDV IV ONE (05:44)
[2017-05-29] MEDS ORDERED: PIPERACILLIN SODIUM/TAZOBACTAM 4.5 GM in NORMAL SALINE 100 ML IV SCH (06:00)
[2017-05-29 06:24] LABS: ABSOLUTE BASOPHILS # (AUTO) 0.1 10^3/uL (0.0-0.2); ABSOLUTE EOSINOPHILS # (AUTO) 0.1 10^3/uL (0.0-0.6); ABSOLUTE MONOCYTES (AUTO) 0.5 10^3/uL (0.1-1.4); ABSOLUTE NEUT (AUTO) 14.6 10^3/uL (1.7-8.2); BASOPHILS % (AUTO) 0.6 % (0-2); EOSINOPHILS % (AUTO) 0.4 % (0-6); HEMATOCRIT 33.8 % (36.0-47.0); HEMOGLOBIN 10.9 g/dL (12.0-15.5); MEAN CORPUSCULAR HEMOGLOBIN 28.9 pg (27.0-33.4); MEAN CORPUSCULAR HGB CONC 32.2 g/dL (32.0-36.0); MEAN CORPUSCULAR VOLUME 90 fl (80-97); MONOCYTES % (AUTO) 2.9 % (3-13); PLATELET COUNT 174 10^3/uL (150-450); RED BLOOD COUNT 3.76 10^6/uL (3.72-5.28); RED CELL DISTRIBUTION WIDTH 15.5 % (11.5-14.0); SEGMENTED NEUTROPHILS % (AUTO) 90.1 % (42-78); TOTAL CELLS COUNTED % (AUTO) 100 %; WHITE BLOOD COUNT 16.2 10^3/uL (4.0-10.5)
[2017-05-29 06:29] LABS: ANION GAP 7 (5-19); BLOOD UREA NITROGEN 13 mg/dL (7-20); CALCIUM 8.3 mg/dL (8.4-10.2); CARBON DIOXIDE 34 mmol/L (22-30); CHLORIDE 104 mmol/L (98-107); GLUCOSE 127 mg/dL (75-110); POTASSIUM 3.5 mmol/L (3.6-5.0); SODIUM 144.5 mmol/L (137-145)
[2017-05-29] MEDS: IPRATROPIUM/ALBUTEROL 0.5-2.5 MG/3 ML AMPUL NEB SCH ×2 (07:57→20:16)
[2017-05-29] MEDS ORDERED: DOCUSATE SODIUM 100 MG/10 ML UDC PO SCH (10:00)
[2017-05-29] MEDS: VANCOMYCIN HCL 1,000 MG in DEXTROSE 5%-WATER 250 ML IV SCH ×2 (11:00→21:48)
[2017-05-29] MEDS: FLUCONAZOLE 100 MG TABLET PO SCH (11:00)
[2017-05-29] MEDS: DOCUSATE SODIUM 100 MG CAPSULE PO SCH ×2 (11:01→17:58)
[2017-05-29] MEDS ORDERED: POTASSIUM CHLORIDE 10 MEQ TABLET.SA PO ONE (12:46)
--- NOTE | 2017-05-29 12:46 | PDOC PROGRESS REPORT ---
Subjective Progress Note for:: 05/29/17 Subjective:: Feeling better this morning. Denies abdominal pain. Denies fever or chills. Received Narcan last night and mental status has improved, although patient with underlying dementia. Reason For Visit: SEPSIS, UTI, CELLULITIS, ILIUS, MORBID OBESITY Physical Exam Vital Signs: Temp Pulse Resp BP Pulse Ox 98.7 F 91 14 113/62 99 05/29/17 11:21 05/29/17 11:21 05/29/17 11:21 05/29/17 11:21 05/29/17 11:21 Intake & Output 05/28/17 05/29/17 05/30/17 06:59 06:59 06:59 Intake Total 1013 300 Output Total 700 850 Balance 313 -550 Weight 120.3 kg GEN: NAD, well-developed, well-nourished CV: RRR, NL S1S2 LUNGS: CTA bilaterally ABDOMEN Soft, NT, +BS EXTERMITIES: Mild erythema left lower extremity, slight woman. 2+ bilateral lower extremity edema. NEURO: Alert, oriented to name, moving extremities 4 Results Laboratory Results: 05/29/17 05:48 05/29/17 05:48 05/29/17 05/29/17 05:48 05:48 WBC 16.2 H RBC 3.76 Hgb 10.9 L Hct 33.8 L MCV 90 MCH 28.9 MCHC 32.2 RDW 15.5 H Plt Count 174 Seg Neutrophils % 90.1 H Lymphocytes % 6.0 L Monocytes % 2.9 L Eosinophils % 0.4 Basophils % 0.6 Absolute Neutrophils 14.6 H Absolute Lymphocytes 1.0 Absolute Monocytes 0.5 Absolute Eosinophils 0.1 Absolute Basophils 0.1 Sodium 144.5 Potassium 3.5 L Chloride 104 Carbon Dioxide 34 H Anion Gap 7 BUN 13 Creatinine 0.89 Est GFR ( Amer) > 60 Est GFR (Non-Af Amer) > 60 Glucose 127 H Calcium 8.3 L Impressions: Acute Abdomen Series 05/28/17 22:16 IMPRESSION: 1. Colonic ileus pattern, chronic. Differential diagnosis includes large bowel obstructive process. 2. Mild right colitis pattern. Infectious, inflammatory, neoplastic etiologies are in the differential diagnosis. 3. Mild chronic interstitial lung disease pattern. Differential diagnosis includes atypical pneumonitis and mild pulmonary edema. Abdomen/Pelvis CT 05/29/17 01:07 IMPRESSION: No acute findings. Colonic ileus pattern. Assessment & Plan - Diagnosis (1) SIRS (systemic inflammatory response syndrome) Is this a current diagnosis for this admission?: Yes Plan: Likely secondary to cellulitis and UTI. Continue antibiotics regimen with Zosyn and fluconazole. Continue normal saline and to monitor patient. (2) Cellulitis Qualifiers: Site of cellulitis: unspecified site Qualified Code(s): L03.90 - Cellulitis , unspecified Is this a current diagnosis for this admission?: Yes Plan: Continue antibiotics with Zosyn for now. Also on Fluconazole. (3) Ileus Is this a current diagnosis for this admission?: Yes (4) Urinary tract infection Qualifiers: Urinary tract infection type: site unspecified Hematuria presence: without hematuria Is this a current diagnosis for this admission?: Yes Plan: Continue antibiotic regimen. Follow-up urine and blood cultures results. (5) Acute encephalopathy Plan: Improved. Because likely multifactorial including infection, narcotics. Status post treatment Narcan by admission. We will continue to hold methadone for now. Tylenol as needed for pain.
[2017-05-29] MEDS: PIPERACILLIN SODIUM/TAZOBACTAM 4.5 GM in NORMAL SALINE 100 ML IV SCH ×3 (13:58→23:16)
[2017-05-30] MEDS: HEPARIN SOD (PORCINE) 5,000 UNIT/ML 1 ML SYRINGE SUBCUT SCH ×3 (05:32→21:21)
[2017-05-30] MEDS: PIPERACILLIN SODIUM/TAZOBACTAM 4.5 GM in NORMAL SALINE 100 ML IV SCH ×4 (05:33→23:13)
[2017-05-30 05:48] LABS: ABSOLUTE EOSINOPHILS # (AUTO) 0.2 10^3/uL (0.0-0.6); ABSOLUTE LYMPHOCYTES (AUTO) 0.9 10^3/uL (0.5-4.7); ABSOLUTE MONOCYTES (AUTO) 0.4 10^3/uL (0.1-1.4); ABSOLUTE NEUT (AUTO) 4.7 10^3/uL (1.7-8.2); BASOPHILS % (AUTO) 0.3 % (0-2); EOSINOPHILS % (AUTO) 2.6 % (0-6); HEMATOCRIT 29.8 % (36.0-47.0); HEMOGLOBIN 9.8 g/dL (12.0-15.5); LYMPHOCYTES % (AUTO) 15.2 % (13-45); MEAN CORPUSCULAR HEMOGLOBIN 29.3 pg (27.0-33.4); MEAN CORPUSCULAR HGB CONC 32.7 g/dL (32.0-36.0); MEAN CORPUSCULAR VOLUME 89 fl (80-97); MONOCYTES % (AUTO) 6.8 % (3-13); PLATELET COUNT 156 10^3/uL (150-450); RED BLOOD COUNT 3.34 10^6/uL (3.72-5.28); RED CELL DISTRIBUTION WIDTH 15.6 % (11.5-14.0); SEGMENTED NEUTROPHILS % (AUTO) 75.1 % (42-78); TOTAL CELLS COUNTED % (AUTO) 100 %; WHITE BLOOD COUNT 6.2 10^3/uL (4.0-10.5)
[2017-05-30 06:03] LABS: ANION GAP 7 (5-19); BLOOD UREA NITROGEN 8 mg/dL (7-20); CALCIUM 8.7 mg/dL (8.4-10.2); CARBON DIOXIDE 32 mmol/L (22-30); CHLORIDE 104 mmol/L (98-107); GLUCOSE 84 mg/dL (75-110); POTASSIUM 3.2 mmol/L (3.6-5.0); SODIUM 143.2 mmol/L (137-145)
[2017-05-30] MEDS: IPRATROPIUM/ALBUTEROL 0.5-2.5 MG/3 ML AMPUL NEB SCH ×2 (08:00→21:06)
--- NOTE | 2017-05-30 08:40 | RADIOLOGY REPORT (SQ) ---
EXAM DESCRIPTION: KUB/ABDOMEN (SINGLE VIEW) COMPLETED DATE/TIME: 05/30/2017 8:14 am REASON FOR STUDY: Ileus COMPARISON: CT abdomen pelvis 05/29/[id number] abdomen 12/02/2016 NUMBER OF VIEWS: One view. TECHNIQUE: Supine radiographic image of the abdomen acquired. LIMITATIONS: None. FINDINGS: BOWEL GAS PATTERN: Gaseous distension of colon out of proportion to small bowel and stomac h. Question colonic ileus. CALCIFICATIONS: No suspicious calcifications. SOFT TISSUES: No gross mass or suggestion of organomegaly. HARDWARE: Periumbilical anterior abdominal wall surgical emanuel. BONES: Advanced arthritis both hips OTHER: No other significant finding. IMPRESSION: Gaseous distension of colon out of proportion to small bowel and stomach, question colon ic ileus TECHNICAL DOCUMENTATION: JOB ID: [id number] [employer]- All Rights Reserved Reading location - IP/workstation name: [email or web address]
[2017-05-30] MEDS: FLUCONAZOLE 100 MG TABLET PO SCH (10:10)
[2017-05-30] MEDS: DOCUSATE SODIUM 100 MG CAPSULE PO SCH ×2 (10:10→17:27)
[2017-05-30] MEDS: VANCOMYCIN HCL 1,000 MG in DEXTROSE 5%-WATER 250 ML IV SCH ×2 (10:10→21:22)
--- NOTE | 2017-05-30 17:04 | PDOC PROGRESS REPORT ---
Subjective Progress Note for:: 05/30/17 Subjective:: Feeling better this morning. Denies abdominal pain, no nausea or vomiting. Patient mostly bedbound. Denies fever or chills. Tolerating clear liquid diet. Reason For Visit: SEPSIS, UTI, CELLULITIS, ILIUS, MORBID OBESITY Physical Exam Vital Signs: Temp Pulse Resp BP Pulse Ox 98.6 F 98 18 128/86 H 97 05/30/17 12:27 05/30/17 14:00 05/30/17 12:27 05/30/17 12:27 05/30/17 12:27 Intake & Output 05/29/17 05/30/17 05/31/17 06:59 06:59 06:59 Intake Total 1013 5038 0 Output Total 700 2750 1500 Balance 313 2288 -1500 Weight 120.3 kg 118.2 kg GEN: NAD, well-developed, well-nourished CV: RRR, NL S1S2 LUNGS: CTA bilaterally ABDOMEN Soft, NT, +BS EXTERMITIES: Mild erythema left lower extremity, slight erytherma but improving. 2+ bilateral lower extremity edema. NEURO: Alert, oriented to name, moving extremities 4 Results Laboratory Results: 05/30/17 05:22 05/30/17 05:22 05/30/17 05/30/17 05:22 05:22 WBC 6.2 RBC 3.34 L Hgb 9.8 L Hct 29.8 L MCV 89 MCH 29.3 MCHC 32.7 RDW 15.6 H Plt Count 156 Seg Neutrophils % 75.1 Lymphocytes % 15.2 Monocytes % 6.8 Eosinophils % 2.6 Basophils % 0.3 Absolute Neutrophils 4.7 Absolute Lymphocytes 0.9 Absolute Monocytes 0.4 Absolute Eosinophils 0.2 Absolute Basophils 0.0 Sodium 143.2 Potassium 3.2 L Chloride 104 Carbon Dioxide 32 H Anion Gap 7 BUN 8 Creatinine 0.67 Est GFR ( Amer) > 60 Est GFR (Non-Af Amer) > 60 Glucose 84 Calcium 8.7 Magnesium 2.1 Impressions: Acute Abdomen Series 05/28/17 22:16 IMPRESSION: 1. Colonic ileus pattern, chronic. Differential diagnosis includes large bowel obstructive process. 2. Mild right colitis pattern. Infectious, inflammatory, neoplastic etiologies are in the differential diagnosis. 3. Mild chronic interstitial lung disease pattern. Differential diagnosis includes atypical pneumonitis and mild pulmonary edema. Abdomen/Pelvis CT 05/29/17 01:07 IMPRESSION: No acute findings. Colonic ileus pattern. KUB X-Ray 05/30/17 00:00 IMPRESSION: Gaseous distension of colon out of proportion to small bowel and stomach, question colonic ileus Assessment & Plan - Diagnosis (1) SIRS (systemic inflammatory response syndrome) Is this a current diagnosis for this admission?: Yes Plan: Likely secondary to cellulitis and UTI. Urine culture growing C albicans/C Dubliniesis cultures negative 24 hours. Will continue antibiotics regimen with Zosyn and fluconazole for now. Continue normal saline and to monitor patient. Patient uses diaper as outpatient. Wants to hold off DC Woods. Consider DC Woods in a.m. (2) Cellulitis Qualifiers: Site of cellulitis: unspecified site Qualified Code(s): L03.90 - Cellulitis , unspecified Is this a current diagnosis for this admission?: Yes Plan: Leukocytosis has markedly improved today. Continue antibiotics with Zosyn for now. Continue to follow blood culture. (3) Ileus Is this a current diagnosis for this admission?: Yes Plan: Imaging studies suspicious for ileus, patient tolerating p.o., passing gas and moving her bowel. We will institute trial of advancing diet. (4) Urinary tract infection Qualifiers: Urinary tract infection type: site unspecified Hematuria presence: without hematuria Qualified Code(s): N39.0 - Urinary tract infection, site not specified Is this a current diagnosis for this admission?: Yes Plan: Continue antibiotic regimen. Continue to follow urine and blood cultures results. (5) Acute encephalopathy Plan: Improved. This was likely multifactorial including infection, narcotics. Status post treatment Narcan by admission. We will continue to hold methadone for now. Tylenol as needed for pain. (6) Hypokalemia Is this a current diagnosis for this admission?: Yes Plan: Potassium is 3.2 today. Will replete with KCl 40 M EQ p.o. 1. Follow-up Chem- 7 in a.m.
[2017-05-30] MEDS ORDERED: POTASSIUM CHLORIDE 10 MEQ TABLET.SA PO ONE (18:00)
[2017-05-31] MEDS: PIPERACILLIN SODIUM/TAZOBACTAM 4.5 GM in NORMAL SALINE 100 ML IV SCH ×3 (05:23→17:23)
[2017-05-31] MEDS: HEPARIN SOD (PORCINE) 5,000 UNIT/ML 1 ML SYRINGE SUBCUT SCH ×3 (05:25→21:54)
[2017-05-31 06:14] LABS: ABSOLUTE EOSINOPHILS # (AUTO) 0.3 10^3/uL (0.0-0.6); ABSOLUTE LYMPHOCYTES (AUTO) 0.8 10^3/uL (0.5-4.7); ABSOLUTE MONOCYTES (AUTO) 0.4 10^3/uL (0.1-1.4); ABSOLUTE NEUT (AUTO) 3.3 10^3/uL (1.7-8.2); BASOPHILS % (AUTO) 0.6 % (0-2); EOSINOPHILS % (AUTO) 5.7 % (0-6); HEMATOCRIT 29.5 % (36.0-47.0); HEMOGLOBIN 9.8 g/dL (12.0-15.5); LYMPHOCYTES % (AUTO) 17.6 % (13-45); MEAN CORPUSCULAR HEMOGLOBIN 29.6 pg (27.0-33.4); MEAN CORPUSCULAR HGB CONC 33.3 g/dL (32.0-36.0); MEAN CORPUSCULAR VOLUME 89 fl (80-97); MONOCYTES % (AUTO) 7.7 % (3-13); PLATELET COUNT 167 10^3/uL (150-450); RED BLOOD COUNT 3.31 10^6/uL (3.72-5.28); RED CELL DISTRIBUTION WIDTH 15.2 % (11.5-14.0); SEGMENTED NEUTROPHILS % (AUTO) 68.4 % (42-78); TOTAL CELLS COUNTED % (AUTO) 100 %; WHITE BLOOD COUNT 4.8 10^3/uL (4.0-10.5)
[2017-05-31 07:10] LABS: ANION GAP 11 (5-19); BLOOD UREA NITROGEN 4 mg/dL (7-20); CALCIUM 8.8 mg/dL (8.4-10.2); CARBON DIOXIDE 29 mmol/L (22-30); CHLORIDE 104 mmol/L (98-107); GLUCOSE 83 mg/dL (75-110); POTASSIUM 3.3 mmol/L (3.6-5.0); SODIUM 143.6 mmol/L (137-145)
[2017-05-31] MEDS: IPRATROPIUM/ALBUTEROL 0.5-2.5 MG/3 ML AMPUL NEB SCH ×2 (09:01→20:02)
[2017-05-31] MEDS: DOCUSATE SODIUM 100 MG CAPSULE PO SCH ×2 (09:14→17:23)
[2017-05-31] MEDS: FLUCONAZOLE 100 MG TABLET PO SCH (09:14)
[2017-05-31] MEDS: VANCOMYCIN HCL 1,000 MG in DEXTROSE 5%-WATER 250 ML IV SCH ×2 (10:10→21:53)
[2017-05-31 10:31] LABS: VANCOMYCIN,TROUGH 13.6 ug/mL (5.0-20.0)
--- NOTE | 2017-05-31 15:43 | PDOC PROGRESS REPORT ---
Subjective Progress Note for:: 05/31/17 Subjective:: Feels continuing to improve. Denies abdominal pain, no nausea or vomiting. Patient mostly bedbound. Denies fever or chills. Tolerating clear liquid diet. Reason For Visit: SEPSIS, UTI, CELLULITIS, ILIUS, MORBID OBESITY Physical Exam Vital Signs: Temp Pulse Resp BP Pulse Ox 97.2 F 103 H 15 137/82 H 97 05/31/17 11:53 05/31/17 14:00 05/31/17 11:53 05/31/17 11:53 05/31/17 11:53 Intake & Output 05/30/17 05/31/17 06/01/17 06:59 06:59 06:59 Intake Total 5038 1659 200 Output Total 2750 4850 900 Balance 6418 -6173 -610 Weight 118.2 kg 117.3 kg GEN: NAD, well-developed, well-nourished CV: RRR, NL S1S2 LUNGS: CTA bilaterally ABDOMEN Soft, NT, +BS EXTERMITIES: Erythema left lower extremity, improving. 2+ bilateral lower extremity edema. NEURO: Alert, oriented x 3 Results Laboratory Results: 05/31/17 05:23 05/31/17 05:23 05/31/17 05/31/17 05:23 05:23 WBC 4.8 RBC 3.31 L Hgb 9.8 L Hct 29.5 L MCV 89 MCH 29.6 MCHC 33.3 RDW 15.2 H Plt Count 167 Seg Neutrophils % 68.4 Lymphocytes % 17.6 Monocytes % 7.7 Eosinophils % 5.7 Basophils % 0.6 Absolute Neutrophils 3.3 Absolute Lymphocytes 0.8 Absolute Monocytes 0.4 Absolute Eosinophils 0.3 Absolute Basophils 0.0 Sodium 143.6 Potassium 3.3 L Chloride 104 Carbon Dioxide 29 Anion Gap 11 BUN 4 L Creatinine 0.63 Est GFR ( Amer) > 60 Est GFR (Non-Af Amer) > 60 Glucose 83 Calcium 8.8 Impressions: Acute Abdomen Series 05/28/17 22:16 IMPRESSION: 1. Colonic ileus pattern, chronic. Differential diagnosis includes large bowel obstructive process. 2. Mild right colitis pattern. Infectious, inflammatory, neoplastic etiologies are in the differential diagnosis. 3. Mild chronic interstitial lung disease pattern. Differential diagnosis includes atypical pneumonitis and mild pulmonary edema. Abdomen/Pelvis CT 05/29/17 01:07 IMPRESSION: No acute findings. Colonic ileus pattern. KUB X-Ray 05/30/17 00:00 IMPRESSION: Gaseous distension of colon out of proportion to small bowel and stomach, question colonic ileus Assessment & Plan - Diagnosis (1) SIRS (systemic inflammatory response syndrome) Is this a current diagnosis for this admission?: Yes (2) Cellulitis Qualifiers: Site of cellulitis: unspecified site Qualified Code(s): L03.90 - Cellulitis , unspecified Is this a current diagnosis for this admission?: Yes (3) Ileus Is this a current diagnosis for this admission?: Yes (4) Urinary tract infection Qualifiers: Urinary tract infection type: site unspecified Hematuria presence: without hematuria Qualified Code(s): N39.0 - Urinary tract infection, site not specified Is this a current diagnosis for this admission?: Yes (6) Hypokalemia Is this a current diagnosis for this admission?: Yes - Plan Summary Plan Summary: (1) SIRS (systemic inflammatory response syndrome) Is this a current diagnosis for this admission?: Yes Plan: Likely secondary to cellulitis and UTI. Urine culture growing C albicans/C Dubliniesis and cultures negative 48 hours. Will continue abx with vanco and zosyn for now, continue fluconazole. (2) Cellulitis Qualifiers: Site of cellulitis: unspecified site Qualified Code(s): L03.90 - Cellulitis , unspecified Is this a current diagnosis for this admission?: Yes Plan: Leukocytosis has markedly improved today. Continue antibiotics with Zosyn and vanco for now. Continue to follow blood culture. (3) Possible Ileus Is this a current diagnosis for this admission?: Yes Plan: Imaging studies suspicious for ileus, but patient tolerating p.o., passing gas and moving her bowel. (4) Urinary tract infection Qualifiers: Urinary tract infection type: site unspecified Hematuria presence: without hematuria Qualified Code(s): N39.0 - Urinary tract infection, site not specified Is this a current diagnosis for this admission?: Yes Plan: Continue antibiotic regimen. Continue to follow urine and blood cultures results. (5) Acute encephalopathy Plan: Improved. This was likely multifactorial including infection, narcotics. Status post treatment with Narcan by admission. We will continue to hold methadone for now. Tylenol as needed for pain. (6) Hypokalemia Is this a current diagnosis for this admission?: Yes Plan: Potassium is 3.3 today. Will replete with KCl 40 M EQ p.o. 1. Follow-up Chem- 7 in a.m.
[2017-05-31] MEDS ORDERED: POTASSIUM CHLORIDE 10 MEQ TABLET.SA PO ONE (16:00)
[2017-06-01] MEDS: PIPERACILLIN SODIUM/TAZOBACTAM 4.5 GM in NORMAL SALINE 100 ML IV SCH ×3 (00:29→12:04)
[2017-06-01] MEDS: HEPARIN SOD (PORCINE) 5,000 UNIT/ML 1 ML SYRINGE SUBCUT SCH ×3 (05:55→22:09)
[2017-06-01 06:19] LABS: ABSOLUTE EOSINOPHILS # (AUTO) 0.4 10^3/uL (0.0-0.6); ABSOLUTE LYMPHOCYTES (AUTO) 0.9 10^3/uL (0.5-4.7); ABSOLUTE MONOCYTES (AUTO) 0.4 10^3/uL (0.1-1.4); ABSOLUTE NEUT (AUTO) 2.6 10^3/uL (1.7-8.2); BASOPHILS % (AUTO) 0.7 % (0-2); EOSINOPHILS % (AUTO) 8.4 % (0-6); HEMATOCRIT 30.7 % (36.0-47.0); HEMOGLOBIN 10.2 g/dL (12.0-15.5); LYMPHOCYTES % (AUTO) 21.7 % (13-45); MEAN CORPUSCULAR HEMOGLOBIN 29.5 pg (27.0-33.4); MEAN CORPUSCULAR HGB CONC 33.2 g/dL (32.0-36.0); MEAN CORPUSCULAR VOLUME 89 fl (80-97); MONOCYTES % (AUTO) 8.6 % (3-13); PLATELET COUNT 192 10^3/uL (150-450); RED BLOOD COUNT 3.45 10^6/uL (3.72-5.28); RED CELL DISTRIBUTION WIDTH 15.3 % (11.5-14.0); SEGMENTED NEUTROPHILS % (AUTO) 60.6 % (42-78); TOTAL CELLS COUNTED % (AUTO) 100 %; WHITE BLOOD COUNT 4.2 10^3/uL (4.0-10.5)
[2017-06-01 06:50] LABS: ANION GAP 9 (5-19); BLOOD UREA NITROGEN 3 mg/dL (7-20); CARBON DIOXIDE 30 mmol/L (22-30); CHLORIDE 105 mmol/L (98-107); GLUCOSE 87 mg/dL (75-110); POTASSIUM 3.3 mmol/L (3.6-5.0); SODIUM 144.3 mmol/L (137-145)
[2017-06-01] MEDS ORDERED: POTASSIUM CHLORIDE 10 MEQ TABLET.SA PO ONE (07:44)
[2017-06-01] MEDS: IPRATROPIUM/ALBUTEROL 0.5-2.5 MG/3 ML AMPUL NEB SCH ×2 (08:51→19:58)
[2017-06-01] MEDS: DOCUSATE SODIUM 100 MG CAPSULE PO SCH (09:42)
[2017-06-01] MEDS: VANCOMYCIN HCL 1,000 MG in DEXTROSE 5%-WATER 250 ML IV SCH (09:49)
[2017-06-01] MEDS ORDERED: POLYVINYL ALCOHOL 1.4% OPH SOLN 15 ML OU PRN (11:44)
[2017-06-01] MEDS ORDERED: FLUTICASONE NASAL SPRAY 50 MCG/SPRY 120 SPRAY/16 GM NASL PRN (11:44)
[2017-06-01] MEDS ORDERED: DOCUSATE SODIUM 100 MG CAPSULE PO PRN (11:54)
--- NOTE | 2017-06-01 12:33 | PDOC PROGRESS REPORT ---
Subjective Progress Note for:: 06/01/17 Subjective:: The patient is a 61-year-old female with a past medical history of advanced dementia, hypertension, chronic pain on methadone, bedbound at baseline who is a [facility] and was admitted on 05/29/17 for left lower leg cellulitis and UTI. The patient is seen on morning rounds. She is found sitting upright in bed on room air. She is fully conversational and speaking full sentences. She states that she is feeling much better today and is asking if I can resume her home medications. She seems to be quite lucid at the moment and is able to discuss the names and doses of her medications. She states that she feels that she will be well enough to return to [facility] within the next day or 2. Her only concern at the present is frequent bowel movements. She denies abdominal pain, nausea and vomiting. She tolerated clear liquids today. She has no other questions or concerns. Reason For Visit: SEPSIS, UTI, CELLULITIS, ILIUS, MORBID OBESITY Physical Exam Vital Signs: Temp Pulse Resp BP Pulse Ox 98.2 F 94 18 145/88 H 96 06/01/17 07:40 06/01/17 08:51 06/01/17 08:51 06/01/17 07:40 06/01/17 08:51 Intake & Output 05/31/17 06/01/17 06/02/17 06:59 06:59 06:59 Intake Total 1659 1966 Output Total 4850 4300 Balance -3191 -2334 Weight 117.3 kg 115.3 kg General appearance: PRESENT: no acute distress, obese, well-developed, well- nourished Head exam: PRESENT: atraumatic, normocephalic Eye exam: PRESENT: conjunctiva pink, EOMI, PERRLA. ABSENT: scleral icterus Ear exam: PRESENT: normal external ear exam Mouth exam: PRESENT: moist, tongue midline Neck exam: ABSENT: carotid bruit, JVD, lymphadenopathy, thyromegaly Respiratory exam: PRESENT: clear to auscultation marko, symmetrical, unlabored. ABSENT: rales, rhonchi, wheezes Cardiovascular exam: PRESENT: RRR, +S1, +S2. ABSENT: diastolic murmur, rubs, systolic murmur Pulses: PRESENT: normal dorsalis pedis pul Vascular exam: PRESENT: normal capillary refill GI/Abdominal exam: PRESENT: normal bowel sounds, soft. ABSENT: distended, guarding, mass, organolmegaly, rebound, tenderness Rectal exam: PRESENT: deferred Extremities exam: PRESENT: full ROM, +2 edema - Bilateral lower extremities, other - Erythema to LLE. ABSENT: calf tenderness, clubbing, pedal edema Neurological exam: PRESENT: alert, awake, oriented to person, oriented to place , oriented to time, oriented to situation, CN II-XII grossly intact. ABSENT: motor sensory deficit Psychiatric exam: PRESENT: appropriate affect, normal mood. ABSENT: homicidal ideation, suicidal ideation Skin exam: PRESENT: dry, intact, warm. ABSENT: cyanosis, rash Results Laboratory Results: 06/01/17 05:46 06/01/17 05:46 06/01/17 06/01/17 05:46 05:46 WBC 4.2 RBC 3.45 L Hgb 10.2 L Hct 30.7 L MCV 89 MCH 29.5 MCHC 33.2 RDW 15.3 H Plt Count 192 Seg Neutrophils % 60.6 Lymphocytes % 21.7 Monocytes % 8.6 Eosinophils % 8.4 H Basophils % 0.7 Absolute Neutrophils 2.6 Absolute Lymphocytes 0.9 Absolute Monocytes 0.4 Absolute Eosinophils 0.4 Absolute Basophils 0.0 Sodium 144.3 Potassium 3.3 L Chloride 105 Carbon Dioxide 30 Anion Gap 9 BUN 3 L Creatinine 0.71 Est GFR ( Amer) > 60 Est GFR (Non-Af Amer) > 60 Glucose 87 Calcium 9.0 Impressions: Acute Abdomen Series 05/28/17 22:16 IMPRESSION: 1. Colonic ileus pattern, chronic. Differential diagnosis includes large bowel obstructive process. 2. Mild right colitis pattern. Infectious, inflammatory, neoplastic etiologies are in the differential diagnosis. 3. Mild chronic interstitial lung disease pattern. Differential diagnosis includes atypical pneumonitis and mild pulmonary edema. Abdomen/Pelvis CT 05/29/17 01:07 IMPRESSION: No acute findings. Colonic ileus pattern. KUB X-Ray 05/30/17 00:00 IMPRESSION: Gaseous distension of colon out of proportion to small bowel and stomach, question colonic ileus Assessment & Plan - Diagnosis (1) Sepsis Is this a current diagnosis for this admission?: Yes Plan: Improved. Secondary to left lower extremity cellulitis and UTI as evidenced by ABC of 16.2, fever of 103.2, heart rate 126, respiratory rate of 29, and worsening of mental status. Blood cultures have no growth to date. Urine culture demonstrated Blanca. The patient has been admitted to [facility] [place] on continuous cardiac telemetry. She was provided IV fluid resuscitation and empirically placed on vancomycin and Zosyn. We will transition to Bactrim today. Supplemental oxygen was provided as needed to maintain oxygen saturations greater than 90% (2) Cellulitis Qualifiers: Site of cellulitis: other site Qualified Code(s): L03.818 - Cellulitis of other sites Is this a current diagnosis for this admission?: Yes Plan: Cellulitis noted to left lower extremity upon admission appears to be improving. Blood cultures have no growth to date. The patient was empirically placed on vancomycin and Zosyn; she is received 4 days of this antibiotic combination. She has no history of MRSA, however, does live in a long-term care facility and so is at risk. We will transition to Bactrim today. (3) Ileus Is this a current diagnosis for this admission?: Yes Plan: Imaging studies were suspicious for ileus, but the patient is tolerating clear liquids, passing gas, and having regular bowel movements. Will advance diet as tolerated. (4) Urinary tract infection Qualifiers: Urinary tract infection type: site unspecified Hematuria presence: without hematuria Qualified Code(s): N39.0 - Urinary tract infection, site not specified Is this a current diagnosis for this admission?: Yes Plan: Blood cultures have no growth to date. Urine culture showed Blanca. Previous urine cultures are reviewed; E. coli. The patient was empirically placed on vancomycin and Zosyn upon admission. She is now afebrile, leukocytosis is resolved, heart rate and blood pressure are normal. Will transition to p.o. Bactrim based upon previous urine cultures. The patient did receive 3 days of Diflucan. (5) Acute encephalopathy Is this a current diagnosis for this admission?: Yes Plan: Resolved. This was likely multifactorial related to infection, narcotics, and polypharmacy. She did have to receive Narcan on admission. We will transition to Bactrim today and observe for signs of worsening infection. We have also resumed a portion of her home medications: Metoprolol, simvastatin , Cymbalta, Flonase, LiquiTears and vitamin D supplement. We will continue to hold methadone as the patient has had minimal report of pain. Also holding Flexeril, Percocet, and amitriptyline. (6) Hypokalemia Is this a current diagnosis for this admission?: Yes Plan: Potassium is 3.3 today; likely secondary to poor p.o. intake. Anticipate improvement with advancing diet. Will replace with KCl 40 MEQ p.o. 1. (7) Opiate dependence, continuous Is this a current diagnosis for this admission?: Yes Plan: The patient did require Narcan upon admission. We are holding her methadone and oxycodone without report of pain or evidence of withdrawal at this time. - Time Time Spent with patient: 35 or more minutes Anticipated discharge: SNF - Patient is a resident of [facility] Within: within 24 hours
[2017-06-01] MEDS: SULFAMETHOXAZOLE/TRIMETHOPRIM 800-160 MG TABLET PO SCH (17:45)
[2017-06-01] MEDS ORDERED: PIPERACILLIN SODIUM/TAZOBACTAM 4.5 GM in NORMAL SALINE 100 ML IV SCH (18:00)
[2017-06-01] MEDS ORDERED: SIMVASTATIN 40 MG TABLET PO SCH (22:00)
[2017-06-01] MEDS: METOPROLOL TARTRATE 25 MG TABLET PO SCH (22:09)
[2017-06-02] MEDS: SULFAMETHOXAZOLE/TRIMETHOPRIM 800-160 MG TABLET PO SCH ×2 (05:53→17:52)
[2017-06-02] MEDS: HEPARIN SOD (PORCINE) 5,000 UNIT/ML 1 ML SYRINGE SUBCUT SCH ×2 (05:54→14:27)
[2017-06-02] MEDS ORDERED: LANSOPRAZOLE 15 MG TAB.RAP.DR PO SCH (06:00)
[2017-06-02 06:27] LABS: HEMATOCRIT 30.7 % (36.0-47.0); HEMOGLOBIN 10.1 g/dL (12.0-15.5); MEAN CORPUSCULAR HEMOGLOBIN 29.4 pg (27.0-33.4); MEAN CORPUSCULAR HGB CONC 32.9 g/dL (32.0-36.0); MEAN CORPUSCULAR VOLUME 89 fl (80-97); PLATELET COUNT 178 10^3/uL (150-450); RED BLOOD COUNT 3.44 10^6/uL (3.72-5.28); RED CELL DISTRIBUTION WIDTH 15.6 % (11.5-14.0); WHITE BLOOD COUNT 5.3 10^3/uL (4.0-10.5)
[2017-06-02 07:02] LABS: ANION GAP 9 (5-19); BLOOD UREA NITROGEN 5 mg/dL (7-20); CALCIUM 8.8 mg/dL (8.4-10.2); CARBON DIOXIDE 28 mmol/L (22-30); CHLORIDE 106 mmol/L (98-107); GLUCOSE 87 mg/dL (75-110); POTASSIUM 3.7 mmol/L (3.6-5.0); SODIUM 142.5 mmol/L (137-145)
[2017-06-02] MEDS: IPRATROPIUM/ALBUTEROL 0.5-2.5 MG/3 ML AMPUL NEB SCH (09:07)
[2017-06-02] MEDS ORDERED: DULOXETINE HCL 30 MG CAPSULE.DR PO SCH (10:00)
[2017-06-02] MEDS ORDERED: ERGOCALCIFEROL (VITAMIN D2) 50000 UNIT (1.25 MG) CAPSULE PO SCH (10:00)
[2017-06-02] MEDS: LACTOBACILLUS ACIDOPHILUS 250 MG TAB PO SCH ×2 (10:41→17:52)
[2017-06-02] MEDS: METOPROLOL TARTRATE 25 MG TABLET PO SCH (10:41)
--- NOTE | 2017-06-02 12:00 | PDOC TRANSFER SUMMARY ---
General - Admit/Disc Date/PCP Admission Date/Primary Care Provider: 05/29/17 02:31 Discharge Date: 06/02/17 - Discharge Diagnosis (1) Sepsis Is this a current diagnosis for this admission?: Yes Summary: Resolved. Secondary to left lower leg cellulitis and urinary tract infection colonized with Blanca. She received aggressive IV fluid resuscitation and was empirically placed on vancomycin and Zosyn. Cultures are negative, urine culture grew Blanca. The patient's systemic symptoms rapidly improved. The patient was transitioned to p.o. Bactrim for discharge. (2) Cellulitis Is this a current diagnosis for this admission?: Yes Summary: Improving. Blood cultures are negative. Patient will complete a course of p.o. Bactrim. (3) Ileus Is this a current diagnosis for this admission?: Yes Summary: Imaging studies were suspicious for ileus, but the patient was capable of tolerating clear liquids, passing gas and having regular bowel movements. Her diet was successfully advanced to a cardiac diet. (4) Urinary tract infection Is this a current diagnosis for this admission?: Yes Summary: Urinalysis positive for urinary tract infection. Blood cultures have no growth to date. Urine culture shows Blanca. She did receive a 3 day course of Diflucan. She was empirically placed on vancomycin and Zosyn. Her leukocytosis has resolved, heart rate and blood pressure have normalized, the patient is afebrile. She is transitioned to p.o. Bactrim based upon a previous urine culture sensitivities. (5) Acute encephalopathy Is this a current diagnosis for this admission?: Yes Summary: Resolved. This is likely multifactorial related to infection, narcotics, and polypharmacy. Of note, the patient did require narcotic upon admission. The patient's narcotic medications were held during this admission; she did not receive Flexeril, oxycodone, or methadone. Her pain was adequately managed with Tylenol and repositioning. Recommend discontinuation of opiate medications. (6) Hypokalemia Is this a current diagnosis for this admission?: Yes Summary: Secondary to GI losses (loose stools). Improved with p.o. intake. (7) Opiate dependence, continuous Is this a current diagnosis for this admission?: Yes - Additional Information Resuscitation Status: Do Not Resuscitate Discharge Diet: Cardiac Discharge Activity: Activity As Tolerated, Balance Activity w/Rest Prescriptions: Lactobacillus Acidophilus [Bacid 250 mg Tablet] 250 mg PO BID #30 tab Sulfamethoxazole/Trimethoprim [Septra-Ds 800-160 mg Tablet] 1 tab PO Q12 #14 tablet Home Medications: Acetaminophen [Tylenol 8 Hour] 650 mg PO Q4HP PRN 05/29/17 Albuterol Sulfate [Proair HFA] 1 puff IH QIDP PRN 05/29/17 Amitriptyline HCl [Elavil 100 mg Tablet] 150 mg PO QHS 05/29/17 Bisacodyl [Dulcolax 5 mg Tablet] 5 mg PO MOFR 05/29/17 Clotrimazole/Betamethasone Dip [Lotrisone Cream] 1 applic TOP BIDP PRN 05/29/17 Duloxetine HCl [Cymbalta] 30 mg PO DAILY 05/29/17 Ergocalciferol (Vitamin D2) [Vitamin D2] 50,000 unit PO Q7D 05/29/17 Fesoterodine Fumarate [Toviaz] 8 mg PO QHS 05/29/17 Fluticasone Propionate [Flonase Nasal [place] 50 Mcg/[place] 16 gm] 1 spray NASL BIDP PRN 05/29/17 Guaifenesin [Robitussin Syrup 200 mg/10 ml Ud Cup] 10 ml PO Q4HP PRN 05/29/17 Metoprolol Tartrate [Lopressor 25 mg Tablet] 25 mg PO Q12 05/29/17 Omeprazole 20 mg PO DAILY 05/29/17 Polyvinyl Alcohol [Liquitears] 1 drop OU DAILYP PRN 05/29/17 Simvastatin [Zocor 40 mg Tablet] 40 mg PO QHS 05/29/17 Acetaminophen [Tylenol 325 mg Tablet] 650 mg PO Q4HP PRN tablet 06/02/17 Docusate Sodium [Colace 100 mg Capsule] 100 mg PO BIDP PRN capsule 06/02/17 Lactobacillus Acidophilus [Bacid 250 mg Tablet] 250 mg PO BID #30 tab 06/02/17 Sulfamethoxazole/Trimethoprim [Septra-Ds 800-160 mg Tablet] 1 tab PO Q12 #14 tablet 06/02/17 History of Present Illness Admission Date/PCP: 05/29/17 02:31 History of Present Illness: MARTIR CALIX is a 61 year old long-term [facility] resident with a past medical history of profound dementia, hypertension, chronic pain on methadone is referred to the emergency room with hypotension, fever, left leg erythema and delirium. In the emergency room she is found to have a blood pressure of 80 /50 and a temperature of 103.5. She is arousable but unable to provide history. CT imaging of the abdomen revealed ileus and constipation, urinalysis shows significant pyuria. She started on empiric antibiotics and referred to the hospitalist for admission. Hospital Course Hospital Course: The patient was admitted with sepsis secondary to left lower leg cellulitis and urinary tract infection. She was empirically placed on IV vancomycin and Zosyn. Blood cultures are negative to date. Urine culture showed Blanca. She received 3 days of Diflucan therapy. She has been transitioned from IV antibiotics to p.o. Bactrim and was observed for an additional day. She remains afebrile, normal blood pressures and heart rate, and normal WBC count. At time of discharge, the patient is alert and oriented 4, vital signs are stable, maintaining oxygen saturation on room air, tolerating a regular diet, and pain-free without opiate medications during this admission. She is provided prescriptions for Bactrim and lactobacillus. She is discharged to [facility] where she is a long-term resident. Physical Exam Vital Signs: Temp Pulse Resp BP Pulse Ox 99.3 F 118 H 18 134/75 H 97 06/02/17 11:04 06/02/17 11:04 06/02/17 11:04 06/02/17 11:04 06/02/17 11:04 Intake & Output 06/01/17 06/02/17 06/03/17 06:59 06:59 06:59 Intake Total 1966 1331 375 Output Total 4300 1825 1100 Balance -2334 -494 -725 Weight 115.3 kg 113.9 kg General appearance: PRESENT: no acute distress, obese, well-developed, well- nourished Head exam: PRESENT: atraumatic, normocephalic Eye exam: PRESENT: conjunctiva pink, EOMI, PERRLA. ABSENT: scleral icterus Ear exam: PRESENT: normal external ear exam Mouth exam: PRESENT: moist, tongue midline Neck exam: ABSENT: carotid bruit, JVD, lymphadenopathy, thyromegaly Respiratory exam: PRESENT: clear to auscultation marko, symmetrical, unlabored. ABSENT: rales, rhonchi, wheezes Cardiovascular exam: PRESENT: RRR, +S1, +S2. ABSENT: diastolic murmur, rubs, systolic murmur Pulses: PRESENT: normal dorsalis pedis pul Vascular exam: PRESENT: normal capillary refill GI/Abdominal exam: PRESENT: normal bowel sounds, soft. ABSENT: distended, guarding, mass, organolmegaly, rebound, tenderness Rectal exam: PRESENT: deferred Extremities exam: PRESENT: full ROM. ABSENT: calf tenderness, clubbing, pedal edema Neurological exam: PRESENT: alert, awake, oriented to person, oriented to place , oriented to time, oriented to situation, CN II-XII grossly intact. ABSENT: motor sensory deficit Psychiatric exam: PRESENT: appropriate affect, normal mood. ABSENT: homicidal ideation, suicidal ideation Skin exam: PRESENT: dry, intact, warm. ABSENT: cyanosis, rash Results Laboratory Results: 06/02/17 05:19 06/02/17 05:19 06/02/17 06/02/17 05:19 05:19 WBC 5.3 RBC 3.44 L Hgb 10.1 L Hct 30.7 L MCV 89 MCH 29.4 MCHC 32.9 RDW 15.6 H Plt Count 178 Sodium 142.5 Potassium 3.7 Chloride 106 Carbon Dioxide 28 Anion Gap 9 BUN 5 L Creatinine 0.68 Est GFR ( Amer) > 60 Est GFR (Non-Af Amer) > 60 Glucose 87 Calcium 8.8 Impressions: Acute Abdomen Series 05/28/17 22:16 IMPRESSION: 1. Colonic ileus pattern, chronic. Differential diagnosis includes large bowel obstructive process. 2. Mild right colitis pattern. Infectious, inflammatory, neoplastic etiologies are in the differential diagnosis. 3. Mild chronic interstitial lung disease pattern. Differential diagnosis includes atypical pneumonitis and mild pulmonary edema. Abdomen/Pelvis CT 05/29/17 01:07 IMPRESSION: No acute findings. Colonic ileus pattern. KUB X-Ray 05/30/17 00:00 IMPRESSION: Gaseous distension of colon out of proportion to small bowel and stomach, question colonic ileus Transfer Plan - Disposition Transfer Plan: Discharge to [facility] with the patient is a long-term care resident. - Time Spent with Patient Time spent with patient: Less than 30 Minutes Qualifiers - * PATEINT BEING DISCHARGED WITH ANY OF THE FOLLOWING DIAGNOSIS?: No
[2017-06-02 18:09] VITALS: BP 141/90
== END 2017-06-02 19:38 | DRG 871 ==
LOC: ER 21:49 → EH 05-29 02:31 → 3W 05-29 03:34
PROVIDERS: ADMIT Internal Medicine; ATTEND Internal Medicine
PROC: 3E0F73Z Introduction of Anti-inflammatory into Respiratory Tract, Via Natural or Artificial Opening (ICD-10-PCS; principal; 2017-05-29)
DX: A41.9 Sepsis, unspecified organism (principal); G93.41 Metabolic encephalopathy; L03.116 Cellulitis of left lower limb; B37.49 Other urogenital candidiasis; K56.7 Ileus, unspecified; Z68.41 Body mass index [BMI] 40.0-44.9, adult; I10 Essential (primary) hypertension; G89.29 Other chronic pain; E66.9 Obesity, unspecified; E87.6 Hypokalemia; F03.90 Unspecified dementia, unspecified severity, without behavioral disturbance, psychotic disturbance, mood disturbance, and anxiety; J44.9 Chronic obstructive pulmonary disease, unspecified; E78.5 Hyperlipidemia, unspecified; M19.90 Unspecified osteoarthritis, unspecified site; K21.9 Gastro-esophageal reflux disease without esophagitis; I87.8 Other specified disorders of veins; B35.4 Tinea corporis; Z66 Do not resuscitate; Z86.59 Personal history of other mental and behavioral disorders; Z79.891 Long term (current) use of opiate analgesic; Z79.899 Other long term (current) drug therapy
CPT/HCPCS: 36415; 74018; 74022; 74177; 80048; 80053; 80202; 81001; 83605; 83735; 85025; 85027; 87040; 87086; 94640; 96365; 96368; 99291; J1644; J2310; J2543; J3370; J3490; J7030; J7060; J7620

== ENCOUNTER 2018-01-03 20:43 | Emergency (ER) | payer MEDICARE, MEDICAID ==
[2018-01-03] MEDS ORDERED: NORMAL SALINE 1000 ML 1,000 ML IV ONE ×2 (21:07→23:18)
[2018-01-03] MEDS ORDERED: METOCLOPRAMIDE HCL INJ/PF 10 MG/2 ML SDV IV ONE (21:09)
[2018-01-03 21:13] LABS: ABSOLUTE BASOPHILS # (AUTO) 0.1 10^3/uL (0.0-0.2); ABSOLUTE EOSINOPHILS # (AUTO) 0.2 10^3/uL (0.0-0.6); ABSOLUTE LYMPHOCYTES (AUTO) 1.5 10^3/uL (0.5-4.7); ABSOLUTE MONOCYTES (AUTO) 0.7 10^3/uL (0.1-1.4); BASOPHILS % (AUTO) 0.6 % (0-2); EOSINOPHILS % (AUTO) 1.9 % (0-6); HEMATOCRIT 37.7 % (36.0-47.0); LYMPHOCYTES % (AUTO) 15.6 % (13-45); MEAN CORPUSCULAR HEMOGLOBIN 31.9 pg (27.0-33.4); MEAN CORPUSCULAR HGB CONC 34.4 g/dL (32.0-36.0); MEAN CORPUSCULAR VOLUME 93 fl (80-97); MONOCYTES % (AUTO) 7.5 % (3-13); PLATELET COUNT 256 10^3/uL (150-450); RED BLOOD COUNT 4.07 10^6/uL (3.72-5.28); RED CELL DISTRIBUTION WIDTH 13.9 % (11.5-14.0); SEGMENTED NEUTROPHILS % (AUTO) 74.4 % (42-78); TOTAL CELLS COUNTED % (AUTO) 100 %; WHITE BLOOD COUNT 9.4 10^3/uL (4.0-10.5)
[2018-01-03 21:22] LABS: ALANINE AMINOTRANSFERASE 12 U/L (9-52); ALBUMIN 3.9 g/dL (3.5-5.0); ALKALINE PHOSPHATASE 81 U/L (38-126); ANION GAP 13 (5-19); ASPARTATE AMINO TRANSFERASE 13 U/L (14-36); BILIRUBIN,DIRECT 0.2 mg/dL (0.0-0.4); BILIRUBIN,TOTAL 0.7 mg/dL (0.2-1.3); BLOOD UREA NITROGEN 9 mg/dL (7-20); CARBON DIOXIDE 27 mmol/L (22-30); CHLORIDE 102 mmol/L (98-107); GLUCOSE 110 mg/dL (75-110); POTASSIUM 3.3 mmol/L (3.6-5.0); SODIUM 142.1 mmol/L (137-145); TOTAL PROTEIN 6.8 g/dL (6.3-8.2)
--- NOTE | 2018-01-03 22:57 | RADIOLOGY REPORT (SQ) ---
EXAM DESCRIPTION: CT ABDOMEN PELVIS WITH IV CONTRAST COMPLETED DATE/TME: 01/03/2018 21:08 CLINICAL HISTORY: 62 years, Female, pain, tachy COMPARISON: Prior CT 05/29/2017 TECHNIQUE: 420 Images stored on PACS. All CT scanners at this facility use dose modulation, iterative reconstruction, and/or weight based dosing when appropriate to reduce radiation dose to as low as reasonably achievable (ALARA). [facility]: Dose Right [facility]: CareDose [facility]: Dose Right [facility]: Teradose 4D [facility]: Smart [employer] LIMITATIONS: None. FINDINGS: Limited evaluation of the lung bases shows an area of somewhat nodular scarring in the posterior left lung base, similar to the prior exam. Osseous structures are grossly intact. Trace of pericardial fluid noted. Diffuse fatty infiltrative change to the liver. Stable cyst or hemangioma in the anterior aspect of the liver. The gallbladder appears mildly distended. Questionable tiny gallstones. The spleen, adrenal glands, pancreas, and kidneys are unremarkable. Rather extensive atheromatous changes. Postsurgical changes of the rectosigmoid colon. No gross evidence for bowel obstruction. Mild distention of the colon is again noted, likely reflecting ileus and appearing similar to the prior exam. IMPRESSION: Mild distention of the colon likely reflecting colonic ileus, similar to the prior exam. Extensive atheromatous changes. Fatty infiltrative change to the liver. Questionable tiny gallstones.. TECHNICAL DOCUMENTATION: Quality ID # [id number]: Final reports with documentation of one or more dose reduction techniques (e.g., Automated exposure control, adjustment of the mA and/or kV according to patient size, use of iterative reconstruction technique) 2010 [employer]- All Rights Reserved
[2018-01-03] MEDS ORDERED: IBUPROFEN 800 MG TABLET PO ONE (23:18)
[2018-01-03 23:54] LABS: BILIRUBIN,URINE NEGATIVE (NEGATIVE); GLUCOSE, URINE NEGATIVE (NEGATIVE); KETONES,URINE NEGATIVE (NEGATIVE); LEUKOCYTE ESTERASE,URINE LARGE (NEGATIVE); NITRITE,URINE NEGATIVE (NEGATIVE); PROTEIN,URINE NEGATIVE (NEGATIVE); URINE SPECIFIC GRAVITY 1.006; UROBILINOGEN,URINE NEGATIVE mg/dL (<2.0)
[2018-01-03 23:55] LABS: APPEARANCE,URINE TURBID; COLOR,URINE DARK YELLOW
[2018-01-04] MEDS ORDERED: CEFTRIAXONE 1 GM/D5W RTU 1 GM/50 ML RTUPB IV ONE (00:30)
[2018-01-04] MEDS ORDERED: RINGERS SOLUTION,LACTATED 1,000 ML IV ONE (01:40)
--- NOTE | 2018-01-04 01:56 | ER Document Report ---
ED GI/ - General Chief Complaint: Diarrhea Stated Complaint: DIARRHEA Time Seen by Provider: 01/03/18 20:53 Notes: Pt. is a morbidly obese Pt. from an [facility]. Pt. stated she is in this facility because "no one wanted to take care of me." Pt. stated that she can not really stand on her own, has kyphosis and wears an adult diaper and her family placed her in this facility for snf care. PT. stated around Friday of last week she started with constipation. Patient states staff was giving her laxatives to help her have bowel movements. Patient then stated her bowel movements turned into diarrhea and staff then started giving her Imodium. Patient states that the diarrhea has been continuous and this evening she started with abdominal pain which is why she presents to the emergency room. Patient states at times the diarrhea just "continuously runs out of me." Patient is complaining of a subjective fever states staff took her temperature and it was 100.1 Fahrenheit at the facility. Pt. denies CP, SOB, nausea or vomiting, dysuria. PMH: depression, GERD, hyperlipidema, HTN, Renal failure, UTI, anxiety, constipation, COPD Meds: Calcium, Iron, Immodium, Zocor, Senna, Cymbalta, Zantac, Buspar, Lopressor , Miralax, Symbicort, [place], Flexeril, Albuterol, Trazadone, Colace Allergies: none Pt. is a DNR TRAVEL OUTSIDE OF THE [place] IN LAST 30 DAYS: No - Related Data Allergies/Adverse Reactions: No Known Allergies Allergy (Verified 02/18/17 15:28) Past Medical History - General Information source: Patient, Outside Facility Records - Social History Smoking Status: Unknown if Ever Smoked Lives with: [facility] Family History: Other - Unobtainable from the patient Patient has suicidal ideation: No Patient has homicidal ideation: No - Past Medical History Cardiac Medical History: Reports: Hx Hypercholesterolemia, Hx Hypertension Denies: Hx Coronary Artery Disease, Hx Heart Attack Pulmonary Medical History: Reports: Hx Asthma, Hx Bronchitis, Hx COPD Denies: Hx Pneumonia Neurological Medical History: Denies: Hx Cerebrovascular Accident, Hx Seizures Renal/ Medical History: Denies: Hx Peritoneal Dialysis GI Medical History: Reports: Hx Gastroesophageal Reflux Disease Musculoskeletal Medical History: Reports Hx Arthritis Skin Medical History: Reports Hx Cellulitis Psychiatric Medical History: Reports: Hx Depression - Not currently depressed Past Surgical History: Reports: Hx Bowel Surgery, Hx Hysterectomy, Hx Tonsillectomy - Immunizations Hx Diphtheria, Pertussis, Tetanus Vaccination: No Hx Pneumococcal Vaccination: 03/03/12 Review of Systems - Review of Systems Constitutional: See HPI EENT: No symptoms reported Cardiovascular: See HPI Respiratory: See HPI Gastrointestinal: See HPI Genitourinary: See HPI Female Genitourinary: No symptoms reported Musculoskeletal: No symptoms reported Skin: No symptoms reported Hematologic/Lymphatic: No symptoms reported Neurological/Psychological: No symptoms reported Physical Exam - Vital signs Vitals: Temp Pulse Resp BP Pulse Ox 98.4 F 131 H 16 118/73 94 01/03/18 20:51 01/03/18 20:51 01/03/18 20:51 01/03/18 20:51 01/03/18 20:51 - Notes Notes: GENERAL: Morbidly obese, alert, interacts well. No acute distress. HEAD: Normocephalic, atraumatic. EYES: Pupils equal, round, and reactive to light. Extraocular movements intact. ENT: Oral mucosa moist, tongue midline. NECK: Full range of motion. Supple. Trachea midline. LUNGS: Clear to auscultation bilaterally, no wheezes, rales, or rhonchi. No respiratory distress. HEART: Tachycardic rate and rhythm. No murmur ABDOMEN: Soft, Non-distended. Bowel sounds present in all 4 quadrants. Generalized tenderness all 4 quadrants more so upon palpation. EXTREMITIES: Moves all 4 extremities spontaneously. normal radial and dorsalis pedis pulses bilaterally. No cyanosis. Nonpitting edema bilateral lower extremities. BACK: no cervical, thoracic, lumbar midline tenderness. NEUROLOGICAL: Alert and oriented x3. Normal speech. cranial nerves II through XII grossly intact PSYCH: Normal affect, normal mood. SKIN: Warm, dry, normal turgor. Course - Re-evaluation Re-evalutation: Initially discussed case with who trended the pts vitals from recent visits. It was found pts HR was normally in the 100s. BP has been around 100 systolic entire visit. Pt. stated she no longer has an abdominal pain and also has not have anymore episodes of diarrhea since coming to the ED. recommends one more liter of fluids at this time, LR. Pt. has had a total of 2 litters of NSS and 1 litter of LR. Pts current HR is 112. BP 104/63 No signs of leukocytosis, patient able to p.o. fluids in the emergency room Pt. wishes to go back to the nursing facility. Discussed need to continue with fluids and taking ABX for UTI. Return precautions discussed. 01/04/18 04:12 - Vital Signs Vital signs: Temp Pulse Resp BP Pulse Ox 98.4 F 131 H 15 104/63 96 01/03/18 20:51 01/03/18 20:51 01/04/18 04:01 01/04/18 04:00 01/04/18 04:01 - Laboratory Result Diagrams: 01/03/18 21:00 01/03/18 21:00 Laboratory results interpreted by me: 01/03/18 01/03/18 21:00 23:02 Potassium 3.3 L AST 13 L Urine Blood MODERATE H Ur Leukocyte Esterase LARGE H Discharge - Discharge Clinical Impression: Unable to ambulate Urinary tract infection Qualifiers: Urinary tract infection type: acute cystitis Hematuria presence: without hematuria Qualified Code(s): N30.00 - Acute cystitis without hematuria Abdominal pain Qualifiers: Abdominal location: generalized Qualified Code(s): R10.84 - Generalized abdominal pain Diarrhea Qualifiers: Diarrhea type: unspecified type Qualified Code(s): R19.7 - Diarrhea, unspecified Condition: Stable Disposition: SNF-Other Instructions: Abdominal Pain ([facility]), Cephalexin ([facility]), Urinary Tract Infection ( [facility]) Additional Instructions: As we discussed you have been seen and treated in the emergency room for a urinary tract infection. You should take antibiotics as prescribed. Please continue to stay well-hydrated. Please return to the emergency room for any other worsening symptoms. Prescriptions: Cephalexin Monohydrate [Keflex 500 mg Capsule] 500 mg PO BID 7 Days #14 capsule Referrals: LEONID MARIE MD [Primary Care Provider] - Follow up as needed
[2018-01-04 05:07] VITALS: BP 93/67
== END 2018-01-04 05:07 ==
LOC: ER 20:43
DX: R19.7 Diarrhea, unspecified (principal); N30.00 Acute cystitis without hematuria; R10.84 Generalized abdominal pain; R27.0 Ataxia, unspecified; E66.01 Morbid (severe) obesity due to excess calories; M40.209 Unspecified kyphosis, site unspecified; J44.9 Chronic obstructive pulmonary disease, unspecified; K59.00 Constipation, unspecified; I10 Essential (primary) hypertension; F32.9 Major depressive disorder, single episode, unspecified; E78.00 Pure hypercholesterolemia, unspecified; K21.9 Gastro-esophageal reflux disease without esophagitis; F41.9 Anxiety disorder, unspecified; Z79.899 Other long term (current) drug therapy; Z79.51 Long term (current) use of inhaled steroids; Z79.891 Long term (current) use of opiate analgesic; R00.0 Tachycardia, unspecified
CPT/HCPCS: 99285; 96361; 96375; 96365; 36415; 87040; 87045; 87086; 87205; 85025; 87088; 80053; 81001; 87186; 87493; 74177; A9270; J2765; J7030 ×2; J7120; J0696

== ENCOUNTER 2018-08-18 21:02 | Emergency (ER) | payer MEDICARE, MEDICAID ==
[2018-08-18] MEDS ORDERED: IPRATROPIUM/ALBUTEROL 0.5-2.5 MG/3 ML AMPUL NEB ONE (21:04)
[2018-08-18] MEDS ORDERED: METHYLPREDNISOLONE INJ 125 MG/2 ML SDV IV ONE (21:04)
--- NOTE | 2018-08-18 21:40 | RADIOLOGY REPORT (SQ) ---
EXAM DESCRIPTION: XR CHEST 1 VIEW COMPLETED DATE/TME: 08/18/2018 21:04 CLINICAL HISTORY: 62 years, Female, difficulty breathing Comparison: None FINDINGS: No focal lung consolidation. No pleural effusion. No pneumothorax. Mild cardiomegaly. No acute osseous abnormality. Soft tissues are unremarkable. IMPRESSION: Mild cardiomegaly. No focal lung consolidation.
[2018-08-18] MEDS ORDERED: ONDANSETRON HCL INJ/PF 4 MG/2 ML SDV IV ONE (21:47)
--- NOTE | 2018-08-18 22:53 | ER Document Report ---
ED General - General Chief Complaint: Nausea/Vomiting Stated Complaint: NAUSEA/VOMITING Time Seen by Provider: 08/18/18 22:51 Primary Care Provider: LEONID MARIE MD [Primary Care Provider] - Follow up as needed Notes: Patient is a 62-year-old female presents with complaint of intractable nausea and vomiting. Some mild abdominal distention. No significant abdominal pain. No fevers. No diarrhea. No blood in her stool. No blood in her emesis. Denies any chest pain or shortness of breath. No other complaints at this time. She does stay at the [facility]. She denies noticing any recent changes in her medications. TRAVEL OUTSIDE OF THE [place] IN LAST 30 DAYS: No - Related Data Allergies/Adverse Reactions: No Known Allergies Allergy (Verified 02/18/17 15:28) Past Medical History - Social History Smoking Status: Former Smoker Frequency of alcohol use: None Drug Abuse: None Family History: Other - Unobtainable from the patient Patient has suicidal ideation: No Patient has homicidal ideation: No - Past Medical History Cardiac Medical History: Reports: Hx Hypercholesterolemia, Hx Hypertension Denies: Hx Coronary Artery Disease, Hx Heart Attack Pulmonary Medical History: Reports: Hx Asthma, Hx Bronchitis, Hx COPD Denies: Hx Pneumonia Neurological Medical History: Denies: Hx Cerebrovascular Accident, Hx Seizures Renal/ Medical History: Denies: Hx Peritoneal Dialysis GI Medical History: Reports: Hx Gastroesophageal Reflux Disease Musculoskeletal Medical History: Reports Hx Arthritis Skin Medical History: Reports Hx Cellulitis Psychiatric Medical History: Reports: Hx Depression - Not currently depressed Past Surgical History: Reports: Hx Bowel Surgery, Hx Hysterectomy, Hx Tonsillectomy - Immunizations Hx Diphtheria, Pertussis, Tetanus Vaccination: No Hx Pneumococcal Vaccination: 03/03/12 Review of Systems - Review of Systems Notes: My Normal Review Basic REVIEW OF SYSTEMS: CONSTITUTIONAL : Denies fever, chills, or sweats. Denies recent illness. EENT: Denies eye, ear, throat, or mouth pain or symptoms. Denies nasal or sinus congestion. CARDIOVASCULAR: Denies chest pain. RESPIRATORY: Denies cough, cold, or chest congestion. Denies shortness of breath, difficulty breathing, or wheezing. GASTROINTESTINAL: Denies abdominal pain. Vomiting GENITOURINARY: Denies difficulty urinating, painful urination, burning, frequency, or blood in urine. MUSCULOSKELETAL: Denies neck or back pain or joint pain or swelling. SKIN: Denies rash or skin lesions. NEUROLOGICAL: Denies altered mental status or loss of consciousness. Denies headache. Denies weakness or paralysis or loss of use of either side. Denies problems with gait or speech. Denies sensory or motor loss. ALL OTHER SYSTEMS REVIEWED AND NEGATIVE. Physical Exam - Vital signs Vitals: Temp Pulse Resp BP Pulse Ox 98.7 F 94 20 102/41 L 100 08/18/18 21:03 08/18/18 21:03 08/18/18 21:03 08/18/18 21:03 08/18/18 21:03 - Notes Notes: General Appearance: Well nourished, alert, cooperative, no acute distress, no obvious discomfort. Actively vomiting. Vitals: reviewed, See vital signs table. Eyes: PERRL, EOMI, Conjuctiva clear Mouth: No decreasd moisture Lungs: No wheezing, No rales, No rhonci, No accessory muscle use, good air exchange bilaterally. Heart: Normal rate, Regular rythm, No murmur, no rub Abdomen: Normal BS, soft, No rigidity, no diffuse abdominal tenderness palpation., No guarding, no rebound, no abdominal masses, no organomegaly Extremities: good pulses in all extremities, no swelling or tenderness in the extremities, no edema. Skin: warm, dry, appropriate color, no rash Neuro: speech clear, oriented x 3, normal affect, responds appropriately to questions. Course - Re-evaluation Re-evalutation: 08/19/18 06:50 CT scan did not show any concerning findings. In reviewing the CT scan she does have moderate amount of stool enlargement stool down her rectum and sigmoid colon. She had will be gaseous distention behind that. This may be why she was having some vomiting and nausea. I did give her an enema and she had a large amount of stool come out. She is feeling improved. She has not had any further vomiting and she is been tolerating p.o. without difficulty. She is afebrile and does not have a leukocytosis. Her heart rate is slightly tachycardic. His heart rate has ran anywhere from low 90s to low 100s. In reviewing her previous records this is actually normal for her. Blood pressure has been normal. Feel she is safe to be discharged home. I strongly encouraged her return to ER if she has recurrent vomiting, fevers, abdominal pain, or if she feels unwell in any way. Patient agrees with plan will be discharged home. Dictation of this chart was performed using voice recognition software; therefore, there may be some unintended grammatical errors. - Vital Signs Vital signs: Temp Pulse Resp BP Pulse Ox 98.7 F 94 15 119/82 98 08/18/18 21:03 08/18/18 21:03 08/19/18 03:01 08/19/18 03:01 08/19/18 03:01 - Laboratory Result Diagrams: 08/18/18 22:45 08/18/18 22:45 Laboratory results interpreted by me: 08/18/18 08/18/18 22:45 22:45 RDW 14.3 H Glucose 117 H - EKG Interpretation by Me Additional EKG results interpreted by me: 08/18/18 22:52 EKG is reviewed and interpreted by me. EKG shows sinus rhythm with a rate of [address] segment elevation or depression. No ischemic T wave inversions. IA interval slightly prolonged. QRS duration is within normal range. QTc interval is borderline. Discharge - Discharge Clinical Impression: Vomiting Qualifiers: Vomiting type: unspecified Vomiting Intractability: non-intractable Nausea presence: unspecified Qualified Code(s): R11.10 - Vomiting, unspecified Condition: Good Disposition: HOME, SELF-CARE Additional Instructions: Please take his medicine as prescribed. Please return to the ER if you have fevers, abdominal pain, recurring vomiting, or if you feel unwell in any way. Follow-up with your doctor in 2 to 3 days for reevaluation. Prescriptions: Ondansetron [Zofran Odt 4 mg Tablet] 1 tab PO Q4H PRN #10 tab.rapdis PRN Reason: For Nausea/Vomiting Referrals: LEONID MARIE MD [Primary Care Provider] - 08/21/18
[2018-08-18 22:57] LABS: ABSOLUTE EOSINOPHILS # (AUTO) 0.1 10^3/uL (0.0-0.6); ABSOLUTE LYMPHOCYTES (AUTO) 1.4 10^3/uL (0.5-4.7); ABSOLUTE MONOCYTES (AUTO) 0.5 10^3/uL (0.1-1.4); ABSOLUTE NEUT (AUTO) 6.3 10^3/uL (1.7-8.2); BASOPHILS % (AUTO) 0.5 % (0-2); EOSINOPHILS % (AUTO) 1.3 % (0-6); HEMATOCRIT 38.6 % (36.0-47.0); HEMOGLOBIN 12.8 g/dL (12.0-15.5); LYMPHOCYTES % (AUTO) 16.4 % (13-45); MEAN CORPUSCULAR HEMOGLOBIN 31.9 pg (27.0-33.4); MEAN CORPUSCULAR HGB CONC 33.2 g/dL (32.0-36.0); MEAN CORPUSCULAR VOLUME 96 fl (80-97); MONOCYTES % (AUTO) 5.8 % (3-13); PLATELET COUNT 210 10^3/uL (150-450); RED BLOOD COUNT 4.02 10^6/uL (3.72-5.28); RED CELL DISTRIBUTION WIDTH 14.3 % (11.5-14.0); TOTAL CELLS COUNTED % (AUTO) 100 %; WHITE BLOOD COUNT 8.3 10^3/uL (4.0-10.5)
[2018-08-18] MEDS ORDERED: NORMAL SALINE 1000 ML 500 ML IV ONE (23:10)
[2018-08-18 23:15] LABS: ALANINE AMINOTRANSFERASE 28 U/L (9-52); ALBUMIN 4.4 g/dL (3.5-5.0); ALKALINE PHOSPHATASE 82 U/L (38-126); ANION GAP 10 (5-19); ASPARTATE AMINO TRANSFERASE 21 U/L (14-36); BILIRUBIN,DIRECT 0.3 mg/dL (0.0-0.4); BILIRUBIN,TOTAL 0.5 mg/dL (0.2-1.3); BLOOD UREA NITROGEN 14 mg/dL (7-20); CALCIUM 9.6 mg/dL (8.4-10.2); CARBON DIOXIDE 29 mmol/L (22-30); CHLORIDE 104 mmol/L (98-107); GLUCOSE 117 mg/dL (75-110); POTASSIUM 4.1 mmol/L (3.6-5.0); SODIUM 142.5 mmol/L (137-145); TOTAL PROTEIN 7.5 g/dL (6.3-8.2)
--- NOTE | 2018-08-18 23:53 | RADIOLOGY REPORT (SQ) ---
EXAM DESCRIPTION: XR ABDOMEN 2 VIEWS SUPINE ERECT COMPLETED DATE/TME: 08/18/2018 23:11 CLINICAL HISTORY: 62 years, Female, vomiting COMPARISON: Prior study from 01/03/2018 NUMBER OF VIEWS: Five TECHNIQUE: Five frontal views of the abdomen were obtained. LIMITATIONS: None. FINDINGS: Severe right hip joint osteoarthrosis with remodeling of the femoral head as well as superior/slight lateral subluxation of the hip joint itself. Similar findings are evident about the contralateral hip. Multiple surgical clips project about the lower abdomen. Gas and a moderate amount of stool are noted about the large bowel. However, there is minimal small bowel gas which limits the evaluation of its caliber. No subdiaphragmatic free air is appreciated. No suspicious soft tissue calcifications are appreciated. IMPRESSION: Indeterminate bowel gas pattern. copyright 2010 [employer]- All Rights Reserved
[2018-08-19] MEDS: ALBUTEROL SULFATE 0.083% NEB 2.5 MG/3 ML AMPUL NEB SCH ×2 (01:33→02:06)
--- NOTE | 2018-08-19 04:44 | RADIOLOGY REPORT (SQ) ---
CLINICAL HISTORY: intractable vomiting. CREAT 0.81 COMPARISON: None. TECHNIQUE: CT ABDOMEN PELVIS WITH IV CONTRAST on 08/19/2018 12:00 AM CDT This exam was performed according to our departmental dose-optimization program, which includes automated exposure control, adjustment of the mA and/or kV according to patient size and/or use of iterative reconstruction technique. FINDINGS: There is mild bibasilar atelectasis. Abdomen: Liver is fatty in attenuation. There is no biliary dilatation. Gallbladder is normally distended. The pancreas and spleen are normal in appearance. Adrenal glands are normal. Kidneys are mildly atrophic. Abdominal aorta is densely calcified without aneurysm. There is no free air. There is no retroperitoneal adenopathy. Pelvis: Distal colon resection was performed. Urinary bladder is unremarkable. There is no free fluid. Hysterectomy was performed. Appendix is not clearly seen. Prior ventral hernia pelvis performed. Skeleton: There are no acute osseous findings. No suspicious bony lesions. There are severe degenerative changes of both hips. IMPRESSION: No acute inflammatory process. No renal or ureteral calculi.
[2018-08-19] MEDS ORDERED: MINERAL OIL 30 ML UDCUP PR ONE (04:56)
[2018-08-19 07:43] VITALS: BP 129/95
--- NOTE | 2018-08-19 07:54 | EKG REPORT ---
SEVERITY:- NORMAL ECG - SINUS RHYTHM : Confirmed by: Marily Duarte MD 19-Aug-2018 07:53:47
== END 2018-08-19 08:00 | disposition home or self-care (01) ==
LOC: ER 21:02
DX: R11.10 Vomiting, unspecified (principal); R14.0 Abdominal distension (gaseous); E78.00 Pure hypercholesterolemia, unspecified; I10 Essential (primary) hypertension; J44.9 Chronic obstructive pulmonary disease, unspecified; Z90.710 Acquired absence of both cervix and uterus
CPT/HCPCS: 93005; 99285; 96374; 36415; 85025; 80053; 74019; 71045; 74177; 93010; J3490; J2405; J7030

== ENCOUNTER 2019-11-18 21:59 | Emergency (ER) | payer MEDICARE, MEDICAID ==
[2019-11-18] MEDS ORDERED: ACETAMINOPHEN 325 MG TABLET PO ONE (22:21)
[2019-11-18] MEDS ORDERED: HYDROCODONE/ACETAMINOPHEN 5-325 MG TABLET PO ONE (22:21)
--- NOTE | 2019-11-18 22:24 | ER Document Report ---
ED Fall - General Chief Complaint: Fall Injury Stated Complaint: FALL Time Seen by Provider: 11/18/19 22:13 Primary Care Provider: ANGÉLICA DASH MD [Primary Care Provider] - Follow up as needed Notes: Patient is a 64-year-old female that comes emergency department by EMS from [facility] for chief complaint of a mechanical fall. By report and per patient statement patient was attempting to get out of bed to use the bathroom and then attempted to get back into bed when she fell and "landed on my leg". She reports some pain in the right lower back, right hip, and right leg areas. She denies head injury, she denies any other areas of injury. She is not on a blood thinner. Patient is minimally ambulatory at baseline and requires a lot of assistance. Patient is oriented to person, place, events, although patient actually had a CAT scan of the head earlier today performed by her provider for questionable altered mental status although that was reportedly negative and patient is reportedly at her baseline now. Past medical history includes some dementia, asthma/COPD, obesity, hypertension, hyperlipidemia. TRAVEL OUTSIDE OF THE [place] IN LAST 30 DAYS: No - Related data Allergies/Adverse Reactions: No Known Allergies Allergy (Verified 08/19/18 07:51) Past Medical History - General Information source: Patient, Transfer Record, Emergency Med Personnel - Social History Smoking Status: Never Smoker Frequency of alcohol use: None Drug Abuse: None Lives with: [facility] Family History: Other - Unobtainable from the patient - Past Medical History Cardiac Medical History: Reports: Hx Hypercholesterolemia, Hx Hypertension Denies: Hx Coronary Artery Disease, Hx Heart Attack Pulmonary Medical History: Reports: Hx Asthma, Hx Bronchitis, Hx COPD Denies: Hx Pneumonia Neurological Medical History: Denies: Hx Cerebrovascular Accident, Hx Seizures Renal/ Medical History: Denies: Hx Peritoneal Dialysis GI Medical History: Reports: Hx Gastroesophageal Reflux Disease Musculoskeletal Medical History: Reports Hx Arthritis Skin Medical History: Reports Hx Cellulitis Psychiatric Medical History: Reports: Hx Depression - Not currently depressed Past Surgical History: Reports: Hx Bowel Surgery, Hx Hysterectomy, Hx Tonsillectomy - Immunizations Hx Diphtheria, Pertussis, Tetanus Vaccination: No Hx Pneumococcal Vaccination: 03/03/12 Review of Systems - Review of Systems Constitutional: No symptoms reported EENT: No symptoms reported Cardiovascular: No symptoms reported Respiratory: No symptoms reported Gastrointestinal: No symptoms reported Genitourinary: No symptoms reported Female Genitourinary: No symptoms reported Musculoskeletal: See HPI Skin: No symptoms reported Hematologic/Lymphatic: No symptoms reported Neurological/Psychological: No symptoms reported Physical Exam - Vital signs Vitals: Temp Pulse Resp BP Pulse Ox 98.1 F 95 20 120/75 95 11/18/19 22:22 11/18/19 22:22 11/18/19 22:22 11/18/19 22:22 11/18/19 22:22 - Notes Notes: GENERAL: Alert, interacts well. No acute distress. HEAD: Normocephalic, atraumatic. EYES: Pupils equal, round, and reactive to light. Extraocular movements intact. ENT: Oral mucosa moist, tongue midline. Oropharynx unremarkable. Airway patent. NECK: Full range of motion. Supple. Trachea midline. No lymphadenopathy. LUNGS: Clear to auscultation bilaterally, no wheezes, rales, or rhonchi. No res piratory distress. Non-tender chest wall. HEART: Regular rate and rhythm. No murmur ABDOMEN: Soft, non-tender. Non-distended. EXTREMITIES: Tenderness over the right proximal femoral head area, generally over the right anterior knee, and also generally over the right lateral ankle. No swelling, contusion, or other signs of trauma noted. Normal distal neurovascular exam. Otherwise unremarkable extremity exam. BACK: There is some generalized tenderness over the lower lumbar area and over the right paralumbar musculature. No signs of trauma. No saddle anesthesia, normal distal neurovascular exam. Moves all extremities in full range of motion. NEUROLOGICAL: Alert and oriented x3. Normal speech. Cranial nerves II through XII grossly intact. Strength 5/5 in all extremities. PSYCH: Normal affect, normal mood. SKIN: Warm, dry, normal turgor. No rashes or lesions noted. Course - Re-evaluation Re-evalutation: There is some mild generalized tenderness over the lower back but no signs of trauma, patient is generally tender over the right leg and hip but there are no signs of trauma, patient is smiling, talkative, well-appearing. She denies head injury, headache, or any other complaints. No neurological deficits reported. Patient is reportedly not ambulatory without assistance at baseline and she states regret at getting up on her own. Imaging performed and all unremarkable, reevaluation patient with no complaints, states she is ready to go back to her long-term care facility. Discussed expectations, follow-up, return precautions. Patient states appreciation and agreement. - Vital Signs Vital signs: Temp Pulse Resp BP Pulse Ox 97.9 F 94 20 114/62 94 11/19/19 04:09 11/19/19 04:09 11/19/19 04:09 11/19/19 04:09 11/19/19 04:09 Discharge - Discharge Clinical Impression: Right hip pain, Right leg pain Fall Qualifiers: Encounter type: initial encounter Qualified Code(s): W19.XXXA - Unspecified fall, initial encounter Lower back pain Qualifiers: Chronicity: acute Back pain laterality: right Sciatica presence: without sciatica Qualified Code(s): M54.5 - Low back pain Condition: Stable Disposition: HOME, SELF-CARE Additional Instructions: The imaging is normal, no concerning injuries are seen. You probably will have some soreness but this should simply resolve with time. Apply ice to your leg, heat to your lower back, take Tylenol for pain, follow-up closely with primary care. Return if you worsen including severe worsening pain, numbness, inability to control your bowel or bladder, or any other concerning or worsening symptoms. Referrals: ANGÉLICA DASH MD [Primary Care Provider] - Follow up as needed
--- NOTE | 2019-11-18 23:23 | RADIOLOGY REPORT (SQ) ---
EXAM DESCRIPTION: CT LUMBAR SPINE WITHOUT IV CONTRAST COMPLETED DATE/TME: 11/18/2019 22:20 CLINICAL HISTORY: 64 years, Female, fall, pain COMPARISON: 10/03/2014 CT TECHNIQUE: 439 Images stored on PACS. All CT scanners at this facility use dose modulation, iterative reconstruction, and/or weight based dosing when appropriate to reduce radiation dose to as low as reasonably achievable (ALARA). [facility]: Dose Right [facility]: CareDose [facility]: Dose Right [facility]: Teradose 4D [facility]: [place] LIMITATIONS: None. FINDINGS: 5 lumbar type vertebral bodies, for the purposes of this exam. Vertebral body height is preserved. Stable anterolisthesis of L4 with respect to L5 and L5 with respect to S1, secondary to advanced facet arthropathy at these levels. Alignment is otherwise preserved. Limited evaluation of extraspinal anatomic structures shows nonobstructing renal calculi as well as vascular calcifications. Large amount of stool in the rectal vault. Disc space narrowing with endplate degenerative change at the L4-5 and L5-S1 levels. At least mild to moderate neural foraminal narrowing bilaterally at these levels. No CT evidence for significant central canal stenosis. Evaluation of spinal canal contents limited due to CT technique. Degenerative changes of the lower thoracic spine. Remaining disc spaces are preserved. IMPRESSION: Little change from the 2015 exam. There are degenerative changes with minor anterolisthesis at L4-5 and L5-S1. TECHNICAL DOCUMENTATION: Quality ID # [id number]: Final reports with documentation of one or more dose reduction techniques (e.g., Automated exposure control, adjustment of the mA and/or kV according to patient size, use of iterative reconstruction technique) copyright 2011 [employer]- All Rights Reserved
--- NOTE | 2019-11-18 23:42 | RADIOLOGY REPORT (SQ) ---
CLINICAL HISTORY: fall, pain COMPARISON: None. TECHNIQUE: XR KNEE 1-2 VIEWS 11/18/2019 10:20 PM CDT FINDINGS: There is no fracture. There is severe narrowing of the lateral knee compartment. There is mild narrowing of the patellofemoral and medial knee compartments. Soft tissues are unremarkable. There is diffuse osteopenia. IMPRESSION: No acute osseous findings.
--- NOTE | 2019-11-18 23:43 | RADIOLOGY REPORT (SQ) ---
CLINICAL HISTORY: fall, pain COMPARISON: None. TECHNIQUE: XR ANKLE 3 OR MORE VIEWS 11/18/2019 10:20 PM CDT FINDINGS: There is no fracture. Joint spaces are preserved. There is mostly lateral soft tissue swelling. There is a calcaneal spur. Bones are osteopenic. IMPRESSION: No acute osseous findings.
--- NOTE | 2019-11-18 23:46 | RADIOLOGY REPORT (SQ) ---
EXAM DESCRIPTION: AP pelvis and additional view of right hip RadLex: XR HIP 2 OR MORE VIEWS Views: 2 CLINICAL HISTORY: 64 years Female; fall, pain; COMPARISON: CT 08/19/2018 FINDINGS: Overall pelvic alignment is anatomic. There is severe chronic remodeling of the femoral heads and acetabula bilaterally. On the right, there is superior migration of the femoral head by approximately 50%. No acute fracture. There has been no significant change since 08/19/2018. IMPRESSION: 1. Severe chronic changes of both hips, similar to the 08/19/2018 CT scan. 2. No acute fractures
[2019-11-19 04:09] VITALS: BP 114/62
== END 2019-11-19 04:14 | disposition home or self-care (01) ==
LOC: ER 21:59
DX: M54.5 Low back pain (principal); M25.551 Pain in right hip; M79.604 Pain in right leg; R10.31 Right lower quadrant pain; W19.XXXA Unspecified fall, initial encounter; I10 Essential (primary) hypertension; J44.9 Chronic obstructive pulmonary disease, unspecified
CPT/HCPCS: 99285; 73610; 73502; 73560; 72131; A9270 ×2; 70450

== ENCOUNTER → 2019-11-18 | Outpatient (CLI) | payer MEDICARE, MEDICAID ==
--- NOTE | 2019-11-18 13:32 | RADIOLOGY REPORT (SQ) ---
EXAM DESCRIPTION: CT HEAD WITHOUT IMAGES COMPLETED DATE/TIME: 11/18/2019 12:48 pm REASON FOR STUDY: (R41.82)ALTERED MENTAL STATUS, UNSPECIFIED R41.82 ALTERED MENTAL STATUS, UNSPECIF IED COMPARISON: 03/18/2016 TECHNIQUE: Axial images acquired through the brain without intravenous contrast. Images reviewed wi th bone, brain and subdural windows. Additional sagittal and coronal reconstructions were generated. Images stored on PACS. All CT scanners at this facility use dose modulation, iterative reconstruction, and/or weight based d osing when appropriate to reduce radiation dose to as low as reasonably achievable (ALARA). [facility]: Dose Right [facility]: CareDose [facility]: Dose Right [facility]: Teradose 4D [facility]: Smart [employer] RADIATION DOSE: CT Rad equipment meets quality standard of care and radiation dose reduction techniq ues were employed. CTDIvol: 48.6 mGy. DLP: 905 mGy-cm. mGy. LIMITATIONS: None. FINDINGS: VENTRICLES: Prominent ventricles secondary to involutional atrophy. CEREBRUM: No masses. No hemorrhage. No midline shift. No evidence for acute infarction. Areas of l ow density in the white matter most likely chronic small vessel ischemic changes. CEREBELLUM: No masses. No hemorrhage. No alteration of density. No evidence for acute infarction. EXTRAAXIAL SPACES: No fluid collections. No masses. ORBITS AND GLOBE: No intra- or extraconal masses. Normal contour of globe without masses. CALVARIUM: No fracture. PARANASAL SINUSES: No fluid or mucosal thickening. SOFT TISSUES: No mass or hematoma. OTHER: No significant finding IMPRESSION: Involutional changes with chronic microvascular ischemia. No acute intracranial imaging findings. EVIDENCE OF ACUTE STROKE: NO. COMMENT: Quality ID # [id number]: Final reports with documentation of one or more dose reduction techniques (e.g., Automated exposure control, adjustment of the mA and/or kV according to patient size, use of iterative reconstruction technique) TECHNICAL DOCUMENTATION: JOB ID: [id number] 2010 [employer]- All Rights Reserved Reading location - IP/workstation name: [email or web address]
== END ==
LOC: RAD 12:30
PROVIDERS: ATTEND Nurse Practitioner Family
DX: R41.82 Altered mental status, unspecified (principal)
CPT/HCPCS: 70450

== ENCOUNTER 2019-11-19 19:49 | Emergency (ER) | payer MEDICARE, MEDICAID ==
[2019-11-19] MEDS ORDERED: KETOROLAC TROMETHAMINE INJ/PF 30 MG/1 ML SDV IV ONE (20:37)
[2019-11-19] MEDS ORDERED: METHYLPREDNISOLONE INJ 125 MG/2 ML SDV IV ONE (20:37)
[2019-11-19] MEDS ORDERED: NORMAL SALINE 1000 ML 1,000 ML IV ONE (20:38)
[2019-11-19 20:44] LABS: ABSOLUTE BASOPHILS # (AUTO) 0.1 10^3/uL (0.0-0.2); ABSOLUTE EOSINOPHILS # (AUTO) 0.3 10^3/uL (0.0-0.6); ABSOLUTE LYMPHOCYTES (AUTO) 1.2 10^3/uL (0.5-4.7); ABSOLUTE MONOCYTES (AUTO) 0.7 10^3/uL (0.1-1.4); ABSOLUTE NEUT (AUTO) 6.8 10^3/uL (1.7-8.2); BASOPHILS % (AUTO) 0.8 % (0-2); HEMATOCRIT 37.3 % (36.0-47.0); HEMOGLOBIN 12.8 g/dL (12.0-15.5); LYMPHOCYTES % (AUTO) 13.5 % (13-45); MEAN CORPUSCULAR HEMOGLOBIN 33.7 pg (27.0-33.4); MEAN CORPUSCULAR HGB CONC 34.4 g/dL (32.0-36.0); MEAN CORPUSCULAR VOLUME 98 fl (80-97); MONOCYTES % (AUTO) 7.9 % (3-13); PLATELET COUNT 240 10^3/uL (150-450); RED BLOOD COUNT 3.81 10^6/uL (3.72-5.28); RED CELL DISTRIBUTION WIDTH 14.4 % (11.5-14.0); SEGMENTED NEUTROPHILS % (AUTO) 74.8 % (42-78); TOTAL CELLS COUNTED % (AUTO) 100 %; WHITE BLOOD COUNT 9.1 10^3/uL (4.0-10.5)
--- NOTE | 2019-11-19 20:47 | ER Document Report ---
ED General - General Chief Complaint: Altered Mental Status Stated Complaint: ALTERED MENTAL STATUS Time Seen by Provider: 11/19/19 20:22 Primary Care Provider: ANGÉLICA DASH MD [Primary Care Provider] - Follow up as needed TRAVEL OUTSIDE OF THE [place] IN LAST 30 DAYS: No - HPI Context: This is a 64-year-old female presenting via EMS from [facility] for evaluation of altered mental status. Apparently patient has had trouble with worsening altered mental status for at least 1 day. Patient was seen here in the ED yesterday after having a reported mechanical fall. Patient was thoroughly evaluated and not found to have any evidence of a acute injury requiring intervention. Patient had a CAT scan done yesterday that was ordered by her PCP for a report of altered mental status of unknown duration that was reportedly negative, reviewed by this MD and also found to be negative for any acute findings. This MD evaluated and reviewed the work-up and imaging done yesterday. Patient states she is also having low back pain that she states is worse today. Patient had a lumbar CT done that was negative for acute injury. Patient was diagnosed with acute back pain without sciatica. Patient returns today stating that her back pain is not improved. Patient states any movement exacerbates the pain and nothing seems to alleviate the pain. Patient rates her pain as a 5 out of 5 and states the pain is sharp in her lower back. Patient denies chest pain, shortness of breath, nausea vomiting, abdominal pain, loss of sense of taste, loss of sense of smell. Associated symptoms: Other - See HPI Exacerbated by: Movement Relieved by: Other - See HPI Similar symptoms previously: Yes Recently seen / treated by doctor: Yes - Seen and this ED yesterday for complaint of back pain and fall - Related Data Allergies/Adverse Reactions: No Known Allergies Allergy (Verified 08/19/18 07:51) Past Medical History - General Information source: Patient, Emergency Med Personnel, [facility] Records - Social History Smoking Status: Former Smoker Chew tobacco use (# tins/day): No Frequency of alcohol use: None Drug Abuse: None Lives with: Long-Term Family History: Reviewed & Not Pertinent, Other - Unobtainable from the patient Patient has homicidal ideation: No - Past Medical History Cardiac Medical History: Reports: Hx Hypercholesterolemia, Hx Hypertension Denies: Hx Coronary Artery Disease, Hx Heart Attack Pulmonary Medical History: Reports: Hx Asthma, Hx Bronchitis, Hx COPD Denies: Hx Pneumonia Neurological Medical History: Denies: Hx Cerebrovascular Accident, Hx Seizures Renal/ Medical History: Denies: Hx Peritoneal Dialysis GI Medical History: Reports: Hx Gastroesophageal Reflux Disease Musculoskeletal Medical History: Reports Hx Arthritis Skin Medical History: Reports Hx Cellulitis Psychiatric Medical History: Reports: Hx Depression - Not currently depressed Past Surgical History: Reports: Hx Bowel Surgery, Hx Hysterectomy, Hx Tonsillectomy - Immunizations Hx Diphtheria, Pertussis, Tetanus Vaccination: No Hx Pneumococcal Vaccination: 03/03/12 Review of Systems - Review of Systems Constitutional: See HPI EENT: No symptoms reported Cardiovascular: No symptoms reported Respiratory: No symptoms reported Gastrointestinal: No symptoms reported Genitourinary: No symptoms reported Female Genitourinary: No symptoms reported Musculoskeletal: Back pain Skin: No symptoms reported Hematologic/Lymphatic: No symptoms reported Neurological/Psychological: See HPI -: Yes All other systems reviewed and negative Physical Exam - Vital signs Vitals: Temp 99.5 F 11/19/19 19:50 - Notes Notes: CONSTITUTIONAL [Vital signs reviewed, Patient appears comfortable, Alert and oriented X 3, Normal stature.] HEAD [Atraumatic, Normocephalic.] EYES [Eyes are normal to inspection, No discharge from eyes, Extraocular muscles intact, Sclera are normal, Conjunctiva are normal.] NECK [Normal ROM, No jugular venous distention, No meningeal signs, no carotid bruit.] RESPIRATORY CHEST [Chest is nontender, Breath sounds normal, No respiratory distress.] CARDIOVASCULAR [Tachycardia, No murmurs, Normal S1 S2, No rub, No gallop.] ABDOMEN [Abdomen is nontender, No pulsatile masses, No other masses, Bowel sounds normal, No distension, No peritoneal signs, No hernias. No aortic bruits] BACK [Patient straight leg raise is positive bilaterally at less than 20 degrees.] UPPER EXTREMITY [Inspection normal, No cyanosis, No clubbing, No edema, 2+ radial pulses.] LOWER EXTREMITY No cyanosis, No clubbing, No edema, No calf tenderness, 2+ femoral pulses.] NEURO [No focal motor deficits, No focal sensory deficits, Speech normal. There is no slurring. Patient's short-term and long-term memory seems grossly intact on basic exam and conversing with the patient.] SKIN [Skin is warm, Skin is dry, Skin is normal color.] LYMPHATIC [No adenopathy in neck.] PSYCHIATRIC [Patient is somewhat anxious. Patient makes good eye contact. Train of thought seems normal.] Course - Re-evaluation Re-evalutation: 11/19/19 20:53 Presentation and an overall well-appearing patient in no acute distress who presents for evaluation of ams and back pain. At time of evaluation, patient's vitals are within normal limits and they are denying any additional acute complaints. Physical examination significant for + SLR. They deny any chest pain, shortness of breath, nausea, vomiting, or diarrhea. No dysuria or fever. 11/19/19 23:12 Results of ED MSE discussed with patient. Patient remains alert and oriented with no evidence of confusion or altered mental status. Patient has been given 2 g of Rocephin IV for urinary tract infection and will be put on antibiotics for same. Patient states that her back does feel at least somewhat better after Toradol and Solu-Medrol. This MD discussed plan of care with patient. Antibiotics for UTI, some tramadol for pain, prednisone for inflammation and activity as tolerated. Patient appreciative of care. All questions were answered prior to discharge. Emergency signs and symptoms, reasons to return to the emergency department discussed with patient. - Vital Signs Vital signs: Temp Pulse Resp BP Pulse Ox 100.4 F 14 136/92 H 98 11/19/19 20:37 11/19/19 22:01 11/19/19 22:01 11/19/19 22:01 - Laboratory Result Diagrams: 11/19/19 20:25 11/19/19 20:25 Laboratory results interpreted by me: 11/19/19 11/19/19 11/19/19 20:09 20:25 20:25 MCV 98 H MCH 33.7 H RDW 14.4 H Potassium 2.8 L* Carbon Dioxide 36 H Glucose 121 H Urine Protein 100 H Urine Ketones TRACE H Urine Blood LARGE H Ur Leukocyte Esterase SMALL H Urine Ascorbic Acid 40 H - Diagnostic Test Radiology reviewed: Reports reviewed - EKG Interpretation by Me Additional EKG results interpreted by me: 11/19/19 20:52 EKG obtained on 11/19/2019 at 2044 hrs. was interpreted by this MD. Findings: Sinus tachycardia, rate 105, normal axis, ND interval appears to be within normal limits, P waves proceed QRS complexes, QRS complex appears narrow, QTC appears to be within normal limits, there are no obvious patterns of ST segment elevation or depression present to suggest acute myocardial ischemia or i nfarction. EKG was compared to prior EKG from 08/19/2019. Other than today's EKG showing sinus tachycardia and the prior EKG showing a normal sinus rhythm, the gross morphology appears the same and there are no significant changes noted. Impression sinus tachycardia with nonspecific ST segments. Discharge - Discharge Clinical Impression: Hypokalemia Sciatica Qualifiers: Laterality: bilateral Qualified Code(s): M54.31 - Sciatica, right side; M54.32 - Sciatica, left side UTI (urinary tract infection) Qualifiers: Urinary tract infection type: site unspecified Hematuria presence: with hematuria Qualified Code(s): N39.0 - Urinary tract infection, site not specified; R31.9 - Hematuria, unspecified Left shoulder pain Qualifiers: Chronicity: acute Qualified Code(s): M25.512 - Pain in left shoulder Condition: Stable Disposition: HOME, SELF-CARE Instructions: Urinary Tract Infection ([facility]) Additional Instructions: Return to the Emergency Department without delay if any worse. HOME CARE INSTRUCTIONS & INFORMATION: Thank you for choosing us for your medical needs. We hope you're satisfied with the care you received. After you leave, you must properly care for your problem and, at the same time, observe its progress. Any condition can change. Some illnesses can change rapidly over hours or days. If your condition worsens, return to the Emergency Department or see your physician promptly. ABOUT YOUR X-RAYS AND EKG'S: If you had an EKG or X-rays taken, they have been read by the Emergency Physician. The X-rays and EKG's will also be read by a Radiologist or Scale Installer within 24 hours. If discrepancies are noted, you will be notified by telephone. Please be certain the ED has a correct telephone number & address where you can be reached. Also, realize that some fractures or abnormalities do not show up on initial X-rays. If your symptoms continue, see your physician. ABOUT YOUR LABORATORY TEST: If you had laboratory tests, the results have been reviewed by the Emergency Physician. Some test results (for example cultures) may not be available for several days. You will be contacted if any test result shows you need additional treatment. Please be certain the ED has a correct telephone number and address where you can be reached. ABOUT YOUR MEDICATIONS: You will receive instructions on how to take your medicine on the prescription label you receive. Additional information may be provided by the Pharmacy. If you have questions afterwards, call the ED for clarification or further instructions. Some prescribed medications may cause drowsiness. Do not perform tasks such as driving a car or operating machinery without consulting your Pharmacist. If you feel you need a refill of pain medication, your condition will need re-evaluation. Please do not call for a refill of any medication. ABOUT YOUR SIGNATURE: Signature of this document acknowledges to followin. Understanding that you received emergency treatment and that you may be released before al medical problems are known or treated. Please be certain the ED has a correct phone number & address where you can be reached. 2. Acknowledgement that you will arrange for follow-up care as recommended. 3. Authorization for the Emergency Physician to provide information to your follow-up Physician in order to maximize your care. AT ANY TIME, IF YOUR SYMPTOMS CHANGE SIGNIFICANTLY OR WORSEN OR YOU DEVELOP NEW SYMPTOMS, RETURN TO THE EMERGENCY DEPARTMENT IMMEDIATELY FOR RE-EVALUATION. OUR GOAL IS TO PROVIDE EXCELLENT MEDICAL CARE! WE HOPE THAT WE HAVE MET YOUR EXPECTATIONS DURING YOUR EMERGENCY DEPARTMENT VISI T AND THAT YOU FEEL YOU HAVE RECEIVED EXCELLENT CARE! Sciatica Your symptoms suggest "sciatica." The pain of sciatica typically radiates down the leg. Numbness in the foot or calf may also occur. Sciatica is caused by irritation of the sciatic nerve or its branches. The irritation can be due to a herniated disk in the spine, swelling and inflammation in the muscles surrounding the sciatic nerve, or direct injury of the nerve itself. Most cases of sciatica will resolve with medical treatment. Bed rest is usually recommended initially. Surgery is only necessary when the condition will not improve with rest and antiinflammatory medication. Muscle relaxers are often given if muscle soreness is present. A CAT scan of the back may be performed if a herniated disk is suspected. Re-examination is necessary if you develop increasing numbness, localized weakness in the foot or ankle, or if the pain does not respond to rest. Prescriptions: Tramadol HCl [Ultram 50 mg Tablet] 50 mg PO Q4HP PRN #12 tab PRN Reason: back pain Prednisone [Deltasone 20 mg Tablet] 3 tab PO DAILY 4 Days #12 tablet Nitrofurantoin Monohyd/M-Cryst [Macrobid 100 mg Capsule] 100 mg PO BID 10 Days #20 cap Referrals: ANGÉLICA DASH MD [Primary Care Provider] - Follow up as needed
[2019-11-19 21:00] LABS: ALKALINE PHOSPHATASE 58 U/L (38-126); ANION GAP 10 (5-19); ASPARTATE AMINO TRANSFERASE 27 U/L (14-36); BILIRUBIN,DIRECT 0.3 mg/dL (0.0-0.4); BILIRUBIN,TOTAL 0.9 mg/dL (0.2-1.3); BLOOD UREA NITROGEN 8 mg/dL (7-20); CALCIUM 9.8 mg/dL (8.4-10.2); CARBON DIOXIDE 36 mmol/L (22-30); CHLORIDE 98 mmol/L (98-107); GLUCOSE 121 mg/dL (75-110); TOTAL PROTEIN 6.9 g/dL (6.3-8.2)
--- NOTE | 2019-11-19 21:02 | EKG REPORT ---
SEVERITY:- ABNORMAL ECG - SINUS TACHYCARDIA BORDERLINE LEFT AXIS DEVIATION NONSPECIFIC T ABNORMALITIES, DIFFUSE LEADS : Confirmed by: Farzana Murillo 19-Nov-2019 21:01:19
[2019-11-19 21:06] LABS: POTASSIUM 2.8 mmol/L (3.6-5.0)
[2019-11-19] MEDS ORDERED: ONDANSETRON HCL INJ/PF 4 MG/2 ML SDV IV ONE (21:10)
[2019-11-19] MEDS ORDERED: POTASSIUM CHLORIDE 10 MEQ TABLET.ER PO ONE (21:10)
[2019-11-19 21:15] LABS: APPEARANCE,URINE CLOUDY; BILIRUBIN,URINE NEGATIVE (NEGATIVE); CALCIUM OXALATE CRYSTALS,URINE MANY /HPF; COLOR,URINE AMBER; GLUCOSE, URINE NEGATIVE (NEGATIVE); KETONES,URINE TRACE mg/dL (NEGATIVE); LEUKOCYTE ESTERASE,URINE SMALL (NEGATIVE); NITRITE,URINE NEGATIVE (NEGATIVE); PROTEIN,URINE 100 mg/dL (NEGATIVE); URINE SPECIFIC GRAVITY 1.019; UROBILINOGEN,URINE NEGATIVE mg/dL (<2.0)
[2019-11-19] MEDS ORDERED: CEFTRIAXONE INJ 1000 MG VIAL IV ONE (21:55)
--- NOTE | 2019-11-19 22:15 | RADIOLOGY REPORT (SQ) ---
EXAM DESCRIPTION: XR CHEST 1 VIEW COMPLETED DATE/TME: 11/19/2019 00:00 CLINICAL HISTORY: 64 years, Female, AMS/FEVER COMPARISON: 08/18/2018 NUMBER OF VIEWS: One TECHNIQUE: AP view the chest LIMITATIONS: None. FINDINGS: The lungs are clear. The heart is mildly enlarged. No pneumothorax or pleural effusion. No acute fracture. IMPRESSION: No acute cardiopulmonary abnormality copyright 2010 [employer] All Rights Reserved
--- NOTE | 2019-11-19 22:16 | RADIOLOGY REPORT (SQ) ---
EXAM DESCRIPTION: Left shoulder RadLex: XR SHOULDER 2 OR MORE VIEWS Views: 2 CLINICAL HISTORY: 64 years Female; AMS/FEVER/L SHOULDER PAIN; COMPARISON: None. FINDINGS: Negative for acute fracture, dislocation, or radiopaque foreign body. IMPRESSION: 1. No acute findings.
[2019-11-19] MEDS ORDERED: TRAMADOL HCL 50 MG TABLET PO ONE (23:25)
[2019-11-19 23:42] VITALS: BP 132/87
== END 2019-11-20 00:01 | disposition home or self-care (01) ==
LOC: ER 19:49
DX: N39.0 Urinary tract infection, site not specified (principal); R31.9 Hematuria, unspecified; M54.42 Lumbago with sciatica, left side; M54.41 Lumbago with sciatica, right side; M25.512 Pain in left shoulder; R00.0 Tachycardia, unspecified; E87.6 Hypokalemia; I10 Essential (primary) hypertension; J44.9 Chronic obstructive pulmonary disease, unspecified; Z91.81 History of falling; Z87.891 Personal history of nicotine dependence
CPT/HCPCS: 93005; 99285; 51701; 96375; 96365; 96366; 36415; 87040; 87086; 83605; 85025; 87088; 80053; 81001; 87186; 71045; 73030; 93010; J2930; J1885; J0696; J2405; J7030; A9270 ×2

== ENCOUNTER 2019-12-20 19:28 | Emergency (ER) | payer MEDICARE, MEDICAID ==
[2019-12-20] MEDS ORDERED: NORMAL SALINE 500 ML IV ONE (20:44)
[2019-12-20] MEDS ORDERED: MINERAL OIL 30 ML UDCUP PR ONE (20:48)
--- NOTE | 2019-12-20 20:51 | ER Document Report ---
ED GI/ - General Chief Complaint: Abdominal Pain Stated Complaint: ABDOMINAL PAIN Time Seen by Provider: 12/20/19 20:25 Primary Care Provider: ANGÉLICA DASH MD [Primary Care Provider] - Follow up as needed Notes: CHIEF COMPLAINT: Abdominal pain HPI: 64-year-old female with multiple medical issues presenting for abdominal pain over the last 1 to 2 weeks. Also reports constipation. No fever no vomiting. States she does have a history of constipation. States she does wear oxygen on an as-needed basis. ROS: See HPI - all other systems were reviewed and are otherwise negative Constitutional: no fever Eyes: no drainage, no blurred vision ENT: no runny nose, no sore throat Cardiovascular: no chest pain Resp: no SOB, no cough GI: no vomiting, no diarrhea, + abdominal pain, positive constipation : no dysuria Integumentary: no rash Allergy: no hives Musculoskeletal: no extremity pain or swelling Neurological: no numbness/tingling, no weakness MEDICATIONS: I agree with the patient medications as charted by the RN. ALLERGIES: I agree with the allergies as charted by the RN. PAST MEDICAL HISTORY/PAST SURGICAL HISTORY: Reviewed and agree as charted by RN. SOCIAL HISTORY: Reviewed and agree as charted by RN. FAMILY HISTORY: No significant familial comorbid conditions directly related to patient complaint EXAM: Reviewed vital signs as charted by RN. CONSTITUTIONAL: Alert and oriented and responds appropriately to questions. Chronically ill-appearing; well-nourished HEAD: Normocephalic; atraumatic EYES: PERRL; Conjunctivae clear, sclerae non-icteric ENT: normal nose; no rhinorrhea; moist mucous membranes; pharynx without lesions noted, no uvula edema or deviation, no tonsillar hypertrophy, phonation normal NECK: Supple without meningismus; non-tender; no cervical lymphadenopathy, no masses CARD: RRR; no murmurs, no clicks, no rubs, no gallops; symmetric distal pulses RESP: Normal chest excursion without splinting or tachypnea; breath sounds clear and equal bilaterally; no wheezes, no rhonchi, no rales, pulse oximetry 93% on room air not hypoxic ABD/GI: Morbidly obese, hypoactive bowel sounds; non-distended; soft, tenderness in the left upper or left lower quadrants on palpation, no rebound, no guarding; no palpable organomegaly or masses. Rectal: with female rail assembler present. There is a large amount of stool at the rectal opening. No visible lesions BACK: The back appears normal and is non-tender to palpation, there is no CVA tenderness EXT: Normal ROM in all joints; non-tender to palpation; no cyanosis, no effusions, no edema SKIN: Normal color for age and race; warm; dry; good turgor; no acute lesions noted NEURO: Moves all extremities equally; Motor and sensory function intact PSYCH: The patient's mood and manner are appropriate. Grooming and personal hygiene are appropriate. MDM: 64-year-old female presenting with abdominal pain and constipation. Given the patient's age and multiple medical issues will obtain imaging of the abdomen to ensure the patient does not have diverticulitis or other surgical or infectious process. Baseline screening labs placed by nursing protocol. Will obtain urinalysis as patient is mildly tachycardic although she is uncomfortable at this time, will give small fluid bolus. Will give enema given the stool imp action TRAVEL OUTSIDE OF THE [place] IN LAST 30 DAYS: No - Related Data Allergies/Adverse Reactions: No Known Allergies Allergy (Verified 12/20/19 20:11) Past Medical History - Social History Smoking Status: Former Smoker Frequency of alcohol use: None Drug Abuse: None Family History: Reviewed & Not Pertinent, Other - Unobtainable from the patient - Past Medical History Cardiac Medical History: Reports: Hx Hypercholesterolemia, Hx Hypertension Denies: Hx Coronary Artery Disease, Hx Heart Attack Pulmonary Medical History: Reports: Hx Asthma, Hx Bronchitis, Hx COPD Denies: Hx Pneumonia Neurological Medical History: Denies: Hx Cerebrovascular Accident, Hx Seizures Renal/ Medical History: Denies: Hx Peritoneal Dialysis GI Medical History: Reports: Hx Gastroesophageal Reflux Disease Musculoskeletal Medical History: Reports Hx Arthritis Skin Medical History: Reports Hx Cellulitis Psychiatric Medical History: Reports: Hx Depression - Not currently depressed Past Surgical History: Reports: Hx Bowel Surgery, Hx Hysterectomy, Hx Tonsillectomy - Immunizations Hx Diphtheria, Pertussis, Tetanus Vaccination: No Hx Pneumococcal Vaccination: 03/03/12 Physical Exam - Vital signs Vitals: Temp Pulse Resp BP Pulse Ox 100.1 F 116 H 16 127/78 H 91 L 12/20/19 20:09 12/20/19 20:09 12/20/19 20:09 12/20/19 20:09 12/20/19 20:09 Course - Re-evaluation Re-evalutation: 12/20/19 22:36 Potassium was noted to be 2.1. Will give 40 mEq oral and 40 mEq IV 12/21/19 02:54 Patient has been somewhat obstinate about treatment here in the emergency department and I had to speak to her several times. She initially declined to take potassium replacement but when informed that a low potassium cannot only cause constipation issues but could also stop her heart and kill her she agreed to take the potassium replacement. Patient had a fairly large bowel movement after enema, no further rectal pain still mildly tachycardic with a heart rate of approximately 108-110. Discussed with Dr. Pham, attending. Patient is refusing to give a urine specimen. I have offered to straight cath the patient she declines. Have offered to use a bedpan and patient again declines. We cannot tell the patient that she does not have a urinary tract infection and she is aware of this. She is aware that if she does have a UTI she may have worsen ing symptoms, sepsis, disability or . Patient verbalizes understanding of this. Patient is alert and oriented answering all questions appropriately at this time. Her CT imaging does not show acute emergent abnormalities. Lab work other than potassium does not show acute emergent or actionable abnormalities at this time. We will plan to discharge patient back to her facility, will request that the facility obtain a urine specimen to send off to ensure that this is followed. Patient will be given magnesium citrate to also help with her constipation issues. - Vital Signs Vital signs: Temp Pulse Resp BP Pulse Ox 99.5 F 116 H 23 H 159/76 H 91 L 12/20/19 23:49 12/20/19 20:09 12/21/19 01:00 12/21/19 00:02 12/21/19 00:27 - Laboratory Result Diagrams: 12/20/19 21:38 12/20/19 21:38 Laboratory results interpreted by me: 12/20/19 12/20/19 21:38 21:38 WBC 14.1 H RDW 14.7 H Lymph % (Auto) 9.7 L Absolute Neuts (auto) 11.6 H Seg Neutrophils % 82.4 H Potassium 2.1 L* Chloride 92 L Carbon Dioxide 37 H Est GFR (MDRD) Non-Af 59 L AST 41 H Discharge - Discharge Clinical Impression: Abdominal pain, left lower quadrant, Constipation Condition: Fair Disposition: HOME, SELF-CARE Additional Instructions: You have declined to give a urine specimen here tonight we cannot tell you that you do not have a urinary infection causing some of your symptoms tonight. Please be aware that without ruling this out there is a chance that you can become more ill which can lead to disability sepsis or . Your CT imaging showed no acute abnormalities other than constipation. Take the magnesium citrate when you return to your facility as this will help with your bowel movements in the next 24 to 48 hours. Follow-up with your primary care provider for reevaluation of symptoms call for appointment. Make sure that your facility is able to send a urine specimen or culture to ensure that you do not have a urinary infection. If you have worsening symptoms please return for reevaluation Prescriptions: Polyethylene Glycol 3350 [Miralax] 1 cap PO DAILY #527 powder Referrals: ANGÉLICA DASH MD [Primary Care Provider] - Follow up as needed
[2019-12-20 21:55] LABS: ABSOLUTE BASOPHILS # (AUTO) 0.1 10^3/uL (0.0-0.2); ABSOLUTE EOSINOPHILS # (AUTO) 0.2 10^3/uL (0.0-0.6); ABSOLUTE LYMPHOCYTES (AUTO) 1.4 10^3/uL (0.5-4.7); ABSOLUTE MONOCYTES (AUTO) 0.8 10^3/uL (0.1-1.4); ABSOLUTE NEUT (AUTO) 11.6 10^3/uL (1.7-8.2); BASOPHILS % (AUTO) 0.9 % (0-2); EOSINOPHILS % (AUTO) 1.2 % (0-6); HEMATOCRIT 38.9 % (36.0-47.0); HEMOGLOBIN 13.2 g/dL (12.0-15.5); LYMPHOCYTES % (AUTO) 9.7 % (13-45); MEAN CORPUSCULAR HEMOGLOBIN 32.8 pg (27.0-33.4); MEAN CORPUSCULAR HGB CONC 33.9 g/dL (32.0-36.0); MEAN CORPUSCULAR VOLUME 97 fl (80-97); MONOCYTES % (AUTO) 5.8 % (3-13); PLATELET COUNT 307 10^3/uL (150-450); RED BLOOD COUNT 4.01 10^6/uL (3.72-5.28); RED CELL DISTRIBUTION WIDTH 14.7 % (11.5-14.0); SEGMENTED NEUTROPHILS % (AUTO) 82.4 % (42-78); TOTAL CELLS COUNTED % (AUTO) 100 %; WHITE BLOOD COUNT 14.1 10^3/uL (4.0-10.5)
[2019-12-20 22:29] LABS: ALBUMIN 4.1 g/dL (3.5-5.0); ALKALINE PHOSPHATASE 72 U/L (38-126); ANION GAP 10 (5-19); ASPARTATE AMINO TRANSFERASE 41 U/L (14-36); BILIRUBIN,DIRECT 0.4 mg/dL (0.0-0.4); BILIRUBIN,TOTAL 0.8 mg/dL (0.2-1.3); BLOOD UREA NITROGEN 13 mg/dL (7-20); CALCIUM 9.1 mg/dL (8.4-10.2); CARBON DIOXIDE 37 mmol/L (22-30); CHLORIDE 92 mmol/L (98-107); GLUCOSE 98 mg/dL (75-110); TOTAL PROTEIN 7.4 g/dL (6.3-8.2)
[2019-12-20 22:31] LABS: POTASSIUM 2.1 mmol/L (3.6-5.0)
[2019-12-20] MEDS ORDERED: POTASSIUM CHLORIDE 10 MEQ TABLET.ER PO ONE (22:34)
[2019-12-21] MEDS: POTASSI CL 20 MEQ/50 ML RIDER 20 MEQ/50 ML RTUPB IV SCH ×4 (00:03→03:19)
[2019-12-21] MEDS ORDERED: POTASSIUM CHLORIDE 10 MEQ TABLET.ER PO ONE (00:33)
[2019-12-21] MEDS ORDERED: MAGNESIUM CITRATE 296 ML BOTTLE PO ONE (01:30)
--- NOTE | 2019-12-21 01:43 | RADIOLOGY REPORT (SQ) ---
CLINICAL INDICATION: LLQ abd pain. CREAT 0.95. . TECHNIQUE: Contrast enhanced spiral axial CT imaging was obtained of the abdomen and pelvis with multiplanar reconstructions. This exam was performed according to our departmental dose-optimization program, which includes automated exposure control, adjustment of the mA and/or kV according to patient size and/or use of iterative reconstruction techniques. Additional delayed phase imaging COMPARISON: August 15, 2018. CORRELATION: None. FINDINGS: Abdomen: The lung bases demonstrates chronic change. Scarring at the lung bases. The heart is of normal size. No evidence of pleural or pericardial fluid. The liver is fatty infiltrated, similar to prior. The gallbladder is nondistended without inflammatory change. The pancreas is unremarkable. The spleen is unremarkable. The adrenals are unremarkable. The kidneys appear grossly normal without evidence of urolithiasis or hydronephrosis. Symmetric nephrograms. There is no evidence of free air. No free fluid. No bulky adenopathy. Abdominal aorta is nonaneurysmal. Pelvis: The bowel is nonobstructed. No focal inflammatory change. Pelvic contents are unremarkable. The appendix is not convincingly seen. Visualized bones demonstrate age-appropriate osteoarthritis mild grade 1 anterior spondylolisthesis of L4 on L5 and L5 on S1 due to facet degenerative changes, and similar to prior. There may be autofusion at these levels.. No acute IMPRESSION: No acute intra-abdominal process is identified. Hepatic steatosis is again seen. The bowel is nonobstructed..
[2019-12-21] MEDS ORDERED: MINERAL OIL 30 ML UDCUP ONE (01:54)
[2019-12-21 05:00] VITALS: BP 110/82
--- NOTE | 2019-12-21 10:11 | EKG REPORT ---
SEVERITY:- ABNORMAL ECG - SEVERE BASELINE ARTEFACT MAKES RHYTHM ASSESMENT DIFFICULT : Confirmed by: Kwasi Katz MD 21-Dec-2019 10:10:24
== END 2019-12-21 05:17 | disposition home or self-care (01) ==
LOC: ER 19:28
DX: K59.00 Constipation, unspecified (principal); R10.32 Left lower quadrant pain; K76.0 Fatty (change of) liver, not elsewhere classified; I10 Essential (primary) hypertension; J44.9 Chronic obstructive pulmonary disease, unspecified; Z87.891 Personal history of nicotine dependence
CPT/HCPCS: 93005; 99285; 96361; 96365; 96366; 36415; 83690; 85025; 80053; 74177; 93010; A9270 ×3; J3480; J7040; J3490